=== PATIENT | male | born 1940 | race Caucasian/White ===

== ENCOUNTER → 2019-06-26 15:11 | Outpatient (CLI) | payer MEDICARE, SELFPAY ==
[2016-08-23 08:20] VITALS: BMI 25.1
[2019-06-26 15:20] LABS: Bacteria 0 SEEN /hpf (None Seen); Mucous, Urine 0 SEEN /hpf (<or=2+); Red Blood Cells-Urine 0 SEEN /hpf (0-5); Squamous Epithelial Cells - UA 0 SEEN /hpf (0-5); White Blood Cells 0 SEEN /hpf (0-5)
[2019-06-26 17:30] LABS: Color, Urine Yellow (Yellow); Glucose, Dipstick Normal (Normal); Ketone-Dipstick Negative (Negative); Leukocyte Esterase-Dipstick Negative /ul (Negative); Nitrite-Dipstick Negative (Negative); Occult Blood-Urine Negative /ul (Negative); Protein-Dipstick Negative (Negative); Urine Bilirubin Dipstick Negative (Negative); Urine Clarity Clear (Clear); Urine Urobilinogen Normal (Normal); Urine pH 6.5 (5.0 - 8.0)
[2019-06-26 17:35] LABS: Erythrocyte Sedimentation Rate 8 mm/hr (0-20)
[2019-06-26 17:47] LABS: PSA,Total - Annual Screen 2.71 ng/mL (0.00-4.00)
[2019-06-28 10:35] LABS: ASO Titer 294.7 IU/mL (0.0-200.0)
[2019-06-28 16:07] LABS: Anti-Nuclear Antibody Test Negative (.)
== END ==
PROVIDERS: PCP Internal Medicine; Referring Provider Dermatology Pediatric Dermatology; Visit Provider Dermatology Pediatric Dermatology
DX: L30.9 Dermatitis, unspecified (principal); Z12.5 Encounter for screening for malignant neoplasm of prostate
CPT/HCPCS: 36415; 81001; 84153; 85652; 86038; 86060; G0103

== ENCOUNTER 2019-09-12 11:36 | Emergency (ER) | payer MEDICARE, SELFPAY ==
[2019-09-12 11:37] VITALS: BP 144/90; PULSE 79; RESP 16; TEMP 36.5; O2SAT 96; BMI 24.2
--- NOTE | 2019-09-12 12:00 | ED.DCSUM_ITS ---
History of Present Illness Chief Complaint: Upper Extremity Injury Informant: Patient Onset: Today Mechanism/Context: Blunt Injury Quality of Pain: Dull Current Severity: Mild Maximum Severity: Moderate Worsened by: Injury Relieved by: Nothing Associated Symptoms: - - Large hematoma with skin tear. Negative for: Parasth esias, Weakness, Loss of function, Inability to ambulate, Loss of consciousness, Amnesia Narrative: Patient is an elderly [id number] male who sustained blunt trauma to the radial dorsal proximal portion of his left forearm. He denies pain or loss of use. He denies paresthesia, anesthesia motors. Tetanus is up-to-date. He is on aspirin. He is not on an anticoagulant. He states he was cleaning a stall. Bolted towards him and ran into him breaking the broom he was holding and bumping his left forearm. He denies head trauma. Eyes neck pain. Eyes chest pain. He has no other complaints. Tetanus Immunization: <5 years - Past Medical History (1) Benign prostatic hypertrophy Status: Chronic (2) Hypertension Status: Chronic Past Medical History - Allergies and Home Meds Allergies/Adverse Reactions: Allergies No Known Allergies Allergy (Verified 09/12/19 11:45) Primary Care Physician: Berny Tripathi MD [Primary Care Provider] - Prior records reviewed: Yes Surgical History: herniorrhaphy, - - Surgery for deviated nasal septum. Lives: Spouse/ Significant Other Smoking Status: Never smoker Alcohol: None Drugs: None - Family History Maternal Family History: Reports: No pertinent history Paternal Family History: Reports: No pertinent history Review of Systems General: Denies: Chills, Fever Musculoskeletal: Reports: Swelling. Denies: Myalgias, Arthralgias, Neck pain, Back pain, Extremity Pain Skin: Reports: Wounds. Denies: Rash, Abscess, Abrasions Neurological: Denies: Headache, Weakness, Parasthesia, Numbness, -, - Hematologic: Reports: Easy bruising. Denies: Easy bleeding, Lymphadenopathy Physical Exam Vital Signs/Narrative: Vital Signs Temp Pulse Resp BP Pulse Ox 09/12/19 11:37 97.7 F L 79 16 144/90 H 96 Inital Vital Signs reviewed: Yes General: Well nourished, Well developed Head: Normocephalic, Atraumatic Eyes: Perrl, EOMI Neck: Nontender, Full ROM Cardiovascular: Regular rate, Regular rhythm Respiratory: No distress Extremeties: With large hematoma dorsal radial proximal left forearm. There is a skin tear that is 4 cm x 2.5 cm x 4 cm. The area of injury does not involve the subcutaneous tissue. There is no pain palpation over the medial or lateral epicondyle. Is no pain the patient over the olecranon process. There is no pain the patient over the radial head. Patient is able to extend and flex and rotate i.e. supinate pronate at the elbow with no discomfort or hesitation. Radial pulses palpable. Median, radial and ulnar function intact. Skin: Normal color, Trauma - Deviously described under the extremity portion of the chart Neurological: Alert, Oriented x3, Cranial nerves II-XII grossly intact, Normal Strength, Normal Sensation Psychological: Normal affect - Glascow Coma Scale Eye Opening: Spontaneous Motor: Obeys Commands Verbal: Oriented Coma Scale Total: 15 Diagnostic/Tx/Re-eval - Medical Decision Making Since there is no pain no pain to palpation imaging was not obtained. He was treated for a hematoma with skin tear. He was discharged with appropriate home- going instructions. ED Disposition - Plan for ED Patient: Disposition: Home or Assisted Living Diagnosis: Skin tear of right forearm without complication, Traumatic hematoma of left forearm Instructions: ED AVULSION LACERATION, ED Hematoma Referrals: Berny Tripathi MD [Primary Care Provider] - 3-5 Days Additional Instructions: Dr. Tripathi in 3 to 5 days for skin tear/wound reevaluation.
== END 2019-09-12 12:29 | disposition home or self-care (01) ==
LOC: ED 12:09
PROVIDERS: Emergency Provider Emergency Medicine; PCP Internal Medicine
DX: S50.12XA Contusion of left forearm, initial encounter (principal); S51.811A Laceration without foreign body of right forearm, initial encounter; Y29.XXXA Contact with blunt object, undetermined intent, initial encounter; Y92.9 Unspecified place or not applicable; Y99.9 Unspecified external cause status; N40.0 Benign prostatic hyperplasia without lower urinary tract symptoms; I10 Essential (primary) hypertension; Z79.82 Long term (current) use of aspirin
CPT/HCPCS: 99283

== ENCOUNTER 2020-05-17 22:02 | Emergency (ER) | payer MEDICARE, SELFPAY ==
[2020-05-17 22:03] VITALS: BP 154/88; PULSE 85; RESP 20; TEMP 35.8; O2SAT 97; BMI 24.3
--- NOTE | 2020-05-17 22:07 | ED.RN ---
[facility] CALLED FOR EKG, PULLED OLD EKGS FOR
--- NOTE | 2020-05-17 22:16 | EKG12_ITS ---
Test Reason : PALPITATIONS Blood Pressure : / mmHG Vent. Rate : 084 BPM Atrial Rate : 084 BPM P-R Int : 196 ms QRS Dur : 100 ms QT Int : 354 ms P-R-T Axes : 050 -58 037 degrees QTc Int : 418 ms Normal sinus rhythm Left axis deviation Incomplete right bundle branch block Abnormal ECG Confirmed by ADELE CARVER, BRAYAN ([id number]), editor news RITA ROSALES ([id number]) on 05/19/2020 12:22:42 P M Referred By: PATIENCE Confirmed By:PADMA ANGULO MD
--- NOTE | 2020-05-17 22:20 | ED.VIS.GEN ---
History of Present Illness Chief Complaint: Palpitations Narrative: Patient presenting due to an elevated heart rate. Patient has an underlying history of hypertension, he is on metoprolol no recent changes in his medications or missed doses. Patient states that last night he felt a little bit restless so he took his blood pressure and his heart rate and noted that his heart rate was in the 80s. Tells me that his heart rate usually is in the 60s and this concerned him because his heart rate stayed in the 80s all day. He denies any has any chest pain. Denies any shortness of breath. He denies any palpitations, weight loss, changes in appetite, heat or cold intolerance. Patient does report that he has had similar episodes in the past. He denies any underlying history of arrhythmia. Review of systems otherwise negative. Past Medical History - Allergies and Home Meds Allergies/Adverse Reactions: Allergies No Known Allergies Allergy (Verified 05/17/20 22:09) Primary Care Physician: Berny Tripathi MD [Primary Care Provider] - Prior records reviewed: Yes Past Medical History: - - Hypertension, kidney stones Surgical History: herniorrhaphy, - - Surgery for deviated nasal septum. Smoking Status: Never smoker Alcohol: None Drugs: None - Family History Maternal Family History: Reports: No pertinent history Paternal Family History: Reports: No pertinent history Review of Systems All systems negative except as indicated General: Denies: Chills, Fever, Sweats Eyes: Denies: Visual changes - bilaterally, Diplopia ENT: Denies: Rhinorrhea, Sore throat Cardiovascular: Reports: Heart racing Respiratory: Denies: Dyspnea, Cough, Dyspnea on exertion Gastrointestinal: Denies: Abdominal pain, Nausea, Vomiting, Diarrhea, Melena, Hematochezia Genitourinary: Denies: Dysuria, Hematuria, Frequency Musculoskeletal: Denies: Back pain, Extremity Pain Skin: Denies: Rash, Wounds Neurological: Denies: Headache, Weakness, Numbness Physical Exam Vital Signs/Narrative: Vital Signs Temp Pulse Resp BP Pulse Ox 05/17/20 22:03 96.4 F L 85 20 H 154/88 H 97 Inital Vital Signs reviewed: Yes General: Well nourished, Well developed, No Acute Distress Head: Normocephalic, Atraumatic Eyes: Perrl, EOMI ENT: Moist mucous membranes, No rhinorrhea Neck: Supple, Nontender, - - Thyroid is normal to palpation, nontender Cardiovascular: Regular rate, Regular rhythm, No murmurs Respiratory: No distress, CTA bilaterally, Chest nontender Abdomen: Soft, Nontender, Nondistended, Normal bowel sounds Back: Nontender, Normal Inspection Extremities: Nontender, No edema Skin: Normal color, No rash Neurological: Alert, Oriented x3, Cranial nerves II-XII grossly intact, Normal Strength, Normal Sensation Psychological: Normal affect, Normal Mood Diagnostic/Tx/Re-eval Laboratory Data 05/17/20 05/17/20 22:17 22:17 WBC 6.5 RBC 4.36 L Hgb 14.2 Hct 42.1 MCV 96.6 H MCH 32.6 H MCHC 33.7 RDW Std Deviation 40.5 RDW Coeff of Francis 11.5 L Plt Count 142 L MPV 11.4 Immature Gran % (Auto) 0.200 Neut % (Auto) 72.7 H Lymph % (Auto) 17.4 L [place] % (Auto) 8.6 Eos % (Auto) 0.6 Baso % (Auto) 0.5 Absolute Neuts (auto) 4.7 Absolute Lymphs (auto) 1.13 Nucleated RBC % 0 Sodium 138 Potassium 3.6 Chloride 107 Carbon Dioxide 26.0 Anion Gap 5 BUN 25 H Creatinine 1.29 Estim Creat Clear Calc 49.29 Est GFR (MDRD) Af Amer 69 Est GFR (MDRD) Non-Af 57 L BUN/Creatinine Ratio 19.4 Glucose 145 H Calcium 9.0 Troponin I < 0.015 TSH 2.04 - EKG Initial EKG Interpretation: - Prior: Unchanged - Medical Decision Making Patient presented secondary to concerns for an elevated heart rate. In the emergency department the patient never really had elevated heart rates, no signs of malignant arrhythmia. Laboratory work-up found to be unremarkable, normal electrolytes TSH and troponin. Patient was given reassurance. Patient was discharged with outpatient follow-up with his primary care physician on Tuesday. ED Disposition - Plan for ED Patient: Disposition: Home or Assisted Living Diagnosis: Palpitations Instructions: ED Palpitations Referrals: Berny Tripathi MD [Primary Care Provider] - Keep David appointment
[2020-05-17 22:40] LABS: Absolute Lymphocyte Count 1.13 X10^3/uL (0.83-4.51); Absolute Neutrophil Count 4.7 X10^3/uL (2.0-7.7); Basophil# 0.03 X10^3/uL; Basophil% 0.5 % (0-1); Eosinophil# 0.04 X10^3/uL; Eosinophils% 0.6 % (0-5); Hematocrit 42.1 % (40-54); Hemoglobin 14.2 g/dL (13.0-16.5); Lymphocyte # 1.13 X10^3/ul (4.0); Lymphocyte % 17.4 % (19-41); Mean Corp Hgb Conc 33.7 g/dL (32-36); Mean Corpuscular Hgb 32.6 pg (27.0-32.0); Mean Corpuscular Volume 96.6 fL (80-94); Mean Platelet Vol. 11.4 fl (6.2-12.0); Monocyte# 0.56 X10^3/uL; Monocyte% 8.6 % (0-10); NRBC Flagged by Analyzer 0 % (0-5); Neutrophil # 4.72 X10^3/uL (2.7-7.7); Neutrophil % 72.7 % (47-70); Platelet Count 142 K/mm3 (150-450); RBC Distribution Width CV 11.5 % (11.6-14.6); RBC Distribution Width SD 40.5 fl (35.1-43.9); Red Blood Count 4.36 M/mm3 (4.6-6.2); White Blood Count 6.5 K/mm3 (4.4-11.0)
[2020-05-17 22:55] VITALS: BP 150/93; PULSE 103; RESP 13; O2SAT 97
[2020-05-17 22:59] LABS: Anion Gap 5 (5-15); BUN 25 mg/dL (7-18); BUN/Creat Ratio 19.4 RATIO (10-20); Chloride 107 mmol/L (98-107); Creatinine, Serum 1.29 mg/dL (0.70-1.30); EST Glomerular Filtration Rate 57 mL/min (>60); Est Glom Filt Rate - Afr Amer 69 mL/min (>60); Estimated Creatinine Clearance 49.29 ml/min; Glucose 145 mg/dL (74-106); Potassium 3.6 mmol/L (3.5-5.1); Sodium Level 138 mmol/L (136-145); Thyroid Stim Hormone (TSH) 2.04 uIU/mL (0.358-3.74)
[2020-05-17 23:26] VITALS: BP 142/67; PULSE 75; RESP 14; O2SAT 97
== END 2020-05-17 23:27 | disposition home or self-care (01) ==
PROVIDERS: Emergency Provider Emergency Medicine; PCP Internal Medicine
DX: R00.2 Palpitations (principal); I10 Essential (primary) hypertension; Z87.442 Personal history of urinary calculi
CPT/HCPCS: 80048; 84443; 84484; 85025; 93005; 99285; A4216

== ENCOUNTER → 2020-07-04 08:44 | Outpatient (CLI) | payer MEDICARE, SELFPAY ==
[2020-06-18 11:38] VITALS: BMI 24.0
--- NOTE | 2020-07-04 08:44 | ECHOD_ITS ---
Reason For Study: ARRHYTHMIA Procedure This was a 2D Doppler, Color Flow transthoracic echocardiogram. Exam performed in department. Left Ventricle Normal LV size. Left ventricular systolic function is normal. The estimated ejection fraction is 55 %. Stage 1 diastolic dysfunction. No regional wall motion abnormalities noted. Right Ventricle Normal RV size. Normal systolic function. Atria Normal left atrium. Normal right atrium. Tricuspid Valve Normal tricuspid valve. Mild (1+) tricuspid valve insufficiency. Pulmonary artery systolic pressure is 28 mmHg. Aortic Valve Trisinus/trileaflet aortic valve. Mild focal aortic valve calcification. Peak aortic valve gradient 14 mmHg. Mean aortic valve gradient 8 mmHg. Mild aortic stenosis. Great Vessels Normal aortic root. The pulmonary artery is normal size. Normal inferior vena cava. Pericardium/Pleural No pericardial effusion. MMode/2D Measurements & Calculations LVIDd: 5.3 cm IVSd: 1.1 cm LVOT diam: 2.0 cm LVIDs: 3.9 cm LVPWd: 1.0 cm LVOT area: 3.2 cm2 RVDd: 3.1 cm FS: 25.7 % Ao root diam: 3.0 cm LAV(MOD-bp): 42.6 ml LA A4 area: 14.7 cm2 LAV(MOD-bp) Indexed: 21.1 ml/m2 LAV(MOD-sp2): 42.6 ml LAV(MOD-sp4): 40.2 ml LA dimension(2D): 4.3 cm RA A4 area: 13.8 cm2 Time Measurements MV dec time: 0.28 sec Doppler Measurements & Calculations MV E max saran: 54.2 cm/sec Lat Peak E' Saran: 8.5 cm/sec Med Peak E' Saran: 6.8 cm/sec MV A max saran: 63.5 cm/sec E/E' lat: 6.4 E/E' med: 8.0 MV E/A: 0.85 Ao V2 max: 186.7 cm/sec LV V1 max: 94.5 cm/sec SV(LVOT): 71.7 ml Ao max P.0 mmHg LV V1 max P.6 mmHg Ao V2 mean: 134.0 cm/sec LV V1 mean P.1 mmHg Ao mean P.9 mmHg LV V1 mean: 69.2 cm/sec Ao V2 VTI: 42.3 cm LV V1 VTI: 22.5 cm DEREK(I,D): 1.7 cm2 DEREK(V,D): 1.6 cm2 PA V2 max: 115.4 cm/sec TR max saran: 247.7 cm/sec TR max P.5 mmHg ECHO/Echo Complete Interpretation Summary Normal LV size. Left ventricular systolic function is normal. The estimated ejection fraction is 55 %. Stage 1 diastolic dysfunction. Mean aortic valve gradient 8 mmHg. Mild aortic stenosis. Ordering Physician: Quique Arellano Referring Physician: Berny Tripathi Performed By: Eun Maldonado RDCS, RVT
== END ==
PROVIDERS: PCP Internal Medicine; Referring Provider Internal Medicine Cardiovascular Disease; Visit Provider Internal Medicine Cardiovascular Disease
DX: R00.2 Palpitations (principal)
CPT/HCPCS: 93306

== ENCOUNTER → 2020-07-07 09:01 | Outpatient (CLI) | payer MEDICARE, SELFPAY ==
[2020-06-18 11:38] VITALS: BMI 24.0
== END ==
PROVIDERS: PCP Internal Medicine; Referring Provider Internal Medicine Cardiovascular Disease; Visit Provider Internal Medicine Cardiovascular Disease
DX: R00.2 Palpitations (principal)
CPT/HCPCS: 93225; 93226

== ENCOUNTER → 2020-08-14 12:48 | Outpatient (CLI) | payer MEDICARE, SELFPAY ==
[2020-07-30 08:37] VITALS: BMI 24.8
--- NOTE | 2020-08-14 12:49 | US_ITS ---
STUDY: RENAL ULTRASOUND - COMPLETE REASON FOR EXAM: Male, 80 years old. ACUTE CHRONIC RENAL FAILURE TECHNIQUE: Ultrasound evaluation of the kidneys was performed with real-time and static wakefield-scale imaging. COMPARISON: None. FINDINGS: RIGHT KIDNEY: Normal location of the right kidney, which is normal in size. The right kidney measures 14.4 cm x 4.8 cm x 7.6 cm. There is a normal cortex of the right kidney. The renal cortex measures 1.6 cm. There is an 8.1 cm x 6.9 cm x 6.4 cm renal cyst. There are no right renal calculi. There is no right hydronephrosis. DISTAL RIGHT URETER: There is non-visualization of the distal right ureter. There is no demonstrated right ureterovesical junction calculus. There is no demonstrated right ureteral jet. LEFT KIDNEY: Normal location of the left kidney, which is normal in size. The left kidney measures 10.6 cm x 3.7 cm x 6.3 cm. There is a normal cortex of the left kidney. The renal cortex measures 1.2 cm. 3 left renal cysts are seen. The largest measures 5.1 cm x 5 cm x 4.9 cm. There is a 5 mm x 6 mm x 3 mm nonobstructive left intrarenal calculus. There is no left hydronephrosis. DISTAL LEFT URETER: There is non-visualization of the distal left ureter. There is no demonstrated left ureterovesical junction calculus. There is no demonstrated left ureteral jet. BLADDER: The bladder is not adequately distended for assessment. US/Kidney and Bladder IMPRESSION: Bilateral renal cysts more prominent on the left side. 5 mm x 6 mm x 3 mm nonobstructive calculus in the left kidney. Electronically Signed: Willam Barkley MD at 15:23 EDT , Service support ,
== END ==
PROVIDERS: PCP Internal Medicine; Referring Provider Internal Medicine Nephrology; Visit Provider Internal Medicine Nephrology
DX: N17.9 Acute kidney failure, unspecified (principal)
CPT/HCPCS: 76770

== ENCOUNTER → 2020-10-03 08:27 | Outpatient (CLI) | payer MEDICARE, SELFPAY ==
[2020-07-30 08:37] VITALS: BMI 24.8
[2020-10-03 09:09] LABS: Hematocrit 42.7 % (40-54); Hemoglobin 14.2 g/dL (13.0-16.5); Mean Corp Hgb Conc 33.3 g/dL (32-36); Mean Corpuscular Hgb 32.7 pg (27.0-32.0); Mean Corpuscular Volume 98.4 fL (80-94); Mean Platelet Vol. 11.3 fl (6.2-12.0); Platelet Count 126 K/mm3 (150-450); RBC Distribution Width CV 11.6 % (11.6-14.6); RBC Distribution Width SD 42.2 fl (35.1-43.9); Red Blood Count 4.34 M/mm3 (4.6-6.2); White Blood Count 5.3 K/mm3 (4.4-11.0)
[2020-10-03 09:54] LABS: BUN 23 mg/dL (7-18); BUN/Creat Ratio 21.5 RATIO (10-20); Calcium,Total 8.5 mg/dL (8.5-10.1); Chloride 108 mmol/L (98-107); Creatinine, Serum 1.07 mg/dL (0.70-1.30); EST Glomerular Filtration Rate 70 mL/min (>60); Est Glom Filt Rate - Afr Amer 85 mL/min (>60); Glucose 87 mg/dL (74-106); Phosphorus 1.9 mg/dL (2.5-4.9); Potassium 3.9 mmol/L (3.5-5.1); Sodium Level 141 mmol/L (136-145)
[2020-10-03 09:55] LABS: PTHIN 44.3 pg/mL (18.4-80.1)
== END ==
PROVIDERS: PCP Internal Medicine; Referring Provider Internal Medicine Nephrology; Visit Provider Internal Medicine Nephrology
DX: N17.9 Acute kidney failure, unspecified (principal); N18.31 Chronic kidney disease, stage 3a
CPT/HCPCS: 36415; 80069; 83970; 85027

== ENCOUNTER → 2021-04-02 08:03 | Outpatient (CLI) | payer MEDICARE, SELFPAY ==
[2020-07-30 08:37] VITALS: BMI 24.8
[2021-04-02 09:08] LABS: Albumin, Serum 3.8 g/dL (3.2-5.0); BUN 20 mg/dL (7-18); BUN/Creat Ratio 17.9 RATIO (10-20); Calcium,Total 8.8 mg/dL (8.5-10.1); Chloride 107 mmol/L (98-107); Creatinine, Serum 1.12 mg/dL (0.70-1.30); EST Glomerular Filtration Rate 67 mL/min (>60); Est Glom Filt Rate - Afr Amer 81 mL/min (>60); Glucose 95 mg/dL (74-106); Phosphorus 2.1 mg/dL (2.5-4.9); Potassium 3.8 mmol/L (3.5-5.1); Sodium Level 142 mmol/L (136-145)
== END ==
PROVIDERS: PCP Internal Medicine; Visit Provider Internal Medicine Nephrology
DX: N18.31 Chronic kidney disease, stage 3a (principal)
CPT/HCPCS: 36415; 80069

== ENCOUNTER 2021-08-14 16:11 | Emergency (ER) | payer MEDICARE, SELFPAY ==
[2021-08-14 16:13] VITALS: BP 124/71; PULSE 78; RESP 16; TEMP 36.9; O2SAT 98; BMI 27.7
--- NOTE | 2021-08-14 18:27 | EX.ED.DYSGE1 ---
HPI History of Present Illness Chief Complaint: Confusion Informant: patient and family Narrative Narrative: Patient presents with daughter. She is concerned that he seems to be a little bit confused on times. This is mostly based on taking morning medications. However, she is not sure in what time. He has been confused on his times. I have asked about 4 times and cannot get if this is been going on for days weeks months or years. I do find a note from outpatient visit from the fourth of this month that states he has had periods of confusion back in the winter. She states that this morning he took his morning meds. He takes these about an hour or so before eating. However, he took a metoprolol out of the pill bottle and took them with his morning meds but not with his breakfast meds. When she presented him with his breakfast meds he stated he had already taken the metoprolol and so he put that tablet back into the bottle. He remembered what he took. He just took it at a slightly different time. She states he has had no problems taking his meds in the afternoon or evening. This is only happened a couple times in the morning. He has also had an episode where he woke up quite early at about 1 or 2 in the morning and started his morning routine. Patient has had no fall or injury. He did have a recent UTI and was on Cipro. This stopped yesterday. They were just over at [facility]. A urinalysis was done that was clean. He has not had fevers or chills. 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 This was done at a facility in [facility]. He then had radiation. He has had a couple episodes of immunotherapy. They called his neuro oncology offices today at [facility] who recommended he go to the ER to get a CAT scan prior to his next visit. They are here to get a CAT scan and a CD copy of the images. 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 Nonrheumatic aortic (valve) stenosis Obstructive sleep apnea Sinus tachycardia Home Medications doxazosin 2 mg PO DAILY 10/18/15 [History Last Taken 08/23/16] multivitamin,fr-sler-kkphpmrz 1 tab PO DAILY 04/04/16 [History Last Taken 08/22/16] triamterene-hydrochlorothiazid 1 ea PO DAILY 04/04/16 [History Last Taken 08/23/16] pantoprazole 20 mg PO DAILY 08/23/16 [History Last Taken 08/23/16] amitriptyline 10 mg PO QHS 09/12/19 [History Last Taken Unknown] atorvastatin 10 mg PO QODAY 09/12/19 [History Last Taken Unknown] metoprolol tartrate 25 mg PO BID 05/17/20 [History Last Taken Unknown] Bifidobacterium infantis 4 mg capsule 4 mg PO DAILY 06/13/20 [History Last Taken Unknown] fluticasone propionate 50 mcg/actuation nasal spray,suspension 2 spray INTRANASAL DAILY 06/13/20 [History Last Taken Unknown] xmvbtsm-lxxwgztypmkrd-hekylgyi 250 mg-250 mg-65 mg tablet 1 tab PO ONCE PRN 06/18/20 [History Last Taken Unknown] Allergy/AdvReac Type Severity Reaction Status Date / Time terbinafine [From Lamisil] AdvReac Rash Verified 08/14/21 16:13 Surgical History (Updated 08/14/21 @ 20:[address] Miguel Hammer MD) H/O brain surgery History of nasal septoplasty Social History Smoking Status: Never smoker ROS ROS ED Constitutional Constitutional ED: Denies chills or fever(s) Eyes Eyes: Denies blurry vision ENT ENT ED: Denies rhinorrhea Cardiovascular Cardiovascular: Denies chest pain Respiratory/Chest Respiratory/Chest: Denies cough or dyspnea Gastrointestinal Gastrointestinal: Denies diarrhea or vomiting Genitourinary Genitourinary ED: Reports other Details: Recent UTI. Symptoms resolved, urine reported normal this morning and off of Cipro now. ; Denies dysuria or hematuria Musculoskeletal Musculoskeletal: Denies myalgias Integumentary Denies rash Neurologic Neurologic: Reports other Details: See history of present illness. ; Denies headache(s) Endocrine Endocrinology: Denies polydipsia or polyuria Allergic/Immunologic Allergic/Immunologic ED: Denies urticaria EXAM Physical Exam Const Vital Signs: 08/14/21 16:13 Temperature 98.5 F Temperature Source Temporal Pulse Rate 78 Respiratory Rate 16 Blood Pressure 124/71 H Blood Pressure Mean 88 Pulse Ox 98 Oxygen Delivery Method Room Air Positive well nourished and well developed General Appearance ED: well developed and NAD HEENT Reports moist mucous membranes HEENT Narrative: Well-healed surgical scar right side of scalp. Eyes General Eye ED: Negative for pale conjunctiva or scleral icterus Neck no JVD Chest Wall inspection of chest normal Resp normal respiratory effort and clear to auscultation bilaterally Cardio regular rate GI normal to inspection, nondistended, normoactive bowel sounds and non-tender Palpation: soft Back/Spine no CVA tenderness Extremity Negative for normal to inspection General Extremety ED: Negative for edema or tenderness General Extremity: Negative for edema Neuro oriented x3 Sensorium / Orientation: alert Psych mental status grossly normal Skin no rashes or lesions noted MDM MDM MDM Narrative Medical decision making narrative: Patient's blood work showed minimal anemia at 11 9. Electrolytes liver function test are overall normal. CAT scan does show some hygroma and mild vasogenic edema. However, he did have surgery as well as radiation recently. He does not have any shift. He does not have compression of ventricles. He also has no headaches. He has no vision changes. No gait problems. The daughter now found out from the patient that the reason he took the metoprolol or early is that he had a visiting nurse that was going to come out today that is a once a year visit for his health insurance. She was set to be there early in the morning and this would have disrupted the time he would normally take metoprolol. Therefore he wanted to take it before she got there so his blood pressure would be good and he did not forget to take it. This was a very rational decision that he made this morning. This is not confusion. Patient has an appointment with neurologist and neuro oncologist in 1 week. They would like to go home. They do have copy of images. She evidently has copies of prior imaging at home. I recommend they bring all these to the appointment so they can be compared. Lab Data Attestation: I reviewed the patient's lab results. Labs: Laboratory Results - last 24 hr 08/14/21 08/14/21 18:45 18:45 WBC 4.9 RBC 3.64 L Hgb 11.9 L Hct 37.1 L MCV 101.9 H MCH 32.7 H MCHC 32.1 RDW Std Deviation 54.2 H RDW Coeff of Francis 14.4 Plt Count 164 MPV 11.0 Immature Gran % (Auto) 0.600 Neut % (Auto) 64.4 Lymph % (Auto) 17.2 L [place] % (Auto) 14.2 H Eos % (Auto) 3.0 Baso % (Auto) 0.6 Absolute Neuts (auto) 3.2 Absolute Lymphs (auto) 0.85 Nucleated RBC % 0 Sodium 141 Potassium 4.1 Chloride 109 H Carbon Dioxide 29.0 Anion Gap 3 L BUN 18 Creatinine 0.99 Estim Creat Clear Calc 57.53 Est GFR (MDRD) Af Amer 93 Est GFR (MDRD) Non-Af 77 BUN/Creatinine Ratio 18.2 Glucose 95 Calcium 8.8 Total Bilirubin 0.50 AST 29 ALT 30 Alkaline Phosphatase 99 Total Protein 6.9 Albumin 3.5 Globulin 3.4 Albumin/Globulin Ratio 1.0 Radiography Diagnostic Testing: Clinical Impression(s) from Imaging Studies Brain CT 08/14/21 18:35 IMPRESSION: 1. No acute intracranial hemorrhage. 2. 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 3. Left frontal lobe mass with adjacent vasogenic edema. 4. Mild ventriculomegaly. 5. Recommend comparison to prior imaging studies. Absent comparison examination, recommend additional evaluation with contrast-enhanced MRI. Electronically Signed: Jw Shelby MD ([place]) at 19:01 EDT Reading Location ID and State: [facility] / [place] , Service support , Discharge Plan Triage Chief Complaint: Confusion ED Provider: Miguel Hammer Dx/Rx/DC Orders Clinical Impression: History of recent intracranial surgery Instructions: ED Confusion Prescriptions: No Action fluticasone propionate [Allergy Relief (fluticasone)] 50 mcg/actuation spray,suspension 2 spray INTRANASAL DAILY RF: 0 Align 4 mg capsule 4 mg PO DAILY RF: 0 Excedrin Migraine 250-250-65 mg tablet 1 tab PO ONCE PRNRF: 0 doxazosin 2 MG tablet 2 mg PO DAILY RF: 0 multivitamin,yx-pcdm-kyfyfhxy 1 TABLET tablet 1 tab PO DAILY RF: 0 triamterene-hydrochlorothiazid 1 EACH capsule 1 ea PO DAILY RF: 0 pantoprazole 20 MG tablet 20 mg PO DAILY RF: 0 atorvastatin 10 MG tablet 10 mg PO QODAY RF: 0 amitriptyline 10 MG tablet 10 mg PO QHS RF: 0 metoprolol tartrate 25 MG tablet 25 mg PO BID RF: 0 Primary Care Provider: Berny Tripathi Referrals: Berny Tripathi MD [Primary Care Provider] - As Needed Activity Restrictions/Additional Instructions: Keep your appointments this Tuesday. Disposition Disposition: Home, Self Care
--- NOTE | 2021-08-14 18:35 | CT_ITS ---
STUDY: CT BRAIN WITHOUT CONTRAST REASON FOR EXAM: Male, 81 years old. confusion RADIATION DOSAGE (If Supplied By Facility): CTDIvol = ( 44.99 ) mGy, DLP = ( 863.60 ) mGycm TECHNIQUE: Transaxial CT imaging of the brain was performed without administration of intravenous contrast material. Individualized dose optimization techniques were used for this CT. COMPARISON: No relevant priors. FINDINGS: Normal soft tissue structures. Normal calvarium. There is mild distention of the lateral and third ventricles. Mass of the left frontal lobe measuring 1.5 x 2.0 cm as seen on image 33 of series 2 with vasogenic edema posteriorly. There is also localized low density of the right frontal lobe with overlying craniotomy and linear hyperdensity, likely sequela of previous surgery. Small amount of extra-axial low-density fluid measuring 6 mm in thickness as seen on image 28 of series 2 likely representing a postoperative hygroma. Normal basal ganglia and thalami. Normal brainstem. Normal cerebellum. There is no intracranial hemorrhage. There are no findings of an acute ischemic infarction. Normal visualized paranasal sinuses. CT/Brain/Head without Contrast IMPRESSION: 1. No acute intracranial hemorrhage. 2. 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 3. Left frontal lobe mass with adjacent vasogenic edema. 4. Mild ventriculomegaly. 5. Recommend comparison to prior imaging studies. Absent comparison examination, recommend additional evaluation with contrast-enhanced MRI. Electronically Signed: Jw Shelby MD ([place]) at 19:01 EDT ,
[2021-08-14 18:58] LABS: Absolute Lymphocyte Count 0.85 X10^3/uL (0.83-4.51); Absolute Neutrophil Count 3.2 X10^3/uL (2.0-7.7); Basophil# 0.03 X10^3/uL; Basophil% 0.6 % (0-1); Eosinophil# 0.15 X10^3/uL; Hematocrit 37.1 % (40-54); Hemoglobin 11.9 g/dL (13.0-16.5); Lymphocyte # 0.85 X10^3/ul (0.83-4.51); Lymphocyte % 17.2 % (19-41); Mean Corp Hgb Conc 32.1 g/dL (32-36); Mean Corpuscular Hgb 32.7 pg (27.0-32.0); Mean Corpuscular Volume 101.9 fL (80-94); Monocyte% 14.2 % (0-10); NRBC Flagged by Analyzer 0 % (0-5); Neutrophil # 3.17 X10^3/uL (2.7-7.7); Neutrophil % 64.4 % (47-70); POSITIVE MORPHOLOGY YES; Platelet Count 164 K/mm3 (150-450); RBC Distribution Width CV 14.4 % (11.6-14.6); RBC Distribution Width SD 54.2 fl (35.1-43.9); Red Blood Count 3.64 M/mm3 (4.6-6.2); White Blood Count 4.9 K/mm3 (4.4-11.0)
[2021-08-14 19:03] LABS: Differential Indicated SCAN CRITERIA MET
[2021-08-14 19:16] LABS: AST(SGOT) 29 U/L (15-37); Alanine Aminotransfer ALT/SGPT 30 U/L (16-61); Albumin, Serum 3.5 g/dL (3.2-5.0); Alkaline Phosphatase 99 U/L (45-117); Anion Gap 3 (5-15); BUN 18 mg/dL (7-18); BUN/Creat Ratio 18.2 RATIO (10-20); Calcium,Total 8.8 mg/dL (8.5-10.1); Chloride 109 mmol/L (98-107); Creatinine, Serum 0.99 mg/dL (0.70-1.30); EST Glomerular Filtration Rate 77 mL/min (>60); Est Glom Filt Rate - Afr Amer 93 mL/min (>60); Estimated Creatinine Clearance 57.53 ml/min; Globulin 3.4 g/dL (2.2-4.2); Glucose 95 mg/dL (74-106); Potassium 4.1 mmol/L (3.5-5.1); Protein, Total 6.9 g/dL (6.4-8.2); Sodium Level 141 mmol/L (136-145)
[2021-08-14 20:06] VITALS: BP 157/81; PULSE 76; RESP 18; O2SAT 97
[2021-08-14 20:09] LABS: Atypical Lymphocyte 1+ %; Platelet Estimate ADEQUATE (ADEQ); Red Cell Morphology NORM C+C NORMAL (NORM C&C)
[2021-08-14 20:11] VITALS: RESP 18
== END 2021-08-14 20:11 | disposition home or self-care (01) ==
PROVIDERS: Emergency Provider Emergency Medicine; PCP Internal Medicine; Visit Provider Emergency Medicine
DX: R41.0 Disorientation, unspecified (principal); G93.6 Cerebral edema; N18.30 Chronic kidney disease, stage 3 unspecified; I12.9 Hypertensive chronic kidney disease with stage 1 through stage 4 chronic kidney disease, or unspecified chronic kidney disease; D18.1 Lymphangioma, any site; D64.9 Anemia, unspecified; E78.5 Hyperlipidemia, unspecified; G47.33 Obstructive sleep apnea (adult) (pediatric)
CPT/HCPCS: 70450; 80048; 80053; 85025; 99284

== ENCOUNTER 2021-08-16 20:31 | Emergency (ER) | payer MEDICARE, SELFPAY ==
[2021-08-16 20:31] VITALS: BP 106/86; PULSE 84; RESP 16; TEMP 36.4; O2SAT 97; BMI 27.7
--- NOTE | 2021-08-16 20:54 | CT_ITS ---
INDICATION: Trauma EXAMINATION: CT BRAIN - CT Head or Brain W/O Contrast Injection TECHNIQUE: Multiple axial images were obtained of the head without intravenous contrast. A radiation dose optimization technique was used for this scan. IV Contrast dosage and agent: None. COMPARISON: 08/14/2021 CT head FINDINGS: BRAIN PARENCHYMA: Left frontal lobe cortical hyperdensity with underlying vasogenic edema. This may represent a cortically based mass or possible cortical hemorrhage. No appreciable change compared to recent comparison exam. Right frontal lobe prior craniotomy with underlying thin hygroma and with underlying rim of slightly increased density and surrounding gliosis is unchanged compared to recent comparison exam. No other cortical or white matter abnormality exemplified. Normal midline anatomy. Note of scattered calcifications cavernous carotid arteries. Posterior fossa structures are unremarkable. CSF SPACES: Appropriate for age. No hydrocephalus. Basal cisterns are patent. CALVARIUM, SKULL BASE, PARANASAL SINUSES AND MASTOID AIR CELLS: Opacified right mastoid air cells, unchanged. No evidence of mastoiditis. No discrete lytic or blastic abnormalities. ORBITS: Both globes, extraocular muscles, optic nerves and retrobulbar fat appear unremarkable. ASPECTS Score for Acute Strokes: 10 CT/Brain/Head without Contrast IMPRESSION: No appreciable change compared to prior exam; left frontal lobe area of cortical hyperdensity and/or mass lesion with significant adjacent decreased density of the adjacent white matter suggesting vasogenic edema. No mass effect; this may be a chronic finding. No underlying cortical thinning to suggest scoliosis. Right frontal lobe findings are unchanged and likely chronic with areas of cortical thinning underlying the craniotomy more likely representing gliosis. Fluid right mastoid air cells without confluence to suggest mastoiditis. Electronically Signed: Uziel Santiago DO at 22:42 EDT ,
--- NOTE | 2021-08-16 20:55 | EX.ED.GENINJ ---
HPI History of Present Illness Chief Complaint: Head Injury Narrative Narrative: Patient presents with his because of injury to his head. He had a mechanical fall today. This was approximately 1 hour or less ago. He was pulling weeds and gravel, stood up and step down, and fell backwards, striking his head. He denies any neck pain or loss of consciousness. He sustained a superficial laceration to the right side of his occipital scalp. His tetanus immunization is up-to-date. 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 He did have a melanoma removed from the right side of his brain. She states that they were here recently and had a CT performed, and she is very concerned because he stated to the RN that he had a headache rated 4 out of 10 but denies any paresthesias. She wants to ensure that given his history of recent intracranial surgery with a blow to his head that there is no intracranial bleeding. 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 Nonrheumatic aortic (valve) stenosis Obstructive sleep apnea Sinus tachycardia Home Medications doxazosin 2 mg PO DAILY 10/18/15 [History Last Taken 08/23/16] multivitamin,zl-ulxm-jojvkntc 1 tab PO DAILY 04/04/16 [History Last Taken 08/22/16] triamterene-hydrochlorothiazid 1 ea PO DAILY 04/04/16 [History Last Taken 08/23/16] pantoprazole 20 mg PO DAILY 08/23/16 [History Last Taken 08/23/16] amitriptyline 10 mg PO QHS 09/12/19 [History Last Taken Unknown] atorvastatin 10 mg PO QODAY 09/12/19 [History Last Taken Unknown] metoprolol tartrate 25 mg PO BID 05/17/20 [History Last Taken Unknown] Bifidobacterium infantis 4 mg capsule 4 mg PO DAILY 06/13/20 [History Last Taken Unknown] fluticasone propionate 50 mcg/actuation nasal spray,suspension 2 spray INTRANASAL DAILY 06/13/20 [History Last Taken Unknown] bmzvbqs-yszwpflowgyzs-axntocif 250 mg-250 mg-65 mg tablet 1 tab PO ONCE PRN 06/18/20 [History Last Taken Unknown] Allergy/AdvReac Type Severity Reaction Status Date / Time terbinafine [From Lamisil] AdvReac Rash Verified 08/16/21 20:34 Surgical History H/O brain surgery History of nasal septoplasty Social History Smoking Status: Never smoker ROS ROS ED ROS Narrative Constitutional: No fever, no chills. HEENT: No sore throat. No neck pain. No loss of vision. No rhinorrhea. Cardiovascular: No chest pain. No palpitations. No pedal edema. Respiratory: No cough, no shortness of breath. Abdominal: No abdominal pain. No nausea. No vomiting. Genitourinary: No dysuria. No hematuria. Musculoskeletal: No myalgias. No arthralgias. Neurologic: Mild headache. No dizziness. No lightheadedness. Skin: No rash. No change in color. Psychiatric: No depression. No anxiety. EXAM Physical Exam Narrative Exam Narrative: Afebrile. Vital signs noted. HEENT: Normocephalic. Superficial laceration/abrasion to right occiput, no active bleeding, not gaping. PERRL, EOMI. Neck soft and supple. No point tenderness or step off. Cardiovascular: Regular rate and rhythm. No murmurs, rubs, or gallops appreciated. Respiratory: No tachypnea. Lungs clear to auscultation bilaterally. Gastrointestinal: Abdomen soft, nontender, with normoactive bowel sounds. No rebound or guarding. Neurological: Awake. Alert. Nonfocal, nonlateralizing. Able to raise arms above head without difficulty. Skin: No rash. Normal color. No pallor. Musculoskeletal: No pedal edema. Full range of motion extremities. Const Vital Signs: 08/16/21 20:31 08/16/21 20:39 Temperature 97.6 F L Temperature Source Temporal Pulse Rate 84 Respiratory Rate 16 Respiratory Effort Normal Non-Labored Respiratory Depth Normal Respiratory Pattern Normal Blood Pressure 106/86 H Blood Pressure Mean 92 Pulse Ox 97 Oxygen Delivery Method Room Air Room Air MDM MDM MDM Narrative Medical decision making narrative: Wound will be cleansed. We will obtain a CT of the brain to look for any intracranial hemorrhage. He has no neck pain and has full range of motion without pain. I do not feel CT of the neck is indicated. At this point in time, CT of the brain is pending. Will be signed out to Dr. Hammer, the overnight physician to check and make sure that there is no fracture or active hemorrhage. Final disposition is pending CT read. He is in stable condition. Discharge Plan Triage Chief Complaint: Head Injury ED Provider: Raymundo Ramirez Dx/Rx/DC Orders Clinical Impression: Fall, Superficial laceration of head, Closed head injury Instructions: ED Head Injury (Adult), ED Laceration Small or ... Prescriptions: No Action fluticasone propionate [Allergy Relief (fluticasone)] 50 mcg/actuation spray,suspension 2 spray INTRANASAL DAILY RF: 0 Align 4 mg capsule 4 mg PO DAILY RF: 0 Excedrin Migraine 250-250-65 mg tablet 1 tab PO ONCE PRN (Reason: Headache) RF: 0 doxazosin 2 MG tablet 2 mg PO DAILY RF: 0 multivitamin,in-ttgn-xrlxqagk 1 TABLET tablet 1 tab PO DAILY RF: 0 triamterene-hydrochlorothiazid 1 EACH capsule 1 ea PO DAILY RF: 0 pantoprazole 20 MG tablet 20 mg PO DAILY RF: 0 atorvastatin 10 MG tablet 10 mg PO QODAY RF: 0 amitriptyline 10 MG tablet 10 mg PO QHS RF: 0 metoprolol tartrate 25 MG tablet 25 mg PO BID RF: 0 Primary Care Provider: Berny Tripathi Referrals: Berny Tripathi MD [Primary Care Provider] - 3-5 Days
[2021-08-16 23:15] VITALS: BP 137/63; PULSE 71; RESP 15; O2SAT 98
== END 2021-08-16 23:15 | disposition home or self-care (01) ==
PROVIDERS: Emergency Provider Emergency Medicine; PCP Internal Medicine; Visit Provider Emergency Medicine
DX: S01.91XA Laceration without foreign body of unspecified part of head, initial encounter (principal); N18.30 Chronic kidney disease, stage 3 unspecified; I12.9 Hypertensive chronic kidney disease with stage 1 through stage 4 chronic kidney disease, or unspecified chronic kidney disease; E78.5 Hyperlipidemia, unspecified; W01.10XA Fall on same level from slipping, tripping and stumbling with subsequent striking against unspecified object, initial encounter; Y93.H2 Activity, gardening and landscaping; Y92.096 Garden or yard of other non-institutional residence as the place of occurrence of the external cause; G47.33 Obstructive sleep apnea (adult) (pediatric)
CPT/HCPCS: 70450; 99282

== ENCOUNTER 2021-09-28 12:47 | Emergency (ER) | payer MEDICARE, SELFPAY ==
[2021-09-28 12:48] VITALS: BP 160/86; PULSE 71; RESP 18; TEMP 37.3; O2SAT 96; BMI 28.3
--- NOTE | 2021-09-28 14:12 | CT_ITS ---
STUDY: CT CHEST, ABDOMEN T PELVIS WITH CONTRAST REASON FOR EXAM: Male, 81 years old. History of trauma. The patient fell down 10-12 steps. RADIATION DOSAGE (If Supplied By Facility): CTDIvol = ( 30.32 ) mGy, DLP = ( 2756.30 ) mGycm TECHNIQUE: Transaxial imaging was performed following intravenous administration of IV 100mL [id number]-300. Individualized dose optimization techniques were used for this CT. COMPARISON: No relevant priors. FINDINGS: CHEST Small hypodensities are seen in both lobes of the thyroid gland. The largest on the right side measures 1.2 cm. Calcified granulomas in the right middle lobe. Mild degree of increased markings at the right lung base suggestive of atelectasis and/or scarring. There is no demonstrated pleural abnormality. There are calcifications of the coronary arteries. Normal mediastinum. Calcified right hilar lymph nodes. Normal unenhanced pulmonary arteries. Normal aorta arch and descending thoracic aorta. There are multi-level degenerative changes of the thoracic spine. Loss of height of mid and lower dorsal vertebrae. There is no demonstrated abnormality of the visualized upper abdomen. ABDOMEN Normal liver. There is a solitary gallstone. Normal spleen. Normal pancreas. Normal bilateral adrenal glands. Right renal cysts. The largest cyst measures 6.9 cm x 6.1 cm. Left renal cysts. The largest cyst measures 2.9 cm x 3.6 cm. Gastric distention due to residual food particles. Normal small intestine. There are scattered colonic diverticula consistent with diverticulosis. There is non-visualization of the appendix. There is diffuse atherosclerotic calcification of the abdominal aorta, without a demonstrated aneurysm. Once again, there is narrowing of the distal abdominal aorta. Normal inferior vena cava. Normal retroperitoneum. Normal abdominal wall. There are diffuse degenerative changes of the visualized lumbar spine. PELVIS Distended urinary bladder. Phleboliths are seen within the pelvis. There is no pelvic fluid. There is no pelvic lymphadenopathy or mass lesion. There is diffuse atherosclerotic calcification of the pelvic arteries. Normal abdominal wall. CT/CT Chest, Abd, Pel w/Contrast IMPRESSION: Bilateral renal cysts. Scattered sigmoid diverticula. Calcified abdominal aorta. Solitary gallstone. Gastric distention with residual food particles. Electronically Signed: Willam Barkley MD at 15:09 EDT ,
--- NOTE | 2021-09-28 14:12 | CT_ITS ---
STUDY: CT CERVICAL SPINE WITHOUT CONTRAST REASON FOR EXAM: Male, 81 years old. Trauma RADIATION DOSAGE (If Supplied By Facility): CTDIvol = ( 30.32 ) mGy, DLP = ( 2756.30 ) mGycm TECHNIQUE: High resolution transaxial imaging was performed without contrast material. Sagittal and coronal images were reconstructed. Individualized dose optimization techniques were used for this CT. COMPARISON: None FINDINGS: Normal craniovertebral junction. There are degenerative changes of the anterior atlantoaxial articulation. There are erosions of the tip of the odontoid process. There is straightening of the normal cervical lordosis. Normal vertebral bodies and posterior osseous elements. C2-3: Normal endplates. Normal disc height and morphology. Normal central canal and intervertebral neuroforamina. C3-4: Marked degree of moderate disc space narrowing with spondylosis. Uncovertebral arthrosis. Bilateral neural foraminal stenosis worse on the left side. C4-5: Marked degree of disc space narrowing. Spondylosis. Uncovertebral arthrosis. Moderate degree of bilateral neural foraminal stenosis worse on the right side. C5-6: Marked degree of disc space narrowing. Spondylosis. Disc degeneration. Uncovertebral arthrosis. Bilateral neural foraminal stenosis worse on the left side. C6-7: Marked degree of disc space narrowing. Spondylosis. No significant stenosis is seen. C7-T1: Normal endplates. Normal disc height and morphology. Normal central canal and intervertebral neuroforamina. Atherosclerotic plaque formation of the carotid bifurcations. CT/Spine Cervical without Contras IMPRESSION: Multilevel degenerative changes, as described above. Multilevel bilateral neural foraminal stenosis. Electronically Signed: Willam Barkley MD at 15:02 EDT ,
--- NOTE | 2021-09-28 14:12 | CT_ITS ---
STUDY: CT BRAIN WITHOUT CONTRAST REASON FOR EXAM: Male, 81 years old. Trauma RADIATION DOSAGE (If Supplied By Facility): CTDIvol = ( 30.32 ) mGy, DLP = ( 2756.30 ) mGycm TECHNIQUE: Transaxial CT imaging of the brain was performed without administration of intravenous contrast material. Individualized dose optimization techniques were used for this CT. COMPARISON: Comparison is made with prior examination dated 08/16/2021. FINDINGS: Normal soft tissue structures. The patient is status post right frontal craniotomy. Postoperative changes and encephalomalacia are seen in the right frontal lobe. There is a thickening of the meninges overlying the right frontal lobe. This is unchanged. There is moderate cerebral atrophy with widening of the extra-axial spaces and ventricular dilatation. Persistent focal area of increased density in the anterior aspect of the right frontal lobe with the edema in the underlying white matter of the right frontal lobe although there has been improvement. This may represent persistent hemorrhagic contusion. Normal basal ganglia and thalami. Normal brainstem. Normal cerebellum. There is no intracranial hemorrhage. There are no findings of an acute ischemic infarction. Atherosclerotic calcification of the cavernous portions of the internal carotid arteries bilaterally. Normal visualized paranasal sinuses. CT/Brain/Head without Contrast IMPRESSION: Stable postoperative changes in the right frontal lobe. Persistent focal area of increased density in the anterior left frontal lobe with evidence of the white matter edema in the left frontal lobe although this has improved. This may represent persistent hemorrhagic contusion. Electronically Signed: Willam Barkley MD at 15:00 EDT ,
--- NOTE | 2021-09-28 14:14 | EX.ED.GENINJ ---
HPI History of Present Illness Chief Complaint: Trauma Detail of Chief Complaint: Fall down 10-12 steps Informant: patient and family Onset/Context/Timing Onset: Today Narrative Narrative: Patient presents after falling down 10-12 steps to the basement today. Family at bedside states there was no loss of consciousness. Patient is amnestic to the event. 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 He denies any pain at this time. [facility] Medical History Atherosclerosis of abdominal aorta Benign prostatic hypertrophy Calculus of left kidney CKD (chronic kidney disease) stage 3, GFR 30-59 ml/min (05/17/20) Essential hypertension GERD (gastroesophageal reflux disease) Hyperlipidemia Incomplete right bundle branch block Malignant melanoma of neck Multiple premature ventricular complexes Nonrheumatic aortic (valve) stenosis Obstructive sleep apnea Sinus tachycardia Home Medications doxazosin 2 mg tablet 2 mg PO DAILY 10/18/15 [History Last Taken 08/23/16] pantoprazole 20 mg tablet,delayed release 20 mg PO DAILY 08/23/16 [History Last Taken 08/23/16] amitriptyline 10 mg tablet 10 mg PO QHS 09/12/19 [History Last Taken Unknown] metoprolol tartrate 25 mg tablet 25 mg PO BID 05/17/20 [History Last Taken Unknown] Bifidobacterium infantis 4 mg capsule (Align) 4 mg PO DAILY 06/13/20 [History Last Taken Unknown] acetaminophen 325 mg tablet 650 mg PO ONCE PRN 08/26/21 [History Last Taken Unknown] azelastine 137 mcg (0.1 %) nasal spray aerosol 1 spray intranasal BID 08/26/21 [History Last Taken Unknown] cyanocobalamin (vitamin B-12) 500 mcg tablet,extended release 500 mcg PO DAILY 08/26/21 [History Last Taken Unknown] fluticasone propionate 50 mcg/actuation nasal spray,suspension (Allergy Relief (fluticasone)) 2 spray intranasal DAILY PRN 08/26/21 [History Last Taken Unknown] magnesium oxide 400 mg PO DAILY 08/26/21 [History Last Taken Unknown] methylprednisolone 4 mg tablets in a dose pack (Medrol (Andrew)) See Rx Instructions PO PER PKG DIR 08/26/21 [History Last Taken Unknown] triamcinolone acetonide 0.1 % topical cream 1 applic topical DAILY 08/26/21 [History Last Taken Unknown] voriconazole 200 mg tablet ea PO 08/26/21 [History Last Taken Unknown] Allergy/AdvReac Type Severity Reaction Status Date / Time red dye Allergy Severe rash Verified 09/28/21 12:52 terbinafine [From Lamisil] AdvReac Rash Verified 09/28/21 12:52 Surgical History H/O brain surgery (05/19/21) History of nasal septoplasty Social History Smoking Status: Never smoker alcohol intake: never substance use type: does not use caffeine: No ROS ROS ED Constitutional Constitutional ED: Denies chills or fever(s) Eyes Eyes: Denies change in vision or discharge from eye(s) ENT ENT ED: Denies discharge from eye(s), rhinorrhea or sore throat Cardiovascular Cardiovascular: Denies chest pain or palpitations Respiratory/Chest Respiratory/Chest: Denies cough or dyspnea Gastrointestinal Gastrointestinal: Denies abdominal pain, diarrhea, nausea or vomiting Genitourinary Genitourinary ED: Denies dysuria Musculoskeletal Musculoskeletal: Denies back pain or extremity pain Integumentary Reports Abrasions; Denies rash Neurologic Neurologic: Denies headache(s) or weakness Allergic/Immunologic Allergic/Immunologic ED: Denies lip swelling or urticaria EXAM Physical Exam Const Vital Signs: 09/28/21 12:48 09/28/21 12:53 09/28/21 15:25 Temperature 99.2 F H Temperature Source Oral Pulse Rate 71 72 Respiratory Rate 18 16 Respiratory Effort Normal Respiratory Depth Normal Respiratory Pattern Normal Blood Pressure 160/86 H 168/72 H Blood Pressure Mean 110 104 Pulse Ox 96 98 Oxygen Delivery Method Room Air Room Air Room Air 09/28/21 16:29 09/28/21 17:00 Temperature Temperature Source Pulse Rate 77 77 Respiratory Rate 16 18 Respiratory Effort Respiratory Depth Respiratory Pattern Blood Pressure 155/81 H Blood Pressure Mean 105 Pulse Ox 98 97 Oxygen Delivery Method Room Air Positive well nourished and well developed General Appearance ED: well developed HEENT HEENT Narrative: Multiple areas of his of ecchymosis and hematoma noted over the forehead. Eyes PERRL and EOMs intact bilaterally Neck Neck Narrative: No C-spine tenderness. C-collar remains in place. Chest Wall inspection of chest normal and palpation of chest normal Resp normal respiratory effort and clear to auscultation bilaterally Cardio regular rhythm, S1 normal heart sound and S2 normal heart sound GI GI Narrative: Abdomen is soft and nontender. Pelvis is stable. Extremity Extremity Narrative: Skin tears noted to the right elbow and left extensor surface of the wrist. Full range of motion with no bony tenderness. Good range of motion the lower extremities with no pain. Neuro oriented x3 and moves all extremities Skin Skin Narrative: As noted above. MDM MDM MDM Narrative Medical decision making narrative: Lab work is sent. CT scan of the head, C-spine, chest, abdomen, and pelvis are obtained. Lab Data Attestation: I reviewed the patient's lab results. Labs: Laboratory Results - last 24 hr 09/28/21 09/28/21 09/28/21 14:20 14:20 14:20 WBC 7.6 RBC 4.42 L Hgb 14.2 Hct 43.5 MCV 98.4 H MCH 32.1 H MCHC 32.6 RDW Std Deviation 55.8 H RDW Coeff of Francis 15.4 H Plt Count 68 L MPV 9.9 Immature Gran % (Auto) 4.700 H Neut % (Auto) 84.6 H Lymph % (Auto) 5.5 L Denali % (Auto) 4.9 Eos % (Auto) 0.0 Baso % (Auto) 0.3 Absolute Neuts (auto) 6.4 Absolute Lymphs (auto) 0.42 L Nucleated RBC % 0 Differential Comment COMMENT Platelet Estimate MOD DEC PT 13.7 INR 1.1 APTT 21.2 L Sodium 139 Potassium 4.4 Chloride 104 Carbon Dioxide 30.0 Anion Gap 5 BUN 32 H Creatinine 0.98 Estim Creat Clear Calc 60.01 Est GFR (MDRD) Af Amer 94 Est GFR (MDRD) Non-Af 78 BUN/Creatinine Ratio 32.6 H Glucose 141 H Calcium 8.5 Radiography Diagnostic Testing: Clinical Impression(s) from Imaging Studies Brain CT 09/28/21 14:12 IMPRESSION: Stable postoperative changes in the right frontal lobe. Persistent focal area of increased density in the anterior left frontal lobe with evidence of the white matter edema in the left frontal lobe although this has improved. This may represent persistent hemorrhagic contusion. Electronically Signed: Willam Barkley MD at 15:00 EDT , Cervical Spine CT 09/28/21 14:12 IMPRESSION: Multilevel degenerative changes, as described above. Multilevel bilateral neural foraminal stenosis. Electronically Signed: Willam Barkley MD at 15:02 EDT , Chest/Abdomen/Pelvis CT 09/28/21 14:12 IMPRESSION: Bilateral renal cysts. Scattered sigmoid diverticula. Calcified abdominal aorta. Solitary gallstone. Gastric distention with residual food particles. Electronically Signed: Willam Barkley MD at 15:09 EDT , Treatment and Re-Evaluation Narrative: Lab work is unremarkable. Coags normal. CT scan of the head shows postoperative changes. No acute finding associated with trauma noted. CT of the C-spine shows degenerative changes only. CT scan of the chest/abdomen/pelvis reveals some chronic changes but no evidence of acute injury from his fall. Patient is sitting at bedside on repeat evaluation. He has no significant complaints. Test results are reviewed with patient's at bedside. He has had some confusion recently after his surgery. Further instructions are discussed with her as well as return indications. Patient is discharged home with family. Discharge Plan Triage Chief Complaint: Trauma ED Provider: Karin Hoffman Dx/Rx/DC Orders Clinical Impression: Fall, Contusion of scalp, Avulsion of skin, Closed head injury Instructions: ED Scalp Contusion, ED Head Injury (Adult) Prescriptions: No Action Align 4 mg capsule 4 mg PO DAILY fluticasone propionate [Allergy Relief (fluticasone)] 50 mcg/actuation spray,suspension 2 spray INTRANASAL DAILY PRN Rx Instructions: administer into each nostril triamcinolone acetonide 0.1 % cream 1 applic topical DAILY acetaminophen 325 mg tablet 650 mg PO ONCE PRN azelastine 137 mcg (0.1 %) aerosol,spray 1 spray intranasal BID Rx Instructions: administer into each nostril voriconazole 200 mg tablet PO Label Comments: take 1 tablet by mouth twice a day cyanocobalamin (vitamin B-12) 500 mcg tablet extended release 500 mcg PO DAILY magnesium oxide 400 mg magnesium tablet 400 mg PO DAILY methylprednisolone [Medrol (Andrew)] 4 mg tablets,dose pack See Rx Instructions PO PER PKG DIR Rx Instructions: PO PER PKG DIR doxazosin 2 MG tablet 2 mg PO DAILY pantoprazole 20 MG tablet 20 mg PO DAILY amitriptyline 10 MG tablet 10 mg PO QHS metoprolol tartrate 25 MG tablet 25 mg PO BID Primary Care Provider: Berny Tripathi Referrals: Berny Tripathi MD [Primary Care Provider] - 1 Week Disposition Disposition: Home, Self Care Discharge Date/Time: 09/28/21 17:05
[2021-09-28 14:34] LABS: Absolute Lymphocyte Count 0.42 X10^3/uL (0.83-4.51); Absolute Neutrophil Count 6.4 X10^3/uL (2.0-7.7); Basophil# 0.02 X10^3/uL; Basophil% 0.3 % (0-1); Hematocrit 43.5 % (40-54); Hemoglobin 14.2 g/dL (13.0-16.5); Lymphocyte # 0.42 X10^3/ul (0.83-4.51); Lymphocyte % 5.5 % (19-41); Mean Corp Hgb Conc 32.6 g/dL (32-36); Mean Corpuscular Hgb 32.1 pg (27.0-32.0); Mean Corpuscular Volume 98.4 fL (80-94); Mean Platelet Vol. 9.9 fl (6.2-12.0); Monocyte# 0.37 X10^3/uL; Monocyte% 4.9 % (0-10); NRBC Flagged by Analyzer 0 % (0-5); Neutrophil # 6.42 X10^3/uL (2.7-7.7); Neutrophil % 84.6 % (47-70); POSITIVE COUNT YES; POSITIVE DIFFERENTIAL YES; Platelet Count 68 K/mm3 (150-450); RBC Distribution Width CV 15.4 % (11.6-14.6); RBC Distribution Width SD 55.8 fl (35.1-43.9); Red Blood Count 4.42 M/mm3 (4.6-6.2); White Blood Count 7.6 K/mm3 (4.4-11.0)
[2021-09-28 14:35] LABS: Differential Indicated SCAN CRITERIA MET
[2021-09-28 14:41] LABS: International Normalized Ratio 1.1; Prothrombin Time (Protime)PT. 13.7 SECONDS (11.7-14.9)
[2021-09-28 14:42] LABS: Partial Thromboplast Time 21.2 Seconds (24.1-36.2)
[2021-09-28 14:47] LABS: Anion Gap 5 (5-15); BUN 32 mg/dL (7-18); BUN/Creat Ratio 32.6 RATIO (10-20); Calcium,Total 8.5 mg/dL (8.5-10.1); Chloride 104 mmol/L (98-107); Creatinine, Serum 0.98 mg/dL (0.70-1.30); EST Glomerular Filtration Rate 78 mL/min (>60); Est Glom Filt Rate - Afr Amer 94 mL/min (>60); Estimated Creatinine Clearance 60.01 ml/min; Glucose 141 mg/dL (74-106); Potassium 4.4 mmol/L (3.5-5.1); Sodium Level 139 mmol/L (136-145)
[2021-09-28 15:10] LABS: Platelet Estimate MOD DEC (ADEQ)
[2021-09-28 15:25] VITALS: BP 168/72; PULSE 72; RESP 16; O2SAT 98
[2021-09-28 16:29] VITALS: BP 155/81; PULSE 77; RESP 16; O2SAT 98
[2021-09-28 17:00] VITALS: PULSE 77; RESP 18; O2SAT 97
== END 2021-09-28 17:05 | disposition home or self-care (01) ==
PROVIDERS: Emergency Provider Emergency Medicine; PCP Internal Medicine; Visit Provider Emergency Medicine
DX: S08.0XXA Avulsion of scalp, initial encounter (principal); N18.30 Chronic kidney disease, stage 3 unspecified; I12.9 Hypertensive chronic kidney disease with stage 1 through stage 4 chronic kidney disease, or unspecified chronic kidney disease; W10.9XXA Fall (on) (from) unspecified stairs and steps, initial encounter; E78.5 Hyperlipidemia, unspecified; K21.9 Gastro-esophageal reflux disease without esophagitis; G47.33 Obstructive sleep apnea (adult) (pediatric); N40.0 Benign prostatic hyperplasia without lower urinary tract symptoms; K57.30 Diverticulosis of large intestine without perforation or abscess without bleeding
CPT/HCPCS: 51702; 70450; 71260; 72125; 74177; 80048; 81001; 85025; 85610; 85730; 99285; Q9967; A4216

== ENCOUNTER 2021-09-28 23:49 | Emergency (ER) | payer MEDICARE, SELFPAY ==
[2021-09-28 23:50] VITALS: BP 139/90; PULSE 100; RESP 20; TEMP 36.3; O2SAT 95; BMI 25.6
--- NOTE | 2021-09-29 00:28 | EX.ED.DYSGE1 ---
HPI History of Present Illness Chief Complaint: Alt LOC Detail of Chief Complaint: confused Informant: patient and spouse/S.O. Onset/Context/Timing Onset: Today (worse than in past few weeks) Context: Gradual Onset (worsening since injury earlier today) Timing: Continuous Quality: confused/disoriented Current Severity: Severe Maximum Severity: Severe Worsened by: nothing in particular Relieved by: nothing Associated Symptoms Associated Symptoms: urinary frequency Narrative Narrative: Patient was involved in a fall down some steps today, he was seen here in the ER and had full body scan that was negative for any internal injuries. This includes his head. 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 No recurrent falls since the injury earlier, however became very concerned because he is urinating constantly, after he urinates, a minute later he demands that he goes back to the bathroom, he is using a walker that he is very unsteady with, she feels unsafe with him wandering back and forth to the bathroom, and who knows elsewhere, if she goes to bed and cannot redirect him physically. Patient right now denies any pain, headache, nausea, vision changes. [facility] Medical History Atherosclerosis of abdominal aorta Benign prostatic hypertrophy Calculus of left kidney CKD (chronic kidney disease) stage 3, GFR 30-59 ml/min (05/17/20) Essential hypertension GERD (gastroesophageal reflux disease) Hyperlipidemia Incomplete right bundle branch block Malignant melanoma of neck Multiple premature ventricular complexes Nonrheumatic aortic (valve) stenosis Obstructive sleep apnea Sinus tachycardia Home Medications doxazosin 2 mg tablet 2 mg PO DAILY 10/18/15 [History Last Taken 08/23/16] amitriptyline 10 mg tablet 10 mg PO QHS 09/12/19 [History Last Taken Unknown] metoprolol tartrate 25 mg tablet 25 mg PO BID 05/17/20 [History Last Taken Unknown] Bifidobacterium infantis 4 mg capsule (Align) 4 mg PO DAILY 06/13/20 [History Last Taken Unknown] azelastine 137 mcg (0.1 %) nasal spray aerosol 1 spray intranasal BID 08/26/21 [History Last Taken Unknown] cyanocobalamin (vitamin B-12) 500 mcg tablet,extended release 500 mcg PO DAILY 08/26/21 [History Last Taken Unknown] magnesium oxide 400 mg PO DAILY 08/26/21 [History Last Taken Unknown] triamcinolone acetonide 0.1 % topical cream 1 applic topical DAILY 08/26/21 [History Last Taken Unknown] famotidine 20 mg tablet 20 tab PO DAILY 09/29/21 [History Last Taken Unknown] isavuconazonium sulfate 186 mg capsule (Cresemba) 372 mg PO DAILY 09/29/21 [History Last Taken Unknown] levothyroxine 50 mcg tablet 50 mcg PO DAILY 09/29/21 [History Last Taken Unknown] prednisone 20 mg tablet 20 mg PO BID 09/29/21 [History Last Taken Unknown] Allergy/AdvReac Type Severity Reaction Status Date / Time red dye Allergy Severe rash Verified 09/28/21 23:50 terbinafine [From Lamisil] AdvReac Rash Verified 09/28/21 23:50 Surgical History H/O brain surgery (05/19/21) History of nasal septoplasty Social History Smoking Status: Never smoker alcohol intake: never substance use type: does not use caffeine: No ROS ROS ED Constitutional Constitutional ED: Denies chills or fever(s) Eyes Eyes: Denies change in vision or diplopia ENT ENT ED: Denies rhinorrhea or sore throat Cardiovascular Cardiovascular: Denies chest pain or palpitations Respiratory/Chest Respiratory/Chest: Denies cough or dyspnea Gastrointestinal Gastrointestinal: Denies abdominal pain, diarrhea, nausea or vomiting Genitourinary Genitourinary ED: Reports urinary frequency; Denies dysuria or hematuria Musculoskeletal Musculoskeletal: Denies back pain or neck pain Integumentary Denies abscess or rash Neurologic Neurologic: Reports as per HPI and confusion; Denies headache(s), paresthesias or weakness Psychiatric Psychiatric: Denies anxiety or suicidal thoughts EXAM Physical Exam Const Vital Signs: 09/28/21 23:50 09/29/21 01:49 Temperature 97.4 F L Temperature Source Temporal Pulse Rate 100 Respiratory Rate 20 H 17 Blood Pressure 139/90 H Blood Pressure Mean 106 Pulse Ox 95 Oxygen Delivery Method Room Air Room Air Positive well nourished and well developed General Appearance ED: well developed and NAD HEENT Reports moist mucous membranes HEENT Narrative: Multiple areas of bruising from recent trauma throughout the posterior and anterior scalp worse on the left anteriorly into the forehead and zygomatic arch, all of this is mildly tender, but there is no instability or areas of major tenderness. Some boggy hematoma posteriorly and left temporal/forehead. No crepitance or depression. No active bleeding, some superficial abrasions. Eyes PERRL and EOMs intact bilaterally Neck full ROM and supple Chest Wall inspection of chest normal and palpation of chest normal Resp normal respiratory effort and clear to auscultation bilaterally Cardio regular rate, regular rhythm and no murmurs GI non-tender and non-distended Auscultation: normoactive bowel sounds Palpation: soft Back/Spine no CVA tenderness General Back: other FROM Extremity normal to inspection General Extremety ED: Negative for edema, pulses abnormal or tenderness General Extremity: Negative for edema or pulses abnormal Neuro CN's II-XII intact bilaterally and no sensory deficits noted Neuro Narrative: Oriented to person, place, city, state, year, but not the month or the season. Is redirectable. No dysarthria or aphasia. Is able to identify simple objects in the room. Nav Coma Scale: document GCS findings Spontaneous Obeys Commands Confused 14 Sensorium / Orientation: awake and alert Motor Exam: strength 5/5 throughout Psych mental status grossly normal Skin no rashes or lesions noted and no wounds MDM MDM MDM Narrative Medical decision making narrative: Patient had labs earlier today which I reviewed, in addition to CT scans which I reviewed and showed no acute traumatic abnormality. I do not think those need to be repeated. I did do a urinalysis based on his urinary symptoms, which after discussing with the , preceded his injury this past day. In fact, this is been going on for a couple days, where he has had more nocturia than usual. However now he is confused with urinary frequency. We did a urinalysis here, there is no sign of urinary tract infection, postvoid residual was almost 200 cc of urine, he had less urgency here than he did at home but he has been lying down which is probably why. In further discussion he does have a history of what they think was an enlarged prostate, he needed a catheter for perioperative reasons, but has never seen a urologist, just Dr. Moe with nephrology. I recommend putting a catheter and now patient is amenable to that, wants him admitted because she is concerned about his mental status and safety at home tonight, with or without a catheter. I think that is reasonable if he is that confused and unsafe. Discussed with hospitalist here, given the complexity of his recent medical history and likelihood that his worsening is due to concussion/injury, they prefer he be transferred to a trauma center. states all of his medical care is at [facility]. Discussed with her transfer center, they recommend the closest trauma center which is [facility]. Discussed with her emergency department and accepted there by Dr. Almazan. Lab Data Attestation: I reviewed the patient's lab results. Labs: Laboratory Results - last 24 hr 09/29/21 00:40 Urine Color Yellow Urine Clarity Clear Urine pH 7.0 Ur Specific Secretary 1.010 Urine Protein 15 H Urine Glucose (UA) Normal Urine Ketones Negative Urine Occult Blood Negative Urine Nitrite Negative Urine Bilirubin Negative Urine Urobilinogen Normal Ur Leukocyte Esterase Negative Urine RBC 0 SEEN Urine WBC 0 SEEN Ur Squamous Epith Cells 0 SEEN Amorphous Sediment 2+ Urine Bacteria RARE Urine Mucus 0 SEEN Discharge Plan Triage Chief Complaint: Alt LOC ED Provider: Kaushal Olivares Dx/Rx/DC Orders Clinical Impression: Acute urinary retention, Acute confusion, Concussion Prescriptions: No Action Align 4 mg capsule 4 mg PO DAILY triamcinolone acetonide 0.1 % cream 1 applic topical DAILY azelastine 137 mcg (0.1 %) aerosol,spray 1 spray intranasal BID Rx Instructions: administer into each nostril cyanocobalamin (vitamin B-12) 500 mcg tablet extended release 500 mcg PO DAILY magnesium oxide 400 mg magnesium tablet 400 mg PO DAILY doxazosin 2 MG tablet 2 mg PO DAILY amitriptyline 10 MG tablet 10 mg PO QHS metoprolol tartrate 25 MG tablet 25 mg PO BID prednisone 20 mg Tablet 20 mg PO BID famotidine 20 mg tablet 20 tab PO DAILY Label Comments: take 1 tablet by mouth once daily levothyroxine 50 mcg Tablet 50 mcg PO DAILY Cresemba 186 mg Capsule 372 mg PO DAILY Rx Instructions: start 12-24 hrs after loading dose; swallow whole; do not crush, chew, open, break, dissolve, or cut Primary Care Provider: Berny Tripathi Referrals: Berny Tripathi MD [Primary Care Provider] - Disposition Disposition: Acute Care Hospital Discharge Location: [facility]
[2021-09-29 00:44] LABS: Color, Urine Yellow (Yellow); Glucose, Dipstick Normal (Normal); Ketone-Dipstick Negative (Negative); Leukocyte Esterase-Dipstick Negative /ul (Negative); Mucous, Urine 0 SEEN /hpf (<or=2+); Nitrite-Dipstick Negative (Negative); Occult Blood-Urine Negative /ul (Negative); Protein-Dipstick 15 mg/dl (Negative); Red Blood Cells-Urine 0 SEEN /hpf (0-5); Squamous Epithelial Cells - UA 0 SEEN /hpf (0-5); Urine Bilirubin Dipstick Negative (Negative); Urine Clarity Clear (Clear); Urine Urobilinogen Normal (Normal); White Blood Cells 0 SEEN /hpf (0-5)
[2021-09-29 00:51] LABS: Amorphous Sediment 2+; Bacteria RARE /hpf (None Seen)
--- NOTE | 2021-09-29 01:30 | ED.RN ---
bladder scan 172
[2021-09-29 01:49] VITALS: RESP 17
[2021-09-29] MEDS: Lidocaine Jelly 2% 20 ML Syringe (URO-JET) 1 APPLIC TOPICAL (02:43)
[2021-09-29 03:00] VITALS: PULSE 105; RESP 17; O2SAT 98
[2021-09-29 03:27] VITALS: BP 120/90; PULSE 120; RESP 18; O2SAT 95
--- NOTE | 2021-09-29 03:48 | NURSING ---
PHYSICIANS CALLED AT 0311 ETA 45-60.
[2021-09-29 04:02] VITALS: BP 130/79; PULSE 88; RESP 17; O2SAT 95
== END 2021-09-29 04:27 | disposition short-term general hospital (02) ==
PROVIDERS: Emergency Provider Emergency Medicine; PCP Internal Medicine; Visit Provider Emergency Medicine
DX: S06.0X0A Concussion without loss of consciousness, initial encounter (principal); N18.30 Chronic kidney disease, stage 3 unspecified; E78.5 Hyperlipidemia, unspecified; R33.9 Retention of urine, unspecified; R35.0 Frequency of micturition; I12.9 Hypertensive chronic kidney disease with stage 1 through stage 4 chronic kidney disease, or unspecified chronic kidney disease; R41.0 Disorientation, unspecified; W10.9XXA Fall (on) (from) unspecified stairs and steps, initial encounter; K21.9 Gastro-esophageal reflux disease without esophagitis; G47.33 Obstructive sleep apnea (adult) (pediatric)
CPT/HCPCS: 51702; 81001; A4216

== ENCOUNTER 2021-10-13 18:32 | Inpatient (IN) | payer MEDICARE, SELFPAY ==
[2021-10-13 19:33] VITALS: BP 120/75; PULSE 86; RESP 16; TEMP 36.6; O2SAT 97
[2021-10-13 20:15] VITALS: PULSE 86; RESP 16; O2SAT 97; BMI 24.6
--- NOTE | 2021-10-13 20:30 | PCM.HP.STD ---
[facility] - General General Date of Admission: 10/13/21 Date of Service: 10/14/21 Chief Complaint: Here for rehab. HPI Narrative 09/29/2021 WINSTON WESTFALL, is a 81 Male who presents to [facility] Emergency Department with confusion. Fall today, full body scan negative, recent melanoma removed from skull. Elevated liver enzymes, treated with high dose prednisone. On antifungals for fungal infection. Confused, fell, hit head. Urinalysis negative, Post Void residual 200cc, indwelling dunlap catheter. Transfer to [facility] for trauma. 09/29/2021 Discharged to home, moderate biparietal/scalp swelling hematoma. Neurosurgery recommended no surgical intervention. 10/03/2021 Admit to [facility]. Repeat CT head shows intraparenchymal hemorrhage, no interval changes. PT/OT for acute rehab versus [facility] facility. CT abdomen/pelvis to rule out retro peritoneal hematoma. 10/04/2021 Neurosurgery recommends no surgery for intracranial hemorrhage. 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 PT/OT for placement. Stop Tramadol, Stop Tylenol, lower oxycodone to 2.5mg prn. Medical records, incomplete. 10/13/2021 Admit to TCU with debility, here for rehabilitation, strengthening, prior to discharge home with . [facility] Medical History Atherosclerosis of abdominal aorta Benign prostatic hypertrophy Calculus of left kidney CKD (chronic kidney disease) stage 3, GFR 30-59 ml/min (05/17/20) Essential hypertension GERD (gastroesophageal reflux disease) Hyperlipidemia Incomplete right bundle branch block Malignant melanoma of neck Multiple premature ventricular complexes Nonrheumatic aortic (valve) stenosis Obstructive sleep apnea Sinus tachycardia Home Medications doxazosin 2 mg tablet 2 mg PO DAILY 10/18/15 [History Last Taken 08/23/16] amitriptyline 10 mg tablet 10 mg PO QHS 09/12/19 [History Last Taken Unknown] metoprolol tartrate 25 mg tablet 25 mg PO BID 05/17/20 [History Last Taken Unknown] Bifidobacterium infantis 4 mg capsule (Align) 4 mg PO DAILY 06/13/20 [History Last Taken Unknown] azelastine 137 mcg (0.1 %) nasal spray aerosol 1 spray intranasal BID 08/26/21 [History Last Taken Unknown] cyanocobalamin (vitamin B-12) 500 mcg tablet,extended release 500 mcg PO DAILY 08/26/21 [History Last Taken Unknown] magnesium oxide 400 mg PO DAILY 08/26/21 [History Last Taken Unknown] triamcinolone acetonide 0.1 % topical cream 1 applic topical DAILY 08/26/21 [History Last Taken Unknown] famotidine 20 mg tablet 20 tab PO DAILY 09/29/21 [History Last Taken Unknown] isavuconazonium sulfate 186 mg capsule (Cresemba) 372 mg PO DAILY 09/29/21 [History Last Taken Unknown] levothyroxine 50 mcg tablet 50 mcg PO DAILY 09/29/21 [History Last Taken Unknown] prednisone 20 mg tablet 20 mg PO BID 09/29/21 [History Last Taken Unknown] Allergy/AdvReac Type Severity Reaction Status Date / Time red dye Allergy Severe rash Verified 09/28/21 23:50 terbinafine [From Lamisil] AdvReac Rash Verified 09/28/21 23:50 Surgical History H/O brain surgery (05/19/21) History of nasal septoplasty Social History (Updated 10/13/21 @ 20:[address] Lucio Quiroga MD) household members: spouse Smoking Status: Never smoker alcohol intake: never substance use type: does not use caffeine: No ROS Constitutional Constitutional: Denies chills, fever(s) or weight gain ENT HEENT: Denies headache(s), nasal congestion or nasal discharge Cardiovascular Cardiovascular: Denies chest pain or palpitations Respiratory/Chest Respiratory/Chest: Denies cough, excessive phlegm production or shortness of breath with exertion Gastrointestinal Gastrointestinal: Denies abdominal pain, nausea or vomiting Genitourinary Genitourinary: Denies dysuria Musculoskeletal Musculoskeletal: Denies joint pain or joint swelling Integumentary Integumentary: Denies rash or wounds Neurologic Neurologic: Denies focal weakness, numbness or tingling Psychiatric Psychiatric: Denies anxiety, auditory hallucinations, depression, homicidal ideation or suicidal ideation Vital Signs Vital Signs Vital Signs: 10/13/21 19:33 Temperature 97.8 F Temperature Source Temporal Pulse Rate 86 Respiratory Rate 16 Blood Pressure 120/75 Blood Pressure Mean 90 Blood Pressure Source Monitor Blood Pressure Position Semi-Fowlers Blood Pressure Location Left Arm Pulse Ox 97 Oxygen Delivery Method Room Air Physical Exam Const alert General Appearance: cooperative HEENT normocephalic HEENT Narrative: Bruising of face. Eyes PERRL and EOMs intact bilaterally Neck supple, no JVD and no carotid bruits Resp normal respiratory effort, normal air movement and clear to auscultation bilaterally Cardio regular rate and regular rhythm GI normal to inspection, nondistended, normoactive bowel sounds, non-tender and non-distended Extremity normal capillary refill General Extremity: Negative for edema Skin no rashes or lesions noted General Skin Exam: no breakdown Psych affect normal Appearance: appropriate Results Lab / Micro Data Result Diagrams: 10/14/21 05:18 10/14/21 05:18 Assessment & Plan Assessment/Plan (1) Debility: (2) Fall: (3) Acute encephalopathy: (4) Intracranial hemorrhage: (5) Intraventricular hemorrhage: (6) Benign prostate hyperplasia: (7) Obstructive sleep apnea: (8) Hypertension: (9) Allergic rhinitis: (10) Vitamin B12 deficiency: (11) Hypomagnesemia: (12) Gastroesophageal reflux disease: (13) Hypothyroidism: (14) 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 Debility - PT/OT. Pain - Tylenol 650mg q4h prn pain (1-10). Bowel - Miralax 17gm daily. Adult immunization - Administer pneumonia vaccine, covid19 vaccine, flu vaccine as appropriate. DVT prophylaxis - Hold, recent brain bleed. Neuropathic pain - Elavil 10mg qhs. Allergic rhinitis - Azelastine 1 spray nasal bid. Pulmonary aspergillosis - Cresemba 372mg daily. BPH - Doxazosin 2mg daily. GERD - Famotidine 20mg daily. Hypothyroidism - Levothyroxine 50mcg daily. Insomnia - Melatonin 9mg qhs prn. Hypertension - Metoprolol 25mg bid. Melanoma with brain mets - Prednisone 10mg bidcm. Vitamin D deficiency- D3 125mcg daily. Vitamin B12 deficiency - B12 1000mcg daily. Hypomagnesemia - Magnesium chloride 128mg daily.
[2021-10-13] MEDS: Doxazosin 1 MG Tablet 2 MG PO (22:27)
[2021-10-13 22:28] VITALS: BP 120/75; PULSE 86
[2021-10-13] MEDS: Amitriptyline 10 MG Tablet PO (22:28)
[2021-10-13] MEDS: Metoprolol Tartrate 25 MG Tablet PO (22:28)
[2021-10-13] MEDS: predniSONE 10 MG Tablet PO (22:28)
[2021-10-14 05:30] LABS: Absolute Lymphocyte Count 0.71 X10^3/uL (0.83-4.51); Absolute Neutrophil Count 8.2 X10^3/uL (2.0-7.7); Basophil# 0.04 X10^3/uL; Basophil% 0.4 % (0-1); Hematocrit 36.1 % (40-54); Hemoglobin 12.1 g/dL (13.0-16.5); Lymphocyte # 0.71 X10^3/ul (0.83-4.51); Lymphocyte % 7.1 % (19-41); Mean Corp Hgb Conc 33.5 g/dL (32-36); Mean Corpuscular Hgb 32.7 pg (27.0-32.0); Mean Corpuscular Volume 97.6 fL (80-94); Mean Platelet Vol. 10.4 fl (6.2-12.0); Monocyte# 0.57 X10^3/uL; Monocyte% 5.7 % (0-10); NRBC Flagged by Analyzer 0 % (0-5); Neutrophil % 82.5 % (47-70); Platelet Count 108 K/mm3 (150-450); RBC Distribution Width CV 15.5 % (11.6-14.6); RBC Distribution Width SD 54.7 fl (35.1-43.9)
[2021-10-14 05:35] VITALS: BP 145/67; PULSE 67
[2021-10-14] MEDS: Metoprolol Tartrate 25 MG Tablet PO ×2 (05:35→16:55)
[2021-10-14] MEDS: Polyethylene Glycol 3350 17 GM PACKET PO (05:35)
[2021-10-14] MEDS: Levothyroxine 50 MCG Tablet PO (05:35)
[2021-10-14] MEDS: Famotidine 20 MG Tablet PO (05:35)
[2021-10-14] MEDS: Magnesium Chloride 64 MG Delay Rel.Tablet 128 MG PO (05:35)
[2021-10-14] MEDS: Azelastine HCl NASAL.SRY 1 SPRAY NASAL (05:36)
[2021-10-14] MEDS: Cholecalciferol (Vit D3) 125 MCG CAPSULE (5,000 UNITS) PO (05:36)
[2021-10-14 05:57] LABS: Anion Gap 4 (5-15); BUN 33 mg/dL (7-18); BUN/Creat Ratio 38.1 RATIO (10-20); Calcium,Total 8.4 mg/dL (8.5-10.1); Chloride 109 mmol/L (98-107); Creatinine, Serum 0.87 mg/dL (0.70-1.30); EST Glomerular Filtration Rate 90 mL/min (>60); Est Glom Filt Rate - Afr Amer 109 mL/min (>60); Estimated Creatinine Clearance 67.59 ml/min; Glucose 156 mg/dL (74-106); Potassium 4.3 mmol/L (3.5-5.1); Sodium Level 140 mmol/L (136-145)
--- NOTE | 2021-10-14 06:37 | NURSING ---
Patient in room at beginning of shift with present. Pleasant and cooperative with care. Allowed to answer most of questions. Skin sweep done. Meds taken without difficulty. No c/o pain this shift.
--- NOTE | 2021-10-14 07:11 | PCM.PN.DRR ---
TCU RX Drug Regimen Review Subjective: TCU Admission. 81 YOM presented to ER with confusion. Resident had a fall that day and recently had a melanoma removed from his skull. Taking an antifungal for pulmonary aspergillus. Transferred to [facility], discharged, then readmitted days later for intracranial hemorrhage. Neurosurgery recommended conservative treatment. Admitted to TCU with debility for strengthening and rehabilitation. Objective: Allergies red dye Allergy (Severe, Verified 09/28/21 23:50) rash terbinafine [From Lamisil] Adverse Reaction (Verified 09/28/21 23:50) Rash Current Medications Generic Name Dose Route Start Last Admin Trade Name Freq PRN Reason Stop Dose Admin Acetaminophen 650 mg 10/13/21 20:44 Acetaminophen 325 Mg Tablet PO Q4H PRN PRN Pain 1-10 or Fever Amitriptyline HCl 10 mg 10/13/21 22:00 10/13/21 22:28 Amitriptyline 10 Mg Tablet PO 10 mg QHS BEKAH Administration Azelastine HCl 1 spray 10/14/21 06:00 10/14/21 05:36 Azelastine Hcl Nasal.Sry NASAL 1 spray BID BEKAH Administration Cholecalciferol 125 mcg 10/14/21 06:00 10/14/21 05:36 Cholecalciferol (Vit D3) 125 Mcg Capsule (5,000 Units) PO 125 mcg DAILY BEKAH Administration Cyanocobalamin 1,000 mcg 10/14/21 08:00 Cyanocobalamin 500 Mcg Tablet PO BREAKFAST BEKAH Doxazosin Mesylate 2 mg 10/13/21 22:00 10/13/21 22:27 Doxazosin 1 Mg Tablet PO 2 mg QHS BEKAH Administration Famotidine 20 mg 10/14/21 06:00 10/14/21 05:35 Famotidine 20 Mg Tablet PO 20 mg DAILY BEKAH Administration Lactobacillus Acidophilus 1 tablet 10/14/21 06:00 10/14/21 05:35 Lactobacillus Acidophilus PO 1 tablet DAILY BEKAH Administration Levothyroxine Sodium 50 mcg 10/14/21 06:00 10/14/21 05:35 Levothyroxine 50 Mcg Tablet PO 50 mcg DAILY@0600 BEKAH Administration Magnesium Chloride 128 mg 10/14/21 06:00 10/14/21 05:35 Magnesium Chloride 64 Mg Delay Rel.Tablet PO 128 mg DAILY BEKAH Administration Melatonin 9 mg 10/13/21 20:45 Melatonin 3 Mg Tablet PO QHS PRN INSOMNIA Metoprolol Tartrate 25 mg 10/13/21 21:15 10/14/21 05:35 Metoprolol Tartrate 25 Mg Tablet PO 25 mg BID BEKAH Administration Polyethylene Glycol 17 gm 10/14/21 06:00 10/14/21 05:35 Polyethylene Glycol 3350 17 Gm Packet PO 17 gm DAILY BEKAH Administration Prednisone 10 mg 10/13/21 20:58 10/13/21 22:28 Prednisone 10 Mg Tablet PO 10 mg BIDCM BEKAH Administration Tuberculin PPD 0.1 ml 10/14/21 10:00 Tuberculin,Purif.Prot.Deriv. 50 Tu/Ml Vial ID 10/14/21 10:01 X1 ONE Tuberculin PPD 0.1 ml 10/21/21 10:00 Tuberculin,Purif.Prot.Deriv. 50 Tu/Ml Vial ID 10/21/21 10:01 X1 ONE Problem List (Last Reviewed 10/13/21 @ 20:[address] 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 (Acute) Hypothyroidism (Acute) Gastroesophageal reflux disease (Acute) Hypomagnesemia (Acute) Vitamin B12 deficiency (Acute) Allergic rhinitis (Acute) Hypertension (Chronic) Obstructive sleep apnea (Acute) Benign prostate hyperplasia (Acute) Intraventricular hemorrhage (Acute) Intracranial hemorrhage (Acute) Acute encephalopathy (Acute) Fall (Acute) Debility (Acute) Vital Signs Temp Pulse Resp BP Pulse Ox O2 Del Method 97.8 F 67 16 145/67 H 97 Room Air 10/13/21 19:33 10/14/21 05:35 10/13/21 20:15 10/14/21 05:35 10/13/21 20:15 10/13/21 20:15 Oxygen Delivery Method Room Air Weight: 78.018 kg Body Mass Index (BMI) 24.6 Sodium 140 mmol/L (136-145) 10/14/21 05:18 Potassium 4.3 mmol/L (3.5-5.1) 10/14/21 05:18 Chloride 109 mmol/L (98-107) H 10/14/21 05:18 Carbon Dioxide 27.0 mmol/L (21.0-32.0) 10/14/21 05:18 Anion Gap 4 (5-15) L 10/14/21 05:18 BUN 33 mg/dL (7-18) H 10/14/21 05:18 Creatinine 0.87 mg/dL (0.70-1.30) 10/14/21 05:18 Est GFR (MDRD) Af Amer 109 mL/min (>60) 10/14/21 05:18 Est GFR (MDRD) Non-Af 90 mL/min (>60) 10/14/21 05:18 BUN/Creatinine Ratio 38.1 RATIO (10-20) H 10/14/21 05:18 Glucose 156 mg/dL (74-106) H 10/14/21 05:18 Assessment/Plan: 1. Pain: acetaminophen 650mg PO Q4H PRN pain 1-10 and oxycodone 2.5mg PO Q4H PRN pain 4-10. Resident has not required a dose of acetaminophen or oxycodone. Please continue to monitor for pain and PRN usage. 2. Bowel: Miralax 17gm PO daily. Please continue to monitor for constipation. Resident has not had a documented bowel movement yet. 3. Pulmonary aspergillosis: Cresemba 186mg PO daily. Please continue to monitor for S/S of infection, AST/ALT (last 08/14/21), potassium, magnesium, sodium (last 140mmol/L), GI side effects, edema and chest pain. 4. BPH: doxazosin 2mg PO QHS. Please continue to monitor for S/S of BPH, hypotension and syncope (BEERs criteria medication). 5. GERD: famotidine 20mg PO daily. Please continue to monitor for S/S of GERD and renal function. 6. Hypertension: metoprolol tartrate 25mg PO BID. Please continue to monitor BP (last 145/67) and HR (last 67). 7. Melanoma with brain mets: prednisone 10mg PO BIDCM. Please continue to monitor blood glucose (last 156mg/dL), S/S of infection and swelling. 8. Hypothyroidism: levothyroxine 50mcg PO daily. Please consider ordering a TSH now and then annually as clinically appropriate. Last TSH from 05/17/20. Thanks. Please continue to monitor for S/S of hypo/hyperthyroidism. 9. Allergic rhinitis: azelastine 1 spray nasal BID. Please continue to monitor for S/S of allergic rhinitis. 10. Insomnia: melatonin 9mg PO QHS PRN insomnia. Resident has not required a dose. Please continue to monitor for insomnia and PRN usage. 11. Hypomagnesemia: magnesium chloride 128mg PO daily. Please consider ordering a magnesium level. Resident does not have one in the chart. Thanks. 12. Vitamin B12/D deficiencies/wellness: cyanocobalamin 1000mcg PO breakfast, cholecalciferol 125mcg PO daily and lactobacillus 1T PO daily. Please consider ordering vitamin B12 and D levels now and then annually as clinically appropriate. Resident does not have either level int the chart. Thanks. Assessment/Plan for indications treated with psychotropic medications: 1. Neuropathic pain: amitriptyline 10mg PO QHS. Resident is using for neuropathic pain. GDR not appropriate. Please continue to monitor for anticholinergic side effects (BEERs criteria), delirium (BEERs criteria), falls (resident presented with a fall, BEERs criteria medication) and suicidal ideation (black box warning). Medical chart and medication regimen reviewed. The following medication irregularities or issues were identified: *1. Levothyroxine 50mcg PO daily. Please consider ordering a TSH now and then annually as clinically appropriate. Last TSH from 05/17/20. Thanks. *2. Magnesium chloride 128mg PO daily. Please consider ordering a magnesium level. Resident does not have one in the chart. Thanks. *3. Cyanocobalamin 1000mcg PO breakfast and cholecalciferol 125mcg PO daily. Please consider ordering vitamin B12 and D levels now and then annually as clinically appropriate. Resident does not have either level int the chart. Date of Note:: 10/14/21
[2021-10-14] MEDS: predniSONE 10 MG Tablet PO ×2 (07:34→16:55)
[2021-10-14] MEDS: Cyanocobalamin 500 MCG Tablet 1000 MCG PO (07:34)
--- NOTE | 2021-10-14 10:33 | NURSING ---
R' SPOKE WITH ON PHONE. AWARE NEEDS TO BRING IN CRESEM[facility] MEDICATION AND HOME CPAP.
[2021-10-14] MEDS: Tuberculin,Purif.prot.deriv. 50 TU/ML Vial 0.1 ML ID (11:48)
--- NOTE | 2021-10-14 14:19 | NURSING ---
SPOKE WITH Emmie' IN PERSON. WENT OVER ALL APPOINTMENTS THRU NOVEMBER. SHE WILL TRANSPORT Emmie' TO [facility].
[2021-10-14 15:20] VITALS: BP 127/80; PULSE 80; RESP 20; TEMP 36.6; O2SAT 97
--- NOTE | 2021-10-14 16:44 | CASEMGMT ---
Social Work Met with patient to complete initial assessment. Introduced self and role. Machine Shop Lead Man from pt's muslim, Barron Talley, was visiting pt, but ended the conversation. present as well. Pt granted permission for SW to complete assessment with present. Verified contacts. Explained [employer] insurance with NRD 10/15 and continued stay is not guaranteed. Explained in depth the insurance is looking for significant progress from 'update' to 'update'; this a short term rehab stay; and insurance can still issue DC date if pt has not returned to baseline or is safe to DC home. Offered there are appeal rights when insurance does issue DC date that SW will explain at that time. Explained if pt needs additional care or time to heal, pt can transfer to SNF at an out of pocket cost with part B therapies. repeated the information and expressed understanding. Discussed code status and MOLST form. Pt confirms full code. MOLST communicated to , placed in chart. The goal is for pt to return home with assisting. SW explained pt/ can ask for updates from any staff member at any time; the Dr's hours on the unit; care plan meeting. Provided SW contact information to . expressed appreciation for the lactation coordinator in assisting pt/ with admission to TCU. SW to continue to follow. YASIR Chaparro WIRE BENDER
[2021-10-14 16:55] VITALS: PULSE 80
[2021-10-14 20:25] VITALS: BP 112/67; PULSE 71
[2021-10-14] MEDS: Amitriptyline 10 MG Tablet PO (20:27)
[2021-10-14] MEDS: Doxazosin 1 MG Tablet 2 MG PO (20:27)
[2021-10-15 06:25] VITALS: BP 130/75; PULSE 64
[2021-10-15] MEDS: Polyethylene Glycol 3350 17 GM PACKET PO (06:26)
[2021-10-15] MEDS: Famotidine 20 MG Tablet PO (06:26)
[2021-10-15] MEDS: Levothyroxine 50 MCG Tablet PO (06:26)
[2021-10-15] MEDS: Cholecalciferol (Vit D3) 125 MCG CAPSULE (5,000 UNITS) PO (06:26)
[2021-10-15 06:27] VITALS: PULSE 64
[2021-10-15] MEDS: Azelastine HCl NASAL.SRY 1 SPRAY NASAL (06:27)
[2021-10-15] MEDS: Magnesium Chloride 64 MG Delay Rel.Tablet 128 MG PO (06:27)
[2021-10-15] MEDS: Metoprolol Tartrate 25 MG Tablet PO ×2 (06:27→18:41)
[2021-10-15] MEDS: Cyanocobalamin 500 MCG Tablet 1000 MCG PO (08:40)
[2021-10-15] MEDS: predniSONE 10 MG Tablet PO ×2 (08:40→18:41)
[2021-10-15 18:29] VITALS: BP 124/71; PULSE 110; RESP 16; TEMP 36.8; O2SAT 94
[2021-10-15 18:41] VITALS: PULSE 110
[2021-10-15 19:45] VITALS: PULSE 104; RESP 16; O2SAT 97
[2021-10-15] MEDS: Doxazosin 1 MG Tablet 2 MG PO (20:50)
[2021-10-15] MEDS: Amitriptyline 10 MG Tablet PO (20:50)
[2021-10-15 20:51] VITALS: BP 121/76; PULSE 104
--- NOTE | 2021-10-15 22:07 | NURSING ---
Patient came back from Dr. Borjas's office w/ new written orders. Orders entered, CMP x2 weeks then regular weekly labs to continue. Prednisone changed to 10mg/day.
[2021-10-16 05:30] VITALS: BP 155/83; PULSE 64
[2021-10-16 05:32] VITALS: PULSE 64
[2021-10-16] MEDS: Cholecalciferol (Vit D3) 125 MCG CAPSULE (5,000 UNITS) PO (05:32)
[2021-10-16] MEDS: Levothyroxine 50 MCG Tablet PO (05:32)
[2021-10-16] MEDS: Famotidine 20 MG Tablet PO (05:32)
[2021-10-16] MEDS: Metoprolol Tartrate 25 MG Tablet PO ×2 (05:32→18:05)
[2021-10-16] MEDS: Magnesium Chloride 64 MG Delay Rel.Tablet 128 MG PO (05:32)
[2021-10-16] MEDS: Polyethylene Glycol 3350 17 GM PACKET PO (05:33)
[2021-10-16] MEDS: predniSONE 10 MG Tablet PO (07:56)
[2021-10-16] MEDS: Cyanocobalamin 500 MCG Tablet 1000 MCG PO (07:56)
[2021-10-16] MEDS: oxyCODONE 5 MG Tablet 2.5 MG PO (12:58)
[2021-10-16 16:00] VITALS: BP 114/74; PULSE 83; RESP 18; TEMP 36.5; O2SAT 94
[2021-10-16 18:05] VITALS: PULSE 83
[2021-10-16] MEDS: Doxazosin 1 MG Tablet 2 MG PO (21:05)
[2021-10-16] MEDS: Amitriptyline 10 MG Tablet PO (21:05)
[2021-10-17] MEDS: oxyCODONE 5 MG Tablet 2.5 MG PO (04:01)
[2021-10-17] MEDS: Magnesium Chloride 64 MG Delay Rel.Tablet 128 MG PO (05:18)
[2021-10-17] MEDS: Polyethylene Glycol 3350 17 GM PACKET PO (05:18)
[2021-10-17] MEDS: Famotidine 20 MG Tablet PO (05:19)
[2021-10-17] MEDS: Levothyroxine 50 MCG Tablet PO (05:19)
[2021-10-17] MEDS: Cholecalciferol (Vit D3) 125 MCG CAPSULE (5,000 UNITS) PO (05:19)
[2021-10-17 05:20] VITALS: BP 131/64; PULSE 72
[2021-10-17] MEDS: Azelastine HCl NASAL.SRY 1 SPRAY NASAL (05:20)
[2021-10-17] MEDS: Metoprolol Tartrate 25 MG Tablet PO ×2 (05:20→17:29)
[2021-10-17] MEDS: predniSONE 10 MG Tablet PO (08:16)
[2021-10-17] MEDS: Cyanocobalamin 500 MCG Tablet 1000 MCG PO (08:16)
[2021-10-17 15:42] VITALS: BP 130/76; PULSE 75; RESP 16; TEMP 36.6; O2SAT 96
--- NOTE | 2021-10-17 16:13 | NURSING ---
Notified Dr. Quiroga of pt c/o painful, warm to touch and redness to left elbow. Received order for subcutaneous ultrasound.
[2021-10-17 17:29] VITALS: BP 120/64; PULSE 99
[2021-10-17] MEDS: Doxazosin 1 MG Tablet 2 MG PO (20:45)
[2021-10-17] MEDS: Amitriptyline 10 MG Tablet PO (20:45)
[2021-10-17 21:00] VITALS: PULSE 88; RESP 16; O2SAT 98
--- NOTE | 2021-10-17 21:12 | PCA ---
Patient did not wish to change his clothes before bed and would rather wait until morning to get washed up.
[2021-10-18] MEDS: Polyethylene Glycol 3350 17 GM PACKET PO (05:14)
[2021-10-18 05:15] VITALS: BP 126/65; PULSE 78
[2021-10-18] MEDS: Metoprolol Tartrate 25 MG Tablet PO ×2 (05:15→16:53)
[2021-10-18] MEDS: Levothyroxine 50 MCG Tablet PO (05:15)
[2021-10-18] MEDS: Famotidine 20 MG Tablet PO (05:15)
[2021-10-18] MEDS: Azelastine HCl NASAL.SRY 1 SPRAY NASAL (05:15)
[2021-10-18] MEDS: Cholecalciferol (Vit D3) 125 MCG CAPSULE (5,000 UNITS) PO (05:15)
[2021-10-18] MEDS: Magnesium Chloride 64 MG Delay Rel.Tablet 128 MG PO (05:15)
[2021-10-18] MEDS: Cyanocobalamin 500 MCG Tablet 1000 MCG PO (08:10)
[2021-10-18] MEDS: predniSONE 10 MG Tablet PO (08:10)
[2021-10-18 13:17] VITALS: PULSE 70; RESP 16; O2SAT 94
[2021-10-18 15:21] VITALS: BP 105/64; PULSE 70; RESP 16; TEMP 36.8; O2SAT 94
[2021-10-18 16:53] VITALS: BP 119/78; PULSE 92
[2021-10-18 20:21] VITALS: BP 130/68; PULSE 80
[2021-10-18] MEDS: Doxazosin 1 MG Tablet 2 MG PO (20:22)
[2021-10-18] MEDS: Amitriptyline 10 MG Tablet PO (20:22)
--- NOTE | 2021-10-18 20:35 | NURSING ---
Spouse, Sushma, calls reporting pt got out of bed unassisted sometime between the hours of 2-4:30 pm. Toileted, shaved, and changed clothes by himself, then returned to bed. She is unsure why he did not call for assistance. Questions that he may be nervous about upcoming appointment tomorrow. She questions why he does not have a bed alarm as he did at [facility]. Acknowledges she was informed by other staff that is not current practice on this unit unless circumstances warrant implementing an alarm is approved by the community educator after other measures initially tried and unsuccessful. Informed of hourly rounding per staff and offered to have room camera turned on. She is agreeable to having camera utilized. Has several questions and concerns about upcoming CT scans tomorrow and Tuesday scheduled through [facility]. After further discussion, she plans to contact neurosurgeon's office tomorrow am to speak with a nurse for further direction.
[2021-10-19 04:39] VITALS: BP 136/77; PULSE 76
[2021-10-19] MEDS: Famotidine 20 MG Tablet PO (04:39)
[2021-10-19] MEDS: Metoprolol Tartrate 25 MG Tablet PO ×2 (04:39→17:17)
[2021-10-19] MEDS: Magnesium Chloride 64 MG Delay Rel.Tablet 128 MG PO (04:39)
[2021-10-19] MEDS: Levothyroxine 50 MCG Tablet PO (04:40)
[2021-10-19] MEDS: Polyethylene Glycol 3350 17 GM PACKET PO (04:40)
[2021-10-19] MEDS: Azelastine HCl NASAL.SRY 1 SPRAY NASAL (04:40)
[2021-10-19] MEDS: Cholecalciferol (Vit D3) 125 MCG CAPSULE (5,000 UNITS) PO (04:40)
--- NOTE | 2021-10-19 07:50 | US_ITS ---
STUDY: SUPERFICIAL ULTRASOUND - REDNESS AND WARMTH POSTERIOR LEFT ELBOW. REASON FOR EXAM: Male, 81 years old. Redness and warmth on left elbow TECHNIQUE: A superficial ultrasound was performed with real-time and static faulkner-scale imaging. COMPARISON: None. FINDINGS: Sonographic imaging was obtained. There is evidence of edematous tissue underlying the region of the warmth and erythema. No fluid collection or abscess is seen. US/Ext Non Vasc Limited/Soft Tiss IMPRESSION: Diffuse soft tissue edema without evidence of focal abscess or fluid collection. Electronically Signed: Willam Barkley MD at 9:14 EDT ,
[2021-10-19] MEDS: Cyanocobalamin 500 MCG Tablet 1000 MCG PO (07:55)
[2021-10-19] MEDS: predniSONE 10 MG Tablet PO (07:56)
--- NOTE | 2021-10-19 08:55 | NURSING ---
pt NPO for CT scan of lungs
--- NOTE | 2021-10-19 09:41 | NURSING ---
dr cortez notified of LT elbow report showing soft diffuse tissue swelling, no fluid collection or abscess.
--- NOTE | 2021-10-19 10:42 | NURSING ---
looked at camera and pt not in chair or bed, entered room and pt at sink with walker at side washing hands. arrived, both this nurse and educated pt that he needs to call for assist to prevent injury/safety concerns. pt verbalized understanding but pt continues to not call for assist. will monitor more frequently.
--- NOTE | 2021-10-19 11:15 | NURSING ---
pt took off floor via wc for appt
--- NOTE | 2021-10-19 12:28 | NURSING ---
pt returned from appt via Wc at side
[2021-10-19] MEDS: Psyllium 1 PACKET PO (12:30)
[2021-10-19 14:50] VITALS: BP 110/67; PULSE 107; RESP 16; TEMP 36; O2SAT 97
[2021-10-19 17:17] VITALS: BP 131/85; PULSE 108
--- NOTE | 2021-10-19 19:09 | NURSING ---
requesting alarm at night since pt getting up unassisted. Fatou manager community notified, new order for bed alarm at night only.
[2021-10-19] MEDS: Doxazosin 1 MG Tablet 2 MG PO (20:22)
[2021-10-19] MEDS: Amitriptyline 10 MG Tablet PO (20:23)
[2021-10-19 22:00] VITALS: PULSE 105; RESP 16; O2SAT 95
[2021-10-20] MEDS: Psyllium 1 PACKET PO ×2 (05:56→16:59)
[2021-10-20 05:57] VITALS: BP 107/61; PULSE 85
[2021-10-20] MEDS: Cholecalciferol (Vit D3) 125 MCG CAPSULE (5,000 UNITS) PO (05:57)
[2021-10-20] MEDS: Metoprolol Tartrate 25 MG Tablet PO ×2 (05:57→16:59)
[2021-10-20] MEDS: Magnesium Chloride 64 MG Delay Rel.Tablet 128 MG PO (05:57)
[2021-10-20] MEDS: Famotidine 20 MG Tablet PO (05:57)
[2021-10-20] MEDS: Levothyroxine 50 MCG Tablet PO (05:57)
[2021-10-20] MEDS: Cyanocobalamin 500 MCG Tablet 1000 MCG PO (08:21)
[2021-10-20] MEDS: predniSONE 10 MG Tablet PO (08:21)
--- NOTE | 2021-10-20 15:58 | CASEMGMT ---
Social Work Brief interview for mental status (BIMS) and resident mood assessment (PHQ-9) completed on this day. BIMS score 15. PHQ-9 score . Harriet COOLEY, ROSEANNES
[2021-10-20 16:00] VITALS: BP 123/79; PULSE 138; RESP 16; TEMP 36.2; O2SAT 96
[2021-10-20] MEDS: Azelastine HCl NASAL.SRY 1 SPRAY NASAL (16:56)
[2021-10-20 16:59] VITALS: PULSE 138
[2021-10-20] MEDS: Amitriptyline 10 MG Tablet PO (21:44)
[2021-10-20] MEDS: Doxazosin 1 MG Tablet 2 MG PO (21:44)
[2021-10-20 21:52] VITALS: BP 139/69; PULSE 88; RESP 16
[2021-10-21 05:49] LABS: Absolute Lymphocyte Count 1.04 X10^3/uL (0.83-4.51); Absolute Neutrophil Count 3.9 X10^3/uL (2.0-7.7); Basophil# 0.03 X10^3/uL; Basophil% 0.5 % (0-1); Eosinophil# 0.05 X10^3/uL; Eosinophils% 0.9 % (0-5); Hematocrit 37.4 % (40-54); Hemoglobin 12.4 g/dL (13.0-16.5); Lymphocyte # 1.04 X10^3/ul (0.83-4.51); Lymphocyte % 17.9 % (19-41); Mean Corp Hgb Conc 33.2 g/dL (32-36); Mean Corpuscular Hgb 32.8 pg (27.0-32.0); Mean Corpuscular Volume 98.9 fL (80-94); Mean Platelet Vol. 10.6 fl (6.2-12.0); Monocyte% 8.6 % (0-10); NRBC Flagged by Analyzer 0 % (0-5); Neutrophil # 3.93 X10^3/uL (2.7-7.7); Neutrophil % 67.8 % (47-70); Platelet Count 100 K/mm3 (150-450); RBC Distribution Width CV 16.7 % (11.6-14.6); RBC Distribution Width SD 60.3 fl (35.1-43.9); Red Blood Count 3.78 M/mm3 (4.6-6.2); White Blood Count 5.8 K/mm3 (4.4-11.0)
[2021-10-21 05:53] VITALS: BP 124/75; PULSE 78
[2021-10-21] MEDS: Levothyroxine 50 MCG Tablet PO (05:53)
[2021-10-21] MEDS: Famotidine 20 MG Tablet PO (05:53)
[2021-10-21] MEDS: Metoprolol Tartrate 25 MG Tablet PO ×2 (05:53→17:17)
[2021-10-21] MEDS: Magnesium Chloride 64 MG Delay Rel.Tablet 128 MG PO (05:53)
[2021-10-21] MEDS: Cholecalciferol (Vit D3) 125 MCG CAPSULE (5,000 UNITS) PO (05:53)
[2021-10-21] MEDS: Psyllium 1 PACKET PO ×2 (05:55→17:17)
[2021-10-21 06:20] LABS: ALB/GLOB Ratio 0.9 RATIO (0.9-2.4); AST(SGOT) 23 U/L (15-37); Alanine Aminotransfer ALT/SGPT 75 U/L (16-61); Albumin, Serum 2.6 g/dL (3.2-5.0); Alkaline Phosphatase 86 U/L (45-117); Anion Gap 7 (5-15); BUN 25 mg/dL (7-18); BUN/Creat Ratio 30.2 RATIO (10-20); Calcium,Total 8.3 mg/dL (8.5-10.1); Chloride 108 mmol/L (98-107); Creatinine, Serum 0.83 mg/dL (0.70-1.30); EST Glomerular Filtration Rate 94 mL/min (>60); Est Glom Filt Rate - Afr Amer 114 mL/min (>60); Estimated Creatinine Clearance 70.85 ml/min; Glucose 91 mg/dL (74-106); Potassium 3.9 mmol/L (3.5-5.1); Protein, Total 5.6 g/dL (6.4-8.2); Sodium Level 141 mmol/L (136-145)
[2021-10-21] MEDS: Cyanocobalamin 500 MCG Tablet 1000 MCG PO (08:18)
[2021-10-21] MEDS: predniSONE 10 MG Tablet PO (08:18)
--- NOTE | 2021-10-21 10:55 | CASEMGMT ---
Social Work IDT met with patient and for care plan meeting. Discussed patient's progress in PT/OT/ST/SN. Explained [employer] insurance with NRD 10/23 and continued stay is not guaranteed. Explained if insurance does not approve additional stay, a 3 day notice will be given and there are appeal rights. If pt/ does appeal, the DC plans will still need be in place. Inquired about DC plans. has looked into hiring nonskilled aides at home, Germán REY and has a tour with [facility] on 10/23. Explained pt can remain private pay in TCU for a short period, if needed. still concerned about pt's poor cognition and safety returning home at this time. Provided supportive listening. SW to continue to follow for DC planning. Erin Koenig, REACTOR OPERATOR INSPECTION MACHINE TENDER
[2021-10-21] MEDS: Tuberculin,Purif.prot.deriv. 50 TU/ML Vial 0.1 ML ID (11:48)
[2021-10-21 15:46] VITALS: BP 112/66; PULSE 110; RESP 18; TEMP 36.8; O2SAT 95
--- NOTE | 2021-10-21 16:30 | RAD_ITS ---
EXAM: XR LEFT ELBOW COMPLETE, 3 OR MORE VIEWS CLINICAL INDICATION: Left Elbow Pain TECHNIQUE: Frontal, lateral and oblique views of the left elbow. This report was created using [employer] report generation technology. COMPARISON: None. FINDINGS: BONES/JOINTS: Unremarkable. There is no displacement of the anterior or posterior fat pads. No acute fracture. No subluxation. Normal alignment. Preservation of the joint space. No destructive or sclerotic lesions. SOFT TISSUES: Unremarkable. No soft tissue swelling or gas. No radiopaque foreign body. RAD/Elbow min 3 Views IMPRESSION: Negative left elbow. Electronically Signed: Triston Balderrama MD at 19:15 EDT ,
[2021-10-21 17:17] VITALS: BP 112/66; PULSE 110
[2021-10-21 20:20] VITALS: O2SAT 98
[2021-10-21] MEDS: Amitriptyline 10 MG Tablet PO (20:38)
[2021-10-21] MEDS: Doxazosin 1 MG Tablet 2 MG PO (20:38)
[2021-10-22 06:13] VITALS: BP 117/72; PULSE 80
[2021-10-22] MEDS: Levothyroxine 50 MCG Tablet PO (06:13)
[2021-10-22] MEDS: Metoprolol Tartrate 25 MG Tablet PO ×2 (06:13→16:57)
[2021-10-22] MEDS: Cholecalciferol (Vit D3) 125 MCG CAPSULE (5,000 UNITS) PO (06:13)
[2021-10-22] MEDS: Magnesium Chloride 64 MG Delay Rel.Tablet 128 MG PO (06:13)
[2021-10-22] MEDS: Psyllium 1 PACKET PO ×2 (06:13→16:57)
[2021-10-22] MEDS: Famotidine 20 MG Tablet PO (06:13)
[2021-10-22] MEDS: oxyCODONE 5 MG Tablet 2.5 MG PO (06:35)
[2021-10-22] MEDS: Cyanocobalamin 500 MCG Tablet 1000 MCG PO (08:38)
[2021-10-22] MEDS: predniSONE 10 MG Tablet PO (08:38)
[2021-10-22 16:00] VITALS: BP 90/56; PULSE 76; RESP 14; TEMP 36.8; O2SAT 96
[2021-10-22 16:57] VITALS: BP 113/70; PULSE 94
[2021-10-22] MEDS: Amitriptyline 10 MG Tablet PO (20:22)
[2021-10-22] MEDS: Doxazosin 1 MG Tablet 2 MG PO (20:24)
[2021-10-22 21:00] VITALS: BP 113/60; PULSE 82; RESP 18; O2SAT 93
[2021-10-23 05:18] VITALS: BP 129/78; PULSE 77
[2021-10-23] MEDS: Metoprolol Tartrate 25 MG Tablet PO ×2 (05:18→17:06)
[2021-10-23] MEDS: Cholecalciferol (Vit D3) 125 MCG CAPSULE (5,000 UNITS) PO (05:18)
[2021-10-23] MEDS: Levothyroxine 50 MCG Tablet PO (05:18)
[2021-10-23] MEDS: Famotidine 20 MG Tablet PO (05:18)
[2021-10-23] MEDS: Psyllium 1 PACKET PO ×2 (05:18→17:05)
[2021-10-23] MEDS: Magnesium Chloride 64 MG Delay Rel.Tablet 128 MG PO (05:18)
[2021-10-23] MEDS: oxyCODONE 5 MG Tablet 2.5 MG PO (07:46)
[2021-10-23] MEDS: predniSONE 10 MG Tablet PO (07:46)
[2021-10-23] MEDS: Cyanocobalamin 500 MCG Tablet 1000 MCG PO (07:46)
--- NOTE | 2021-10-23 14:53 | CASEMGMT ---
Addendum entered by Erin Koenig 10/23/21 17:29: Received notification of a NOMNC from insurance at 4:15 pm for LCD 10/25, DC 10/26. Received P2P information and [facility] expedited appeal information. Contacted to notify of LCD. actively walking into unit. presented to SW office. outwardly upset about insurance decision. SW allowed time for to express frustration. Provided active listening and validated feelings. inquired about next steps. SW explained of the two appeal options. declined the P2P options since Dr. Rodriguez is currently covering for Dr. Quiroga and elected the [employer] expedited appeal. also requested to speak with the insurance reviewer to get the reason for determination. SW contacted and spoke with Hawk Abdul RN, CM insurance reviewer. CM was not able to speak with but did provide Drs reason for LCD. SW relayed that information to . contacted [facility] will remaining present in SW office. [facility] provided and confirmed fax number to send medical records request to TCU. Discussed DC plans with . will attempt to tour [facility] over the weekend, but still are unsure of bed availability. concluded that if [facility] SNF can accept, he will DC there, then decide on possible transition to an AL. and pt would like have pt continue outpatient therapy at [facility], but SW unsure if pt can pursue that will in a SNF. SW to inquire to [facility] if that is the place of DC. expressed appreciation for time, assistance and support. Received notification call and fax from [facility] of appeal. Forwarded that information to necessary parties, including [facility] to process request. provided verbal hand-off to ED Kathie ALVAREZ. Updated Breann at [facility] of DC date and 's plan. Breann confirmed the IDT is reviewing pt's information. SW provided ED SW contact information if outcome is given the following day. SW updated IDT. SW to continue to follow. Plan: DC 10/26, pending appeal, to AL or SNF pending acceptance/bed availability Original Note: Social Work presented to SW office to discuss further DC plans. has toured [place] and [facility]. Both ALs do not have rooms available to meet pt's need. [facility] is requesting to review clinicals for SNF stay. agrees to send clinicals. also inquired about [facility] and request to send clinicals. plans to schedule a tour with [facility] as well. SW faxed referral to [facility]. inquired about the outcome of today's insurance review - no outcome determined at this time. SW to continue to follow. Erin Koenig, YASIR PERLAW
[2021-10-23 15:26] VITALS: BP 115/74; PULSE 88; RESP 12; TEMP 36.2; O2SAT 97
[2021-10-23 17:06] VITALS: PULSE 88
[2021-10-23 21:00] VITALS: BP 109/67; PULSE 80; RESP 16
[2021-10-23] MEDS: Doxazosin 1 MG Tablet 2 MG PO (21:30)
[2021-10-23] MEDS: Amitriptyline 10 MG Tablet PO (21:30)
[2021-10-24] MEDS: oxyCODONE 5 MG Tablet 2.5 MG PO (02:50)
[2021-10-24] MEDS: Psyllium 1 PACKET PO ×2 (05:12→16:59)
[2021-10-24 05:13] VITALS: BP 130/67; PULSE 75
[2021-10-24] MEDS: Levothyroxine 50 MCG Tablet PO (05:13)
[2021-10-24] MEDS: Famotidine 20 MG Tablet PO (05:13)
[2021-10-24] MEDS: Cholecalciferol (Vit D3) 125 MCG CAPSULE (5,000 UNITS) PO (05:13)
[2021-10-24] MEDS: Magnesium Chloride 64 MG Delay Rel.Tablet 128 MG PO (05:13)
[2021-10-24] MEDS: Metoprolol Tartrate 25 MG Tablet PO ×2 (05:13→16:57)
[2021-10-24] MEDS: Cyanocobalamin 500 MCG Tablet 1000 MCG PO (07:50)
[2021-10-24] MEDS: predniSONE 10 MG Tablet PO (07:50)
[2021-10-24] MEDS: Menthol/Lanolin/Calamine/Znox 113 GM Tube 1 APPLIC TOPICAL ×2 (12:32→16:56)
--- NOTE | 2021-10-24 15:00 | CASEMGMT ---
Addendum entered by Kathie Chaudhary 10/24/21 18:36: At 6:30pm KIM reviewed [employer] web site. It states that the appeal is under clinical review. KIM called patient's Sushma at [phone]. KIM updated Sushma that the web site [employer] states the case is under clinical review. Sushma voiced optimism that the progress was moving. Sushma inquired if there is a decline of the appeal would there be a 24 hour peer to peer review and if there is Dr. Quiroga is not back till Tuesday so would it be possible to have an extension till Dr. Quiroga comes back. Sushma voiced that the last day of coverage is Tuesday10/25/21. KIM acknowledged that those are good questions but voiced that the best person to ask those questions to is Erin Good and this specification writer asked Sushma to leave a voice mail for Erin to address this and Sushma agreed. KIM gave Sushma Erin's direct phone number. KIM sent email to Erin Good also. Kathie HERNANDEZ Original Note: On 10/23/21 KIM received update from Erin Good regarding patient. Per KIM Khan the has filed an appeal with the insurance company. The is considering [facility] and [facility] for placement. KIM will be available for patient's , Sushma and also check on the update of the appeal on line using [employer]. On this date 10/24/21 KIM received a voice mail message at 10am from Sushma Escobar [phone] inquiring if school social worker had any update regarding the placements or appeal. KIM called Sushma Escobar. Sushma said that she was calling to see if this specification writer had any update inquiring about patient's placement options or appeal. Sushma voiced frustration at the insurance company for cutting patient's stay in TCU. Sushma stated that she is hoping patient can go to [facility] skilled and then look at other levels of care that [facility] offer. Sushma also confirmed she was considering [facility]. Sushma asked if MD Quiroga would be back on Tuesday. KIM explained that this specification writer does not have this information and to inquire with staff. Sushma asked if MD would do peer to peer as I am familiar with that I had to do that in [place]. KIM voiced that it would be a decision that the MD makes regarding a peer to peer. Sushma said that she had checked the [employer] web site a couple of hours earlier and documented that the required documents were received. KIM advised that this is the process and that all the documents were received for review. Sushma voiced that she can not get the documentation as it has to come from the hospital. KIM voiced that the hospital does provide the records for the appeal and the records have been received. KIM will continue to review the [employer] web site to see if there is an status update. If there is any change SW will notify Sushma. Emotional support provided. KIM checked [facility] web site at approximately 12:00pm. No updated information. It stated records received. KIM checked [facility] web site. At 3:00pm the status of the appeal is under clinical review. KIM will continue to monitor Kathie HERNANDEZ
[2021-10-24 15:10] VITALS: BP 134/83; PULSE 105; RESP 14; TEMP 36.6; O2SAT 98
[2021-10-24 16:14] LABS: Bacteria 0 SEEN /hpf (None Seen); Mucous, Urine 0 SEEN /hpf (<or=2+); Red Blood Cells-Urine 0 SEEN /hpf (0-5); Squamous Epithelial Cells - UA 0 SEEN /hpf (0-5); White Blood Cells 0 SEEN /hpf (0-5)
[2021-10-24 16:26] LABS: Color, Urine Yellow (Yellow); Glucose, Dipstick Normal (Normal); Ketone-Dipstick Negative (Negative); Leukocyte Esterase-Dipstick Negative /ul (Negative); Nitrite-Dipstick Negative (Negative); Occult Blood-Urine Negative /ul (Negative); Protein-Dipstick Negative (Negative); Urine Bilirubin Dipstick Negative (Negative); Urine Clarity Clear (Clear); Urine Urobilinogen Normal (Normal); Urine pH 6.5 (5.0 - 8.0)
[2021-10-24 16:57] VITALS: PULSE 103
[2021-10-24 21:40] VITALS: BP 105/69; PULSE 76
[2021-10-24] MEDS: Amitriptyline 10 MG Tablet PO (21:43)
[2021-10-24] MEDS: Doxazosin 1 MG Tablet 2 MG PO (21:43)
[2021-10-25] MEDS: Famotidine 20 MG Tablet PO (06:23)
[2021-10-25] MEDS: Levothyroxine 50 MCG Tablet PO (06:23)
[2021-10-25] MEDS: Cholecalciferol (Vit D3) 125 MCG CAPSULE (5,000 UNITS) PO (06:23)
[2021-10-25] MEDS: Psyllium 1 PACKET PO ×2 (06:23→17:42)
[2021-10-25] MEDS: Magnesium Chloride 64 MG Delay Rel.Tablet 128 MG PO (06:23)
[2021-10-25 06:24] VITALS: BP 138/71; PULSE 83
[2021-10-25] MEDS: Metoprolol Tartrate 25 MG Tablet PO ×2 (06:24→17:42)
[2021-10-25] MEDS: Menthol/Lanolin/Calamine/Znox 113 GM Tube 1 APPLIC TOPICAL ×2 (06:34→17:42)
[2021-10-25] MEDS: Cyanocobalamin 500 MCG Tablet 1000 MCG PO (08:05)
[2021-10-25] MEDS: predniSONE 10 MG Tablet PO (08:05)
--- NOTE | 2021-10-25 12:40 | NURSING ---
pt off unit with for personal TESSIE
[2021-10-25 16:00] VITALS: BP 96/62; PULSE 103; RESP 18; TEMP 36; O2SAT 94
[2021-10-25 17:42] VITALS: PULSE 103
[2021-10-25] MEDS: Senna Tablet 1 TABLET PO (17:42)
[2021-10-25] MEDS: Fluticasone 0.05% 1 SPRAY NASAL.SRY NASAL (20:09)
[2021-10-25 20:16] VITALS: PULSE 85; RESP 16; O2SAT 96
[2021-10-25] MEDS: Doxazosin 1 MG Tablet 2 MG PO (20:23)
[2021-10-25] MEDS: Amitriptyline 10 MG Tablet PO (20:23)
[2021-10-26] MEDS: Menthol/Lanolin/Calamine/Znox 113 GM Tube 1 APPLIC TOPICAL ×2 (05:20→17:39)
[2021-10-26 05:21] VITALS: BP 118/67; PULSE 81
[2021-10-26] MEDS: Metoprolol Tartrate 25 MG Tablet PO ×2 (05:21→17:38)
[2021-10-26] MEDS: Senna Tablet 1 TABLET PO ×2 (05:21→17:38)
[2021-10-26] MEDS: Cholecalciferol (Vit D3) 125 MCG CAPSULE (5,000 UNITS) PO (05:21)
[2021-10-26] MEDS: Magnesium Chloride 64 MG Delay Rel.Tablet 128 MG PO (05:21)
[2021-10-26] MEDS: Psyllium 1 PACKET PO ×2 (05:21→17:38)
[2021-10-26] MEDS: Famotidine 20 MG Tablet PO (05:21)
[2021-10-26] MEDS: Levothyroxine 50 MCG Tablet PO (05:21)
--- NOTE | 2021-10-26 06:40 | NURSING ---
Written communication left for Dr. Rodriguez regarding PVR results x2
[2021-10-26] MEDS: predniSONE 10 MG Tablet PO (07:24)
--- NOTE | 2021-10-26 08:58 | CASEMGMT ---
Addendum entered by Erin Koenig 10/26/21 15:24: Dr. Rodriguez attempted to complete P2P, however, that option is no longer available. The would need to complete a reconsideration appeal through [facility]. [facility] has two larger AL apts available tomorrow for admit or can accept pt in the SNF. [facility] has not provided an availability update at this time. Spoke with to update. does not want to complete reconsideration. is continuing to decide [facility] and [facility]. After much consideration and ongoing conversations between this worker and , would like to transition pt to [facility] SNF, then [facility] AL. does not want to pay privately at [facility] to stay for the night, thus she would like to either transfer pt today or DC pt home then to [facility] tomorrow. SW updated [facility] and the admit process from the community is not a quick timeframe. [facility] can accept pt in SNF today this evening. SW updated - she is agreeable. SW updated [facility] and IDT. Notified [facility] that pt will not be admitting. had spoken to [facility] to coordinate future transfer. expressed great appreciation for assistance. Plan: DC to [facility], nonskilled, private pay, part B therapies 10/26. to transport. PASRR completed. Original Note: Social Work Received outcome from appeal, pt was denied. Per voicemail from received by this worker, spoke with Dr. Rodriguez and . agreed to complete P2P. SW confirmed with Dr. Rodriguez and provided P2P information to complete this date. Received return call from Amanda at [facility]. There are several room changes happening and there is an anticipation of rooms becoming available to potentially accommodate pt. However, unsure of timeframe. Amanda stated she did speak with the over the weekend, so the is aware. Amanda to keep KIM updated. Spoke with to discuss plans moving forward. Explained Dr. Rodriguez will complete P2P. [facility] and [facility] are reviewing pt's clinicals and bed availability for acceptance/denial. If pt loses P2P and chooses not to DC today, private pay will begin today and day of discharge is not a charged day. expressed understanding and will wait to hear outcomes from all options before making final decision. IDT updated. SW to continue to follow. Erin Koenig, EMERGENCY MANAGEMENT SYSTEM DIRECTOR C D STILL OPERATOR
[2021-10-26] MEDS: Cyanocobalamin 500 MCG Tablet 1000 MCG PO (09:11)
[2021-10-26 09:24] VITALS: PULSE 84; RESP 14; O2SAT 97
[2021-10-26 11:08] VITALS: BP 117/60; BP 125/69; BP 97/61; PULSE 74; PULSE 88; PULSE 94
[2021-10-26 13:04] VITALS: BP 125/69; PULSE 84; RESP 16; TEMP 36.7; O2SAT 98
--- NOTE | 2021-10-26 13:15 | NURSING ---
Orthostatic vital signs and PVR obtained. Pt anxious about patient being d/c home. Reassurance offered. Encouraged patient to intake oral fluids due to minimal urine output with no retention.
--- NOTE | 2021-10-26 13:23 | MDS.RN ---
Information for the mds was obtained from review of the clinical record, interview of resident, staff, and direct observation of resident's care.
--- NOTE | 2021-10-26 15:36 | PCM.TXEXTCAR ---
Diet Diet Order/Speech Therapy: 10/14/21 01:44 Diet: Regular - General Food consistency:: Regular Liquid Consistency:: Regular/Thin Is pt able to select menu?: Yes Routine Orders/Code Status Enema Type: Fleetz Enema Frequency: Daily PRN Suppository Type: Dulcolax 10mg Suppository Frequency: Daily PRN O2 Frequency: PRN Keep PO Greater than or Equal to (%): 90 Wound(s) left side of head: Wound Type: Surgical Incision RT SIDE OF HEAD: Wound Type: Surgical Incision left elbow/arm: Wound Type: Red, swollen area Dressing Change: GANG [employer] Therapies Weight Bearing: Full weight bearing Problem/Diagnosis (1) Debility: Status: Acute Code(s): R53.81 - Other malaise (2) Fall: Status: Acute Code(s): W19.XXXA - Unspecified fall, initial encounter (3) Acute encephalopathy: Status: Acute Code(s): G93.40 - Encephalopathy, unspecified (4) Intracranial hemorrhage: Status: Acute Code(s): I62.9 - Nontraumatic intracranial hemorrhage, unspecified (5) Intraventricular hemorrhage: Status: Acute Code(s): I61.5 - Nontraumatic intracerebral hemorrhage, intraventricular (6) Benign prostate hyperplasia: Status: Acute Code(s): N40.0 - Benign prostatic hyperplasia without lower urinary tract symptoms Plan: with urine retention (7) Obstructive sleep apnea: Status: Acute Code(s): G47.33 - Obstructive sleep apnea (adult) (pediatric) (8) Hypertension: Status: Chronic Code(s): I10 - Essential (primary) hypertension (9) Allergic rhinitis: Status: Acute Code(s): J30.9 - Allergic rhinitis, unspecified (10) Vitamin B12 deficiency: Status: Acute Code(s): E53.8 - Deficiency of other specified B group vitamins (11) Hypomagnesemia: Status: Acute Code(s): E83.42 - Hypomagnesemia (12) Gastroesophageal reflux disease: Status: Acute Code(s): K21.9 - Gastro-esophageal reflux disease without esophagitis (13) Hypothyroidism: Status: Acute Code(s): E03.9 - Hypothyroidism, unspecified (14) 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 He is orthostatic and may not tolerate FLomax. Putting in an order for post void residuals and PRN intermittent catheterization. (18) Orthostatic hypotension: Status: Acute Code(s): I95.1 - Orthostatic hypotension Comment: On Cardura and Metoprolol. He is a little dry and hydrating may help some. Doubt he would tolerate Cardura and Flomax and he already has falls so may need to see urology. Plan 1. DC to [place] non-skilled today. Part B therapies. Allergies/Procedures Done in Hospital Allergies red dye Allergy (Severe, Verified 09/28/21 23:50) rash terbinafine [From Lamisil] Adverse Reaction (Verified 09/28/21 23:50) Rash Procedures: None Type of Care/Length of Stay Estimated LOS: Convalescent Care Less Than 30 days Type of Care Needed: Long-Term/Assisted Living Rehab Potential: Fair Prognosis: Fair Additional Orders/Day of Discharge H&P will serve as current which was dated: 10/13/21 Day of Discharge: 10/26/21 Dietary and Speech Recommendations Dietitian Recommendations/Changes: Will continue liberal Regular diet as ordered Will monitor need for ONS pending continued po intake and wt trends. Speech Linguistic Eval Summary: Administered the Brief Cognitive Assessment Tool (BCAT) to formally assess cognition w/ the score and impression below re: The BCAT? Test System is comprised of six unique assessment instruments. The primary and foundational test is the Brief Cognitive Assessment Tool (BCAT?), which is multifactorial. It can be administered in 10-15 minutes by professionals and techs, is sensitive to the full spectrum of cognitive functioning (normal, MCI, dementia), produces separate Memory Factor and Executive Functions Factor scores, and can predict basic and instrumental activities of daily living (ADL, IADL). The BCAT? has also been shown to help predict discharge dispositions, identify those most likely to be readmitted to hospitals shortly after discharge, facilitate level of care determinations, aid in fall prevention programs, and help with non-pharmacological behavior management. Total BCAT? Score: 29 Impression: This BCAT? score indicates significant cognitive impairment or dementia (mild level). This BCAT? total score is suggestive of significant cognitive impairment. Persons with his score usually have difficulties in making new memories, as well as problems in other cognitive areas, especially with executive functions. As for impairment in memory, this should not be confused with the ability to recall events, places, and people from the distant past. When healthcare professionals think about memory capability, they are referring to the prospective ability to make a new memory. Many people with mild or moderate dementia are able to recall facts from the remote past, but have problems remembering recent events and learning new material. Individuals with this BCAT? score may also have problems with executive control functions (ECFs). ECFs can be thought of as our cognitive slurry control tender center. Executive abilities include complex cognitive skills such as judgment, planning, organization, and problem-solving. ECFs have a direct impact on the self-management of instrumental activities of daily living (IADL), such as shopping, laundry, transportation, medication, telephone, housekeeping, and finances. Persons with this BCAT? score often have problems in these areas, which could place them at safety risk if they are living in a situation without some level of direct support. Dementia is a syndrome, not a specific diagnosis. Dementia is caused by a specific disease or diseases. The most common cause of dementia is Alzheimer's disease. However, further evaluation should be done before determining a specific cause. The BCAT? test produces a score that can help stage dementia or significant cognitive dysfunction. It can also help identify individuals with mild versus moderate - severe dementia. BCAT? score of 25 to 33 are suggestive of mild dementia, and scores of 24 and below indicate moderate - severe dementia. You might consider administering the Brief Cognitive Impairment Scale (BCIS?) for scores in the moderate - severe range to get even more information about cognitive and behavioral functioning. The BCIS? is designed for patients with severe cognitive impairment and can be completed interactively on the BCAT? website (www.the[employer]at.com). Total Contextual Memory Factor (CMF) Score: 10 The Contextual Memory Factor (CMF) indicates current verbal memory skills. It is highly predictive of cognitive diagnosis (MCI versus dementia) and instrumental activities of daily living (IADL). It is also sensitive to those who have amnestic MCI (and who do not have dementia). The score range is 0-15. Scores below 12 typically indicate significant memory concerns that can impact everyday living. A score of 14, combined with a total BCAT? score in the MCI range, is often associated with [id number]. When this occurs, a review of executive functions and other cognitive domains may be helpful. Total Executive Control Functions Factor (ECFF) Score: 3 The Executive Control Functions Factor (ECFF) indicates current executive control functions abilities. There is a strong correlation between ECFF and predicting everyday activities of daily living, especially the higher order skills involving judgment, problem-solving, and reasoning. The score range is 0-7. Scores below 5 generally indicate problems in executive control that could interfere with successful independent living. Some people have problems with executive functions but have relatively intact memory skills. When this occurs, the subtype of executive MCI may be indicated. Total Complex Attention Factor (CAF) Score: 8 Complex attention is an essential cognitive domain. It includes immediate, selective, and divided attention skills. It is highly associated with the ability to perform basic and complex activities of daily living. The Complex Attention Factor score (CAF) predicts ADL and IADL abilities and empirically measures the attentional skills necessary for independent functioning. Lower scores are associated with weaker performance, whereas higher scores suggest stronger abilities. Scores of 7-8 are within the normal/adequate range, and persons with these results may demonstrate higher levels of independence. Scores below 7 indicate likely attentional deficits, the need for more supervision or assistance, and higher risk for safety concerns and errors when completing basic or complex functional tasks. Please note that the CAF has a low performance threshold so most people should score in the adequate range. Total Cognitive Task Residential Support Specialist (CTM) Score: 21 The Cognitive Task Residential Support Specialist (CTM) integrates an individual?s performance in three primary cognitive domains: contextual memory, executive control functions, and complex attention. Together, these skills are among the most powerful predictors of shaffer outcomes, including performance of basic and complex activities of daily living. The CTM score informs clinicians and families about impairments that can impact functional performance and highlight each individual?s risk for falls and adverse events at home, rehospitalizations and the need for residential support. The CTM score should be considered as part of a comprehensive assessment and be used to guide treatment interventions that address these underlying skill areas and promote a safe and sustainable transition to the next level of care. The CTM is an important clinical tool that informs the plan of care and should be used to identify persons at higher risk for cognitively related functional deficits. When interpreting the CTM score, it is helpful to recognize what scores indicate normal functioning and what scores indicate higher risk. CTM scores in the 26-30 range are within normal limits. These patients have relatively low risk. CTM scores in the 20-25 range indicate moderate risk. CTM scores below 20 indicate relatively high risk. Follow Up Care Please follow up with your Primary Care Physician in: DR JENSEN AFTER DISCHARGE Please Follow Up With: Geovanny Torres MD Please Follow Up With: Lucien Ruano Please Follow Up With: DR. LONGORIA When: after d/c from TCU Please Follow Up With: Ethel Bob MD Please Follow Up With: Dentist,Rodo When: lab Please Follow Up With: DR. DILEEP [place] Discharge Plan Admission Admit Date/Time: 10/13/21 18:32 Primary Reason for Your Visit: Debility due to fall with intraparenchymal hemorrhage. Attending Provider: Lucio Quiroga Chi Primary Care Provider: Berny Jensen Discharge Orders/Prescriptions Prescriptions: New melatonin 3 mg Tablet 3 mg PO QHS PRN (Reason: Insomnia) Qty: 1 0RF cyanocobalamin (vitamin B-12) 500 mcg Tablet 1,000 mcg PO BREAKFAST Qty: 1 0RF amitriptyline 10 mg Tablet 10 mg PO QHS Qty: 0 0RF oxycodone 5 mg Tablet 2.5 mg PO Q4H PRN PRN (Reason: Pain Score 4-10) 7 Days Qty: 14 0RF Mag 64 64 mg Tablet,Delayed Release (Dr/Ec) 128 mg PO DAILY Qty: 0 0RF menthol-zinc oxide [Calmoseptine] 0.44-20.6 % Ointment 1 applic topical BID Qty: 113 0RF Protocol: *Topical Application Instructions APPLICATION INSTRUCTIONS: To coccyx/buttocks sennosides [Valerie-jama] 8.6 mg Tablet 8.6 mg PO BID Qty: 1 0RF prednisone 10 mg Tablet 10 mg PO DAILYCM Qty: 1 0RF cholecalciferol (vitamin D3) 125 mcg (5,000 unit) Capsule 125 mcg PO DAILY Qty: 1 0RF Daily Fiber (psyllium-aspart) 3 gram Powder In Packet 1 packet PO BID Qty: 54 0RF Continued Align 4 mg capsule 4 mg PO DAILY azelastine 137 mcg (0.1 %) aerosol,spray 1 spray intranasal BID Rx Instructions: administer into each nostril cyanocobalamin (vitamin B-12) 500 mcg tablet extended release 500 mcg PO DAILY magnesium oxide 400 mg magnesium tablet 400 mg PO DAILY doxazosin 2 MG tablet 2 mg PO DAILY metoprolol tartrate 25 MG tablet 25 mg PO BID famotidine 20 mg tablet 20 tab PO DAILY Label Comments: take 1 tablet by mouth once daily levothyroxine 50 mcg Tablet 50 mcg PO DAILY Cresemba 186 mg Capsule 372 mg PO DAILY Rx Instructions: start 12-24 hrs after loading dose; swallow whole; do not crush, chew, open, break, dissolve, or cut Discontinued triamcinolone acetonide 0.1 % cream 1 applic topical DAILY amitriptyline 10 MG tablet 10 mg PO QHS prednisone 20 mg Tablet 20 mg PO BID Referrals / Follow Up: Berny Jensen MD [Primary Care Provider] - Disposition Disposition (needs filled in before D/C Order can be placed): NonSkilled NH/Intermed Care
[2021-10-26 16:04] VITALS: BP 125/69; PULSE 85; RESP 16; TEMP 36.7; O2SAT 98
--- NOTE | 2021-10-26 16:06 | PCM.DC.SUM ---
Providers Date of Admission: 10/13/21 Primary Care Physician: Dr. Berny Tripathi MD Reason For Visit: FALL/BRAIN BLEED Diagnosis Discharge Diagnosis (1) Debility: Status: Acute Code(s): R53.81 - Other malaise (2) Fall: Status: Acute Code(s): W19.XXXA - Unspecified fall, initial encounter (3) Acute encephalopathy: Status: Acute Code(s): G93.40 - Encephalopathy, unspecified (4) Intracranial hemorrhage: Status: Acute Code(s): I62.9 - Nontraumatic intracranial hemorrhage, unspecified (5) Intraventricular hemorrhage: Status: Acute Code(s): I61.5 - Nontraumatic intracerebral hemorrhage, intraventricular (6) Benign prostate hyperplasia: Status: Acute Code(s): N40.0 - Benign prostatic hyperplasia without lower urinary tract symptoms Plan: with urine retention (7) Obstructive sleep apnea: Status: Acute Code(s): G47.33 - Obstructive sleep apnea (adult) (pediatric) (8) Hypertension: Status: Chronic Code(s): I10 - Essential (primary) hypertension (9) Allergic rhinitis: Status: Acute Code(s): J30.9 - Allergic rhinitis, unspecified (10) Vitamin B12 deficiency: Status: Acute Code(s): E53.8 - Deficiency of other specified B group vitamins (11) Hypomagnesemia: Status: Acute Code(s): E83.42 - Hypomagnesemia (12) Gastroesophageal reflux disease: Status: Acute Code(s): K21.9 - Gastro-esophageal reflux disease without esophagitis (13) Hypothyroidism: Status: Acute Code(s): E03.9 - Hypothyroidism, unspecified (14) 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 DC to [place] non-skilled today. Part B therapies. Medications at Discharge Home Medications doxazosin 2 mg tablet 2 mg PO DAILY prostate 10/18/15 metoprolol tartrate 25 mg tablet 25 mg PO BID BP 05/17/20 Bifidobacterium infantis 4 mg capsule (Align) 4 mg PO DAILY probiotic 06/13/20 azelastine 137 mcg (0.1 %) nasal spray aerosol 1 spray intranasal BID nasal spray 08/26/21 cyanocobalamin (vitamin B-12) 500 mcg tablet,extended release 500 mcg PO DAILY vit B12 08/26/21 magnesium oxide 400 mg PO DAILY supplement 08/26/21 famotidine 20 mg tablet 20 tab PO DAILY reflux 09/29/21 isavuconazonium sulfate 186 mg capsule (Cresemba) 372 mg PO DAILY Check with primary doctor 09/29/21 levothyroxine 50 mcg tablet 50 mcg PO DAILY thyroid 09/29/21 amitriptyline 10 mg tablet 10 mg PO QHS #0 tabs 10/26/21 cholecalciferol (vitamin D3) 125 mcg (5,000 unit) capsule 125 mcg PO DAILY #1 cap 10/26/21 cyanocobalamin (vitamin B-12) 500 mcg tablet 1,000 mcg PO BREAKFAST #1 TAB 10/26/21 magnesium chloride 64 mg (magnesium chloride) tablet,delayed release (Mag 64) 128 mg PO DAILY #0 tabs 10/26/21 melatonin 3 mg tablet 3 mg PO QHS PRN Insomnia #1 TAB 10/26/21 menthol 0.44 %-zinc oxide 20.6 % topical ointment (Calmoseptine) 1 applic topical BID #113 grams 10/26/21 oxycodone 5 mg tablet 2.5 mg PO Q4H PRN PRN Pain Score 4-10 7 days #14 tabs 10/26/21 prednisone 10 mg tablet 10 mg PO DAILYCM #1 TAB 10/26/21 psyllium husk (aspartame) 3 gram oral powder packet (Daily Fiber (psyllium-aspartame)) 1 packet PO BID #54 ea 10/26/21 sennosides 8.6 mg tablet (Valerie-jama) 8.6 mg PO BID #1 TAB 10/26/21 Hospital Course Summary of Care Provided Hospital Course: 09/29/2021 PETER WESTFALL, is a 81 Male who presents to [facility] Emergency Department with confusion. Fall today, full body scan negative, recent melanoma removed from skull. Elevated liver enzymes, treated with high dose prednisone. On antifungals for fungal infection. Confused, fell, hit head. Urinalysis negative, Post Void residual 200cc, indwelling dulnap catheter. Transfer to [facility] for trauma. 09/29/2021 Discharged to home, moderate biparietal/scalp swelling hematoma. Neurosurgery recommended no surgical intervention. 10/03/2021 Admit to [facility]. Repeat CT head shows intraparenchymal hemorrhage, no interval changes. PT/OT for acute rehab versus assisted facility. CT abdomen/pelvis to rule out retro peritoneal hematoma. 10/04/2021 Neurosurgery recommends no surgery for intracranial hemorrhage. 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 PT/OT for placement. Stop Tramadol, Stop Tylenol, lower oxycodone to 2.5mg prn. Medical records, incomplete. 10/13/2021 Admit to TCU with debility, here for rehabilitation, strengthening, prior to discharge home with . While on rehab Peter had post void residuals and he is retaining urine at times. He is on Cardura 2 mg at bedtime but, he is still retaining. Orthostatic vital signs were checked on the day of discharge. He is orthostatic. Blood pressure lying down is 125/69 with a heart rate of 74. Sitting the blood pressure is 117/68 with a heart rate of 88 and standing the blood pressure was 97/61 with a heart rate of 94. He does not complain of lightheadedness and he is increasing his water intake since he was told ablout the change in the BP when standing. At this time can not add Flomax or Proscar due to the orthostasis and this may have been the etiology of the fall at admission. We have been intermittently catheterizing for post void residual > 250. He had a UA on 10/24/21 which was negative for UTI. Physically he has improved with therapy. He is moderately independent in his room with the Rollator and he is able to do the TUG in 16.57 seconds. He can ascend/descend 10 steps with 2 handrails at standby assist/supervision. He is independent with eating and supervision/set up for grooming. He is also supervision/set up for bathing and upper body dressing. He requires minimal assistance for lower body dressing and toileting. He is supervision/set up for toilet transfer and standby assist for tub/shower transfer. He has significant cognitive dysfunction and his does not feel comfortable taking him home. He is being discharged to [facility] for part B therapies on 10/26/21. His cognition may continue to improve as we get further away from the fall and the intracerebral bleed but, on the day of DC he was able to follow commands and he has been independent in his room with no falls. He is appropriate and calm. His hemoglobin is low but stable at 12.4. He has been afebrile. Platelets are low but are currently stable at approximately 100. Fluid intake is not the greatest and his BUN is elevated between 25 and 33 but the creatinine prior to discharge is 0.83 and stable. It is actually improving. Prior to leaving he had an irregular heart rhythm and an EKG was obtained. The EKG shows NSR with no ectopy. He may be having intermittent AF and I would recommend a holtor monitor as an OP be obtained. Physical Exam Const alert Constitutional Narrative: He was sitting on the side of the bed in his room and able to maintain balance. He is dressed and knows that he is going to be discharged today. He was appropriate. General Appearance: cooperative HEENT normocephalic HEENT Narrative: Denies cephalgia. Resp normal respiratory effort, normal air movement and clear to auscultation bilaterally Cardio Cardio Narrative: Irreg Irregular rhythm - rate controlled. + sys MM at the apex. no gallop and no rub. EKG about 30-45 minutes later showed NSR at 91. GI normal to inspection, nondistended, normoactive bowel sounds, soft to palpation and non-tender GI Narrative: TElls me that his BM's have been regular. Extremity no calf tenderness General Extremity: Negative for edema Skin Skin Narrative: Bruises are resolving and he has no rashes and no breakdown. Neuro CN's II-XII intact bilaterally and no focal motor deficits Weight / BMI Weight Weight: 173 lb 4.8 oz Body Mass Index (BMI) 24.6 ABG / Lab / Microbiology Data Result Diagrams: 10/21/21 05:21 10/21/21 05:21 Microbiology: Microbiology 10/22/21 10:06 Nasal Secretion SARS-CoV-2 Antigen (Rapid) - Final 10/21/21 09:25 Nasal Secretion SARS-CoV-2 Antigen (Rapid) - Final 10/13/21 22:30 Nasal Secretion SARS-CoV-2 Antigen (Rapid) - Final D/C Instructions Please Follow Up With: Geovanny Torres MD Meaningful Use Info Meaningful Use Diagnoses (Choose all that apply): None applicable Discharge Plan Admission Admit Date/Time: 10/13/21 18:32 Primary Reason for Your Visit: Debility due to fall with intraparenchymal hemorrhage. Attending Provider: Lucio Quiroga Chi Primary Care Provider: Berny Tripathi Discharge Orders/Prescriptions Prescriptions: New melatonin 3 mg Tablet 3 mg PO QHS PRN (Reason: Insomnia) Qty: 1 0RF cyanocobalamin (vitamin B-12) 500 mcg Tablet 1,000 mcg PO BREAKFAST Qty: 1 0RF amitriptyline 10 mg Tablet 10 mg PO QHS Qty: 0 0RF oxycodone 5 mg Tablet 2.5 mg PO Q4H PRN PRN (Reason: Pain Score 4-10) 7 Days Qty: 14 0RF Mag 64 64 mg Tablet,Delayed Release (Dr/Ec) 128 mg PO DAILY Qty: 0 0RF menthol-zinc oxide [Calmoseptine] 0.44-20.6 % Ointment 1 applic topical BID Qty: 113 0RF Protocol: *Topical Application Instructions APPLICATION INSTRUCTIONS: To coccyx/buttocks sennosides [Valerie-jama] 8.6 mg Tablet 8.6 mg PO BID Qty: 1 0RF prednisone 10 mg Tablet 10 mg PO DAILYCM Qty: 1 0RF cholecalciferol (vitamin D3) 125 mcg (5,000 unit) Capsule 125 mcg PO DAILY Qty: 1 0RF Daily Fiber (psyllium-aspart) 3 gram Powder In Packet 1 packet PO BID Qty: 54 0RF Continued Align 4 mg capsule 4 mg PO DAILY azelastine 137 mcg (0.1 %) aerosol,spray 1 spray intranasal BID Rx Instructions: administer into each nostril cyanocobalamin (vitamin B-12) 500 mcg tablet extended release 500 mcg PO DAILY magnesium oxide 400 mg magnesium tablet 400 mg PO DAILY doxazosin 2 MG tablet 2 mg PO DAILY metoprolol tartrate 25 MG tablet 25 mg PO BID famotidine 20 mg tablet 20 tab PO DAILY Label Comments: take 1 tablet by mouth once daily levothyroxine 50 mcg Tablet 50 mcg PO DAILY Cresemba 186 mg Capsule 372 mg PO DAILY Rx Instructions: start 12-24 hrs after loading dose; swallow whole; do not crush, chew, open, break, dissolve, or cut Discontinued triamcinolone acetonide 0.1 % cream 1 applic topical DAILY amitriptyline 10 MG tablet 10 mg PO QHS prednisone 20 mg Tablet 20 mg PO BID Referrals / Follow Up: Berny Tripathi MD [Primary Care Provider] - Disposition Disposition (needs filled in before D/C Order can be placed): NonSkilled NH/Intermed Care Charges/Coding Visit Charges Inpatient E&M: 50589 SNF Disch
--- NOTE | 2021-10-26 16:32 | EKG12_ITS ---
Test Reason : AFIB Blood Pressure : / mmHG Vent. Rate : 091 BPM Atrial Rate : 091 BPM P-R Int : 206 ms QRS Dur : 086 ms QT Int : 340 ms P-R-T Axes : 074 -39 026 degrees QTc Int : 418 ms Sinus rhythm with marked sinus arrhythmia Left axis deviation Abnormal ECG When compared with ECG of 17-MAY-2020 22:12, Incomplete right bundle branch block is no longer Present Confirmed by JAKE CARVER, TATIANA ([id number]), video editor RITA ROSALES ([id number]) on 10/28/2021 12:48:01 PM Referred By: Berny Tripathi Confirmed By:TATIANA JOSEPH MD
[2021-10-26 17:38] VITALS: PULSE 91
--- NOTE | 2021-10-26 18:32 | NURSING ---
Called and gave report to [facility]. Given ok to d/c patient to said facility
--- NOTE | 2021-10-27 10:42 | CASEMGMT ---
Social Work BIMS and PHQ-9 completed for MDS assessment. Erin Koenig, BOILERMAKER'S ASSISTANT PIGGYBACK CLERK
== END 2021-10-26 18:35 | disposition intermediate care facility (04) | DRG 55 ==
PROVIDERS: Internal Medicine; Internal Medicine Hematology & Oncology; Admitting Provider Family Medicine Geriatric Medicine; PCP Internal Medicine; Visit Provider Family Medicine Geriatric Medicine
DX: C79.31 Secondary malignant neoplasm of brain (principal); B44.1 Other pulmonary aspergillosis; C43.4 Malignant melanoma of scalp and neck; N18.30 Chronic kidney disease, stage 3 unspecified; E78.5 Hyperlipidemia, unspecified; K21.9 Gastro-esophageal reflux disease without esophagitis; E53.8 Deficiency of other specified B group vitamins; J30.9 Allergic rhinitis, unspecified; G62.9 Polyneuropathy, unspecified; E03.9 Hypothyroidism, unspecified; I12.9 Hypertensive chronic kidney disease with stage 1 through stage 4 chronic kidney disease, or unspecified chronic kidney disease; G47.33 Obstructive sleep apnea (adult) (pediatric); E55.9 Vitamin D deficiency, unspecified; W19.XXXD Unspecified fall, subsequent encounter; N40.0 Benign prostatic hyperplasia without lower urinary tract symptoms; Z79.899 Other long term (current) drug therapy; Z79.890 Hormone replacement therapy; Z79.52 Long term (current) use of systemic steroids; S00.03XD Contusion of scalp, subsequent encounter
CPT/HCPCS: 36415; 73080; 76882; 80048; 80053; 81001; 85025; 87426; 87811; 92507; 92523; 93005; 97110; 97116; 97162; 97166; 97530; 97535; 97802

== ENCOUNTER → 2021-11-02 | Outpatient (REF) | payer MEDICARE, SELFPAY ==
[2021-11-02 08:54] LABS: Absolute Lymphocyte Count 0.74 X10^3/uL (0.83-4.51); Absolute Neutrophil Count 4.3 X10^3/uL (2.0-7.7); Basophil# 0.03 X10^3/uL; Basophil% 0.5 % (0-1); Eosinophil# 0.06 X10^3/uL; Hematocrit 37.7 % (40-54); Hemoglobin 12.2 g/dL (13.0-16.5); Lymphocyte # 0.74 X10^3/ul (0.83-4.51); Lymphocyte % 12.8 % (19-41); Mean Corp Hgb Conc 32.4 g/dL (32-36); Mean Corpuscular Volume 101.9 fL (80-94); Monocyte# 0.56 X10^3/uL; Monocyte% 9.7 % (0-10); NRBC Flagged by Analyzer 0 % (0-5); Neutrophil # 4.27 X10^3/uL (2.7-7.7); Neutrophil % 73.9 % (47-70); POSITIVE COUNT YES; POSITIVE MORPHOLOGY YES; Platelet Count 92 K/mm3 (150-450); RBC Distribution Width CV 17.5 % (11.6-14.6); RBC Distribution Width SD 65.7 fl (35.1-43.9); White Blood Count 5.8 K/mm3 (4.4-11.0)
[2021-11-02 09:01] LABS: Differential Indicated SCAN CRITERIA MET
[2021-11-02 09:16] LABS: AST(SGOT) 127 U/L (15-37); Alanine Aminotransfer ALT/SGPT 252 U/L (16-61); Albumin, Serum 2.9 g/dL (3.2-5.0); Alkaline Phosphatase 78 U/L (45-117); Anion Gap 6 (5-15); BUN 22 mg/dL (7-18); BUN/Creat Ratio 22.8 RATIO (10-20); Calcium,Total 8.7 mg/dL (8.5-10.1); Chloride 106 mmol/L (98-107); Creatinine, Serum 0.96 mg/dL (0.70-1.30); EST Glomerular Filtration Rate 79 mL/min (>60); Est Glom Filt Rate - Afr Amer 96 mL/min (>60); Globulin 2.8 g/dL (2.2-4.2); Glucose 99 mg/dL (74-106); Potassium 3.8 mmol/L (3.5-5.1); Protein, Total 5.7 g/dL (6.4-8.2); Sodium Level 141 mmol/L (136-145)
== END ==
LOC: OLS.WHLTCC 05:00
PROVIDERS: PCP Internal Medicine; Visit Provider Family Medicine
DX: F09 Unspecified mental disorder due to known physiological condition (principal); B44.1 Other pulmonary aspergillosis; E03.9 Hypothyroidism, unspecified; E53.8 Deficiency of other specified B group vitamins; E55.9 Vitamin D deficiency, unspecified; E83.42 Hypomagnesemia
CPT/HCPCS: 36415; 80053; 85025

== ENCOUNTER → 2021-11-09 | Outpatient (REF) | payer MEDICARE, SELFPAY ==
[2021-11-09 07:25] LABS: Absolute Lymphocyte Count 0.93 X10^3/uL (0.83-4.51); Absolute Neutrophil Count 4.4 X10^3/uL (2.0-7.7); Basophil# 0.02 X10^3/uL; Basophil% 0.3 % (0-1); Eosinophil# 0.07 X10^3/uL; Eosinophils% 1.1 % (0-5); Hematocrit 36.8 % (40-54); Hemoglobin 12.4 g/dL (13.0-16.5); Lymphocyte # 0.93 X10^3/ul (0.83-4.51); Lymphocyte % 15.1 % (19-41); Mean Corp Hgb Conc 33.7 g/dL (32-36); Mean Corpuscular Hgb 34.3 pg (27.0-32.0); Mean Corpuscular Volume 101.7 fL (80-94); Monocyte# 0.63 X10^3/uL; Monocyte% 10.2 % (0-10); NRBC Flagged by Analyzer 0 % (0-5); Neutrophil # 4.39 X10^3/uL (2.7-7.7); Neutrophil % 71.4 % (47-70); POSITIVE MORPHOLOGY YES; Platelet Count 106 K/mm3 (150-450); RBC Distribution Width CV 17.7 % (11.6-14.6); RBC Distribution Width SD 66.2 fl (35.1-43.9); Red Blood Count 3.62 M/mm3 (4.6-6.2); White Blood Count 6.2 K/mm3 (4.4-11.0)
[2021-11-09 07:31] LABS: Differential Indicated SCAN CRITERIA MET
[2021-11-09 07:51] LABS: ALB/GLOB Ratio 1.2 RATIO (0.9-2.4); AST(SGOT) 96 U/L (15-37); Alanine Aminotransfer ALT/SGPT 286 U/L (16-61); Albumin, Serum 3.1 g/dL (3.2-5.0); Alkaline Phosphatase 102 U/L (45-117); Anion Gap 5 (5-15); BUN 19 mg/dL (7-18); BUN/Creat Ratio 20.6 RATIO (10-20); Calcium,Total 8.4 mg/dL (8.5-10.1); Chloride 107 mmol/L (98-107); Creatinine, Serum 0.92 mg/dL (0.70-1.30); EST Glomerular Filtration Rate 84 mL/min (>60); Est Glom Filt Rate - Afr Amer 101 mL/min (>60); Globulin 2.6 g/dL (2.2-4.2); Glucose 90 mg/dL (74-106); Potassium 3.7 mmol/L (3.5-5.1); Protein, Total 5.7 g/dL (6.4-8.2); Sodium Level 141 mmol/L (136-145)
[2021-11-09 07:56] LABS: Anisocytosis 1+; Macrocytosis 1+; Platelet Estimate ADEQUATE (ADEQ)
== END ==
LOC: OLS.WHLTCC 05:00
PROVIDERS: PCP Internal Medicine; Visit Provider Family Medicine
DX: I10 Essential (primary) hypertension (principal); C79.31 Secondary malignant neoplasm of brain; G93.49 Other encephalopathy; F09 Unspecified mental disorder due to known physiological condition; S06.360D Traumatic hemorrhage of cerebrum, unspecified, without loss of consciousness, subsequent encounter
CPT/HCPCS: 36415; 80053; 85025

== ENCOUNTER 2022-01-14 15:00 | Outpatient (RCR) | payer MEDICARE, SELFPAY ==
--- NOTE | 2021-08-05 10:53 | HP.PTEVAL_ITS ---
Patient's Visit Information WINSTON WESTFALL is a 81 year old M referred to Physical Therapy by Dr. Berny Tripathi MD with a diagnosis of Debility. Date of Evaluation: 07/30/21 Physical Therapist: Juancho Larry DPT - Visit Plan Frequency: 2-3x /Week Duration: 4-6 Weeks Plan: Start with glute/quad strengthening. Progress dynamic balance. Add in gym and home exercises to create strengthening programs in both areas for increased carry over. - Subjective Pt. is here today for his initial evaluation with diagnosis of debility. He was down in [place] for the winter and started to experience symptoms of confusion, weakness, tremoring, and weakness. 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 He had surgery to remove and has been progressing since. He was previously using FWW after surgery, but is now using cane for most of his mobility. He denies pain, no double vision, no blurred vision. Pt. arrives with spouse. 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 No falls since surgery. He has not done his exercises at home yet, as they just got back last night from [place]. Pt. is hopeful to improve balance and get back to all recreational activities without limitations. - Objective POSTURE: pt. has slight flexed posture in stance. Pt. has wide GIBSON, but is not using Ad for stability. PALPAITION: No pain with palpation of BLEs. NEURO: Normal sensation in BLEs. Pt. has normal DTR of B patellar and Achilles tendons. Pt. is able to rise on heels and toes without issues. ROM: Pt. has good ROM of lumbar spine and B hips. He does have tight calves and HS, but normal joint ROM. MMT: RLE: ankle 4+/5 throughout; knee: ext 4+/5, flexion 4/5; hip: flexion 4/5, abd 4/5, ext 4/5. LLE: ankle 4+/5 throughout; knee: ext 4+/5, flexion 4/5; hip: flexion 4/5, abd 4/5, ext 4/5. Core strength: poor+. GAIT: Pt. ambulated withou t AD. He did have reduced tempo and step length bilaterally. No lateral sway noted. No Trendelenburg noted. No pain noted. STAIRS: Pt. is able to complete with 1 HR with reciprocal pattern, but slowed tempo, and heavy use of railings. - Balance/Special Test Scores Functional Gait Assessment Score: 22 % Disability: 26.6700 CATSIB Score (Max score 120 seconds): 90 Lower Extremity Functional Score: 40 TUG Test Time Seconds: 15.5 30 Second Chair Rise Test Seconds: 2 6 Minute Walk Test: 675feet with out AD. Patient did well with longer walking. - Goals Goal 1:: LTG: Pt. to be I with balance and LE strengthening for both home and gym exercises. Goal Time Frame: 4-6 Weeks Goal 2:: LTG: Pt. to completed 8 reps with 30sec sit to stand rep test indicating increased BLE functional strength. Goal Time Frame: 4-6 Weeks Goal 3:: LTG: Pt. to complete TUG with time less than 10sec without AD indicating increased functional stability. Goal Time Frame: 4-6 Weeks Goal 4:: LTG: Pt. to complete FGA with score of better than 24/30 indicating increased dynamic balance. Goal Time Frame: 4-6 Weeks Goal 5:: LTG: Pt. to complete 6 MWT with distance of greater than 1000feet indic ating over improved endurance. Goal Time Frame: 4-6 Weeks - Rehabilitation Potential Physical Therapy Diagnosis: Pt. has signs and symptoms consistent with debility and instability with gait. He is recovering from a brain mass surgery, but is doing very well. He is left with some increased weakness, decreased endurance and some light balance issues. Pt. would benefit from PT to address the above limitations progressing back to all functional mobility and recreational activities as previously completed. Rehabilitation Potential: Excellent - Anticipated Interventions Patient/Client Instruction: Educate patient on: Condition, Plan of Care, Risk Factors, Benefits of Fitness Program For the Purpose of:: To facilitate caregiver knowledge, To improve self management, To prevent re-injury, To improve ability to perform tasks related to life management, To improve tolerance to ADL's Therapeutic Exercise to Include: Strength training, Power training, Endurance training, Balance training, Postural training, Flexibilty training, Gait and locomotor training, Dynamic Lumbar Stabilization For the Purpose of:: To decrease pain, To increase ROM, To improve nutrient delivery to tissue, To increase oxygenation perfusion, To improve muscle performance and motor function, To improve performance and independence with ADL's, To decrease level of supervision to perform tasks, To improve ability of physical actions for home/community/work/leisure, To improve gait and locomotor functions, To improve health of tissue, To improve endurance Thank you for the opportunity to evaluate your patient. For Medicare and Medicare HMO plans, please review the plan of care and approve it. It will need to be FAXED BACK to us at [phone] for Medicare purposes. For Medicare only, by signing this I certify the plan of care. Please let me know if there are questions or concerns regarding this plan of care. Physician Signature: Date:
--- NOTE | 2021-09-21 11:10 | HP.PTREVAL_ITS ---
Dr. Berny Tripathi MD, It has been my pleasure to treat [place] over the last 10 visits for Debility. Please see the progress note below for an update on the physical therapy plan of care! Subjective: Pt. reports overall doing better. He reports no pain. No RASMUSSEN. Pt. reports no recent falls. I still feel weaker than I should. Objective/Function: TU.4sec. FGA: . GAIT: Pt. ambulates without AD with good stability. He does occasional deviate from path. Pt. did okay today. He maintain balance throughout. 6 MWT: 991 feet, fatigue noted as limiting factor. STAIRS: Pt completed with reciprocal pattern with 2 HR, but appears to have some functional weakness with pushing up, especially with his L leg. 30 s et to stand rep test: 2 reps without use of UEs, this appears to be harder than it was for him previously. Plan Plan: I am going to recert him for another 2 days per week for 4 weeks. Focus on BLE strengthening, balance training, getting out of chair better with decreased UE use. Balance/Gait/Functional tests - Balance/Special Test Scores Functional Gait Assessment Score: 24 % Disability: 20.0000 CATSIB Score (Max score 120 seconds): 90 Lower Extremity Functional Score: 40 TUG Test Time Seconds: 9.4 Tug Test: <10 sec.=free mobile 30 Second Chair Rise Test Seconds: 2 6 Minute Walk Test: 991 without AD Goals Goal 1:: LTG: Pt. to be I with balance and LE strengthening for both home and gym exercises. Goal Time Frame: 4-6 Weeks Goal Progress: Progressing Goal 2:: LTG: Pt. to completed 8 reps with 30sec sit to stand rep test indicating increased BLE functional strength. Goal Time Frame: 4-6 Weeks Goal Progress: Progressing Goal 3:: LTG: Pt. to complete TUG with time less than 10sec without AD indicating increased functional stability. Goal Time Frame: 4-6 Weeks Goal Progress: Progressing Goal 4:: LTG: Pt. to complete FGA with score of better than 24/30 indicating increased dynamic balance. Goal Time Frame: 4-6 Weeks Goal Progress: Progressing Goal 5:: LTG: Pt. to complete 6 MWT with distance of greater than 1000feet indicating over improved endurance. Goal Time Frame: 4-6 Weeks Goal Progress: Progressing Anticipated Interventions Patient/Client Instruction: Educate patient on: Condition, Plan of Care, Risk Factors, Benefits of Fitness Program For the Purpose of:: To facilitate caregiver knowledge, To improve self management, To prevent re-injury, To improve ability to perform tasks related to life management, To improve tolerance to ADL's Therapeutic Exercise to Include: Strength training, Power training, Endurance training, Balance training, Postural training, Flexibilty training, Gait and locomotor training, Dynamic Lumbar Stabilization For the Purpose of:: To decrease pain, To increase ROM, To improve nutrient delivery to tissue, To increase oxygenation perfusion, To improve muscle performance and motor function, To improve performance and independence with ADL's, To decrease level of supervision to perform tasks, To improve ability of physical actions for home/community/work/leisure, To improve gait and locomotor functions, To improve health of tissue, To improve endurance Please do not hesitate to contact me at [phone] by phone or if you have questions or concerns regarding this new plan of care! Sincerely, Juancho Larry DPT
--- NOTE | 2021-11-16 08:49 | HP.SP.EV_ITS ---
History - History Date of Eval: 11/13/21 Medical Diagnosis (from RX): Other encephalopathy; traumatic hemorrhage; other symbolic dysfunctions Date of Onset of Diagnosis: May 2021 Previous speech therapy: Yes Results: TCU for 2 weeks and 2 weeks at [facility] Other Relevant Medical History/Diagnoses/Surgery: PETER WESTFALL is an 81 year old male who presents to [facility] for a cognitive and voice evaluation. 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 A smaller mass on the left frontal lobe was removed via radiation. Pt accompanied by his , Sushma. 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 Pt seeking outpatient therapy to continue targeting cognitive and voice deficits. Smoking Status: Never smoker Hx Smoking: No Hx Tobacco Use: No Hx Smoking Exposure: No - Pain Is pain an issue with your current prescribed condition?: No Patient Allergies - Allergies Allergies red dye Allergy (Severe, Verified 09/28/21 23:50) rash terbinafine [From Lamisil] Adverse Reaction (Verified 09/28/21 23:50) Rash CLQT - CLQT CLQT Administered: Yes CLQT: Cognitive Linguistic Quick Test (CLQT) is a criterion - referenced as sessment designed for adults between the ages of 18 and 89 with known or suspected neurological dysfuntions. The CLQT is to assess strength and weaknesses in five cognitive domains. Severity ratings are within normal limits, mild, moderate, severe deficits. The subtests are as follows: Date: 11/13/21 - Attention Attention: Mild - Memory Memory: Mild - Executive Functions Executive Functions: WNL - Language Language: Mild - Visuospatial Skills Visuospatial Skills: Mild - Composite Severity Rating Composite Severity Rating: Mild - Clock Drawing Severity Rating Clock Drawing Severity Rating: WNL - CLQT Comments Qualitative Data Pt demonstrating problem solving difficulties when completing the second maze task. Pt also demonstrating difficulty following simple to mod complex directions on the first attempt and often benefited from 2-3 repetitions with models to improve performance. Objective Voice - Date of Diagnosis Date of diagnosis: 05/19/21 Previous Speech Therapy (If yes, describe): Yes Details of therapy: Pt has participated in previous speech therapy to target increase vocal intensity and diaphragmatic breathing to improve the left vocal fold closure d/t subsequent bowing suspected from extubation back in May. reporting Pt's voice is sounding better however not back to normal. Plan - Plan Plan: Will recommend Pt for weekly outpatient speech therapy to address mild cognitive impairment characterized by deficits in short-term memory, word retrieval, attention, problem solving/reasoning, and safety awareness; Pt also demonstrating mild voice impairment. Pt would benefit from training in compensatory strategies for recall and word retrieval, cognitive training to improve cognitive functioning, diaphragmatic breathing, and vocal intensity. Without skilled ST services, the Pt is at risk for decreased independence completing daily living tasks. - Recommendations Treatment Warranted: Yes Treatment Warranted: Cognition, Voice - Progress Prognosis: Good - Frequency Frequency: 2x /Week Additional (Frequency): 60 min sessions Duration: 2 Months - Goal #1-5 Goal #1: Pt will establish volitional control of respiration evidenced by utilization of diaphragmatic breathing to initiate approximation of vocal folds and increased vocal intensity during structured tasks 80% of the time given min verbal cues. Goal #2: Pt will complete basic to mod complex convergent and divergent naming tasks with 85% acc independently across 3 measured opportunities to improve word retrieval. Goal #3: Pt will complete basic to mod complex short-term and working memory tasks (including following directions) with 85% acc independently across 3 measured opportunities. Goal #4: Pt will complete basic to mod complex problem solving/reasoning and safety awareness tasks with 85% acc independently across 3 measured opportunities Goal #5: Pt will complete basic to mod complex sustained, alternating, divided attention tasks with 85% acc independently across 3 measured opportunities. Education - Patient has Indicated that the Following Identified Educational Needs: None The Patient has indicated that they have no educational or learning abilities that may effect their care.: Yes - Patient Instruction Patient Education: Diagnosis, Treatment Plan Person Taught: Patient, Significant Other Teaching Method: Discussion, Demonstration Response to teaching: Return demonstration, Verbalize understanding
--- NOTE | 2021-11-16 08:57 | HP.PTREVAL_ITS ---
Dr. Berny Tripathi MD, It has been my pleasure to treat PETER WESTFALL over the last 14 visits for Debility. Please see the progress note below for an update on the physical therapy plan of care! Subjective: Pt. arrives today for a re check. He had fallen at home and has a slow bleed. He was at the hospital for ~7 days, then [facility] TCU then SNF. He is now living at an [facility]. He is now walking with a rollator. He reports having increased fatigue and increased general weakness, RLE worse than L. He reports having foot drop now. He is having more trouble with walking and just general mobility. No pain noted. Objective/Function: ROM: normal BLEs, tightness in B HS, but not too bad. MMT: LLE: ankle: DF 5/5, PF 5/5, INV 5/5, EVR 5/5; knee: ext 5-/5, flexion 5-/5; hip: flexion 4+/5, abd 4/5, ext 4/5. RLE: ankle: DF 3/5, PF 4+/5, INV 4+/5, EVR 4+/5; knee: ext 4/5, flexion 4/5; hip: flexion 4/5, adb 4-/5, ext 4/5. Core strength- poor. GAIT: Pt. ambulates with rollator with good use, good step length bilaterally. He does have increased flexed posture, able to correct with VC/TCing. GAIT without AD: patient has increased lateral deviation from path, increased flexed posture, decreased arm swing. He does have decreased R ankle Df during swing, but was able to clear his foot throughout gait. STAIRS: Pt. completed with reciprocal pattern with use of 2 HR, marked functional weakness with controlled eccentric lowering. TU.1sec without AD, 21.3sec with rollator. 30 sec sit to stand rep test: 8 with use of UEs, patient unable to complete without use of UEs. FGA: 04/02. Overall Peter has shown a decline in his strength and functional mobility since the last time I saw him. Due to this I think PT is a necessity. I did recommend that he follow up with his GP, he is to next week, for follow up as well. I will send this to his GP as well to keep everything up to date. Plan Plan: Due to his recent fall and subsequent general decline in strength and functional mobility. I would like to see him 2-3 times per week for 6 weeks to work on BLE strengthening, especially his R ankle DF, stability with gait, dynamic balance and endurance to allow for increased safety with all functional mobility. Balance/Gait/Functional tests - Balance/Special Test Scores Functional Gait Assessment Score: 12 % Disability: 60.0000 CATSIB Score (Max score 120 seconds): 90 Lower Extremity Functional Score: 40 TUG Test Time Seconds: 18.1 Tug Test: <20 sec.=mostly independent 30 Second Chair Rise Test Seconds: 8 6 Minute Walk Test: 431feet with use of rollator. He reports increased R ankle soreness, and fatigue as limiting factor with gait. Goals Goal 1:: LTG: Pt. to be I with balance and LE strengthening for both home and gym exercises. Goal Time Frame: 4-6 Weeks Goal Progress: Progressing Goal 2:: LTG: Pt. to completed 8 reps with 30sec sit to stand rep test indicating increased BLE functional strength. Goal Time Frame: 4-6 Weeks Goal Progress: Progressing Goal 3:: LTG: Pt. to complete TUG with time less than 10sec without AD indicating increased functional stability. Goal Time Frame: 4-6 Weeks Goal Progress: Progressing Goal 4:: LTG: Pt. to complete FGA with score of better than 20/30 indicating increased dynamic balance. Goal Time Frame: 4-6 Weeks Goal Progress: Progressing Goal 5:: LTG: Pt. to complete 6 MWT with distance of greater than 750feet indicating over improved endurance. Goal Time Frame: 4-6 Weeks Goal Progress: Progressing Goal 6:: LTG: Pt. to have full R ankle DF strength allowing for reduced risk of tripping Goal Time Frame: 4-6 Weeks Goal Progress: Progressing Anticipated Interventions Patient/Client Instruction: Educate patient on: Condition, Plan of Care, Risk Factors, Benefits of Fitness Program For the Purpose of:: To facilitate caregiver knowledge, To improve self management, To prevent re-injury, To improve ability to perform tasks related to life management, To improve tolerance to ADL's Therapeutic Exercise to Include: Strength training, Power training, Endurance training, Balance training, Postural training, Flexibilty training, Gait and locomotor training, Dynamic Lumbar Stabilization For the Purpose of:: To decrease pain, To increase ROM, To improve nutrient delivery to tissue, To increase oxygenation perfusion, To improve muscle performance and motor function, To improve performance and independence with ADL's, To decrease level of supervision to perform tasks, To improve ability of physical actions for home/community/work/leisure, To improve gait and locomotor functions, To improve health of tissue, To improve endurance Please do not hesitate to contact me at [phone] by phone or Fax: if you have questions or concerns regarding this new plan of care! Sincerely, TOMMY SteinerT
--- NOTE | 2021-12-17 08:58 | HP.SP.REEV ---
History - History Date of Eval: 11/13/21 Medical Diagnosis (from RX): Other encephalopathy; traumatic hemorrhage; other symbolic dysfunctions Date of Onset of Diagnosis: May 2021 Previous speech therapy: Yes Results: TCU for 2 weeks and 2 weeks at [facility] Other Relevant Medical History/Diagnoses/Surgery: PETER WESTFALL is an 81 year old male who presents to [facility] Outpatient Speech Therapy for a cognitive and voice evaluation. 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 A smaller mass on the left frontal lobe was removed via radiation. Pt accompanied by his , Sushma. 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 Pt seeking outpatient therapy to continue targeting cognitive and voice deficits. Smoking Status: Never smoker Hx Smoking: No Hx Tobacco Use: No Hx Smoking Exposure: No - Pain Is pain an issue with your current prescribed condition?: No Patient Allergies - Allergies Allergies red dye Allergy (Severe, Verified 09/28/21 23:50) rash terbinafine [From Lamisil] Adverse Reaction (Verified 09/28/21 23:50) Rash Previous/Current Goals - Goals 1-5 Previous Goal #1: Pt will establish volitional control of respiration evidenced by utilization of diaphragmatic breathing to initiate approximation of vocal folds and increased vocal intensity during structured tasks 80% of the time given min verbal cues. Goal 1 Status: PROGRESSING: Pt's receptive language skills with following directions appears to be impacting his ability to follow directions associated with voice exercise intervention. Pt maintaining one loudness throughout entirety of [id number] crescendo exercise. Pt completed pitch glides in 3/7 opportunities where he benefited from visual of a de paz curve where he was suppose to have low/high pitch. Pt reporting that he visited the ENT in [place] which revealed confirmation re: vocal cord bowing however he reportedly is needing to wait 2-3 months prior to getting checked again - no intervention at this time per Pt. Previous Goal #2: Pt will complete basic to mod complex convergent and divergent naming tasks with 85% acc independently across 3 measured opportunities to improve word retrieval. Goal 2 Status: PROGRESSING: Peter participated in modified semantic feature analysis via describing pictures to therapist to guess with 70% acc independently and benefited from mod verbal questions to probe further detail. Pt completed basic word finding task via identifying synonyms of target clues with 80% acc independently and benefited from MAX cues to improve acc to 100%. Pt demonstrating difficulty determining the common factor between all 10 words (baseball themed) via performing with 0% acc independently and benefited from mod category clues to improve acc to 100%. Previous Goal #3: Pt will complete basic to mod complex short-term and working memory tasks (including following directions) with 85% acc independently across 3 measured opportunities. Goal 3 Status: PROGRESSING: Pt completed immediate memory task via recall of 5 faces of men given min verbal cues to use association strategy to initiate recall with 80% acc independently and did not benefit from recall of the associations he created himself at the beginning. Pt completed short-term recall of the same 5 faces with 20% acc given a 15 min delay - Pt benefiting from reviewing names on original sheet along with name tags to reduce cognitive load of coming up with names to improve acc to 40%. Previous Goal #4: Pt will complete basic to mod complex problem solving/reasoning and safety awareness tasks with 85% acc independently across 3 measured opportunities Goal 4 Status: PROGRESSING: Pt completed basic problem solving/reasoning and safety awareness task via identifying the problem in picture scenes with 66% acc and a solution with 68% acc and benefited from mod-max verbal cues and logical cues to improve acc to 80-90%. Pt completed problem solving/reasoning and sequencing task of ordering 6 step picture cards of daily living tasks with 50% acc independently and benefited from mod logical cues to improve acc to 83%. Pt completed basic problem solving/reasoning and sequencing task via placing 3 words presented in written form in sequential order with 38% acc independently. Task progressing in difficulty to 4 words with Pt completing with 40% acc. Pt benefited from mod-max verbal and logical cues to improve overall acc to 60%. Completed basic deductive reasoning puzzle together with Pt given supervision and min verbal cues throughout with Pt completing with logical reason for choices with 68% of the targets. Previous Goal #5: Pt will complete basic to mod complex sustained, alternating, divided attention tasks with 85% acc independently across 3 measured opportunities. Goal 5 Status: PROGRESSING: Pt completes sustained attention tasks with 70% acc and benefited from min verbal cues to redirect to target task. Pt completes alternating attention tasks with 60 to 88% acc and benefits from min to max visual and logical cues of covering up completed items in order to focus on current item. Plan - Plan Plan: Will recommend Pt to continue weekly outpatient speech therapy to address mild voice impairment and mild cognitive impairment characterized by deficits in poor breath support, bowing vocal cords, short-term memory, word retrieval, attention, problem solving/reasoning, and safety awareness. Pt would benefit from training in compensatory strategies for recall and word retrieval, cognitive training to improve cognitive functioning, diaphragmatic breathing, and vocal intensity. Without skilled ST services, the Pt is at risk for decreased independence completing daily living tasks. - Recommendations Treatment Warranted: Yes Treatment Warranted: Cognition, Voice - Progress Prognosis: Good - Frequency Frequency: 2x /Week Additional (Frequency): 60 min sessions Duration: 2 Months - Goals that are Established Determination:: Goals will be added/modified as deemed necessary and appropriate. Therapy will be discontinued when results of re-evaluation indicate therapy is no longer needed or lack of progress has been documented. - Goal #1-5 Goal #1: Pt will establish volitional control of respiration evidenced by utilization of diaphragmatic breathing to initiate approximation of vocal folds and increased vocal intensity during structured tasks 80% of the time given min verbal cues. Goal #2: Pt will complete basic to mod complex convergent and divergent naming tasks with 85% acc independently across 3 measured opportunities to improve word retrieval. Goal #3: Pt will complete basic to mod complex short-term and working memory tasks (including following directions) with 85% acc independently across 3 measured opportunities. Goal #4: Pt will complete basic to mod complex problem solving/reasoning and safety awareness tasks with 85% acc independently across 3 measured opportunities Goal #5: Pt will complete basic to mod complex sustained, alternating, divided attention tasks with 85% acc independently across 3 measured opportunities. Education - Patient has Indicated that the Following Identified Educational Needs: None The Patient has indicated that they have no educational or learning abilities that may effect their care.: Yes - Patient Instruction Patient Education: Diagnosis, Treatment Plan Person Taught: Patient, Significant Other Teaching Method: Discussion, Demonstration Response to teaching: Return demonstration, Verbalize understanding
== END 2022-01-14 19:00 | disposition home or self-care (01) ==
LOC: PT 15:00
PROVIDERS: PCP Internal Medicine; Referring Provider Internal Medicine; Visit Provider Internal Medicine
DX: R53.81 Other malaise (principal); S06.30AA Unspecified focal traumatic brain injury with loss of consciousness status unknown, initial encounter; X58.XXXA Exposure to other specified factors, initial encounter; R48.8 Other symbolic dysfunctions
CPT/HCPCS: 92507; 97110; 97161; 97164; 97530

== ENCOUNTER 2022-02-13 07:25 | Observation (INO) | payer MEDICARE, SELFPAY ==
[2022-02-13] VITALS (8 sets, daily range): BP systolic 147–160; BP diastolic 73–88; PULSE 18–67; RESP 14–18; TEMP 36.3–36.6; O2SAT 96–98; BMI 25.5; BMI 25.0
--- NOTE | 2022-02-13 07:46 | CT_ITS ---
We are attempting to reach an attending provider to discuss findings. An addendum with communication details will be sent when the communication is complete. STUDY: CT BRAIN WITHOUT CONTRAST REASON FOR EXAM: Male, 81 years old. Confusion, hx brain mass RADIATION DOSAGE (If Supplied By Facility): CTDIvol = ( 44.99 ) mGy, DLP = ( 863.6 ) mGycm TECHNIQUE: Transaxial CT imaging of the brain was performed without administration of intravenous contrast material. Individualized dose optimization techniques were used for this CT. COMPARISON: September 28, 2021, August 16, 2021, August 14, 2021 CT scan head FINDINGS: There is minimal right side craniotomy. There is postoperative change. There is moderate atrophy. There is persistent low attenuation within the right frontal lobe suggesting encephalomalacia. There is a chronic appearing extra-axial postoperative fluid collection without underlying evidence of hemorrhage. There is a persistent hyperdense mass in the left frontal lobe measuring 1.3 x 1.2 cm with slightly deeper appearing hyperdensity that may represent subtle petechial hemorrhage and/or potentially calcification this is similar to the prior study. There is adjacent vasogenic edema. There is no significant shift. There are areas of decreased attenuation within the white matter tracts of the supratentorial brain, consistent with microvascular disease changes. Normal basal ganglia and thalami. Normal brainstem. There is mild cerebellar atrophy. There are no findings of an acute ischemic infarction. The right-sided maxillary mucosal retention cyst. 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 Since September 28, 2021 there is a persistent hyperdense 1.3 x 1.2 cm mass in the left frontal lobe with adjacent edema. There is a similar appearance of slight hyperdensity in the sulci adjacent to this mass with vasogenic edema. This edema is less than the prior study August 14, 2021 and the mass appears more hyperdense and contracted than August 14, 2021. Given the subtle hyperdensity consider possible vascular mass possible adjacent petechial hemorrhage. Electronically Signed: Agata Hurt MD at 9:11 EST ,
--- NOTE | 2022-02-13 07:47 | EKG12_ITS ---
Test Reason : ALT MENTAL SAT Blood Pressure : / mmHG Vent. Rate : 059 BPM Atrial Rate : 059 BPM P-R Int : 226 ms QRS Dur : 094 ms QT Int : 382 ms P-R-T Axes : 022 -38 032 degrees QTc Int : 378 ms Sinus bradycardia with 1st degree A-V block Left axis deviation Incomplete right bundle branch block Abnormal ECG Confirmed by JAKE CARVER, TATIANA ([id number]), makeup editor RITA ROSALES ([id number]) on 02/16/2022 11:02:49 AM Referred By: Confirmed By:TATIANA JOSEPH MD
--- NOTE | 2022-02-13 07:49 | EDS_ITS ---
HPI History of Present Illness Chief Complaint: Confusion Informant: patient and spouse/S.O. Narrative Narrative: brings in patient for increased confusion. This is been going on for weeks. He is getting gamma knife treatment for metastatic melanoma to the brain at [facility]. Earlier in the year he had tumors from his brain removed surgically, some of which was done down in [place] where they were at that time. He has been confused, decreased sleep total, up at night, napping during the day. thinks he is getting maybe 4 or 5 hours total sleep but he dozes off at times so she is not 100% sure, but he is able to stay awake for things like doctors appointments when he needs to. Additionally, and the reason that she brings him in to the ED this morning, is that he has been uncontrollably eating and drinking and it always seems to be sugar-related. He has been drinking off and on all night, and up and down from bed all night urinating, sometimes every 10 minutes or so. seems frustrated about this hence bringing him in today. She states this is not new but it is worse. He is not a diabetic that they know of, but he has been on Decadron 2 mg/day for the past month or so since he started gamma knife treatment, and when they were in [place] and he was on Decadron he was also on insulin which he is not on now, again was not clear to diabetic. 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 metastatic to brain Multiple premature ventricular complexes Nonrheumatic aortic (valve) stenosis Obstructive sleep apnea Obstructive sleep apnea Sinus tachycardia Vitamin B12 deficiency Home Medications doxazosin 2 mg tablet 2 mg PO DAILY prostate 10/18/15 [History Last Taken 08/23/16] metoprolol tartrate 25 mg tablet 25 mg PO BID BP 05/17/20 [History Last Taken Unknown] Bifidobacterium infantis 4 mg capsule (Align) 4 mg PO DAILY probiotic 06/13/20 [History Last Taken Unknown] azelastine 137 mcg (0.1 %) nasal spray aerosol 1 spray intranasal BID nasal spray 08/26/21 [History Last Taken Unknown] cyanocobalamin (vitamin B-12) 500 mcg tablet,extended release 500 mcg PO DAILY vit B12 08/26/21 [History Last Taken Unknown] magnesium oxide 400 mg PO DAILY supplement 08/26/21 [History Last Taken Unknown] famotidine 20 mg tablet 20 tab PO DAILY reflux 09/29/21 [History Last Taken Unknown] isavuconazonium sulfate 186 mg capsule (Cresemba) 372 mg PO DAILY Check with primary doctor 09/29/21 [History Last Taken Unknown] levothyroxine 50 mcg tablet 50 mcg PO DAILY thyroid 09/29/21 [History Last Taken Unknown] amitriptyline 10 mg tablet 10 mg PO QHS #0 tabs 10/26/21 [Rx Last Taken Unknown] cholecalciferol (vitamin D3) 125 mcg (5,000 unit) capsule 125 mcg PO DAILY #1 cap 10/26/21 [Rx Last Taken Unknown] cyanocobalamin (vitamin B-12) 500 mcg tablet 1,000 mcg PO BREAKFAST #1 TAB 10/26/21 [Rx Last Taken Unknown] magnesium chloride 64 mg (magnesium chloride) tablet,delayed release (Mag 64) 128 mg PO DAILY #0 tabs 10/26/21 [Rx Last Taken Unknown] melatonin 3 mg tablet 3 mg PO QHS PRN Insomnia #1 TAB 10/26/21 [Rx Last Taken Unknown] menthol 0.44 %-zinc oxide 20.6 % topical ointment (Calmoseptine) 1 applic topical BID #113 grams 10/26/21 [Rx Last Taken Unknown] oxycodone 5 mg tablet 2.5 mg PO Q4H PRN PRN Pain Score 4-10 7 days #14 tabs 10/26/21 [Rx Last Taken Unknown] prednisone 10 mg tablet 10 mg PO DAILYCM #1 TAB 10/26/21 [Rx Last Taken Unknown] psyllium husk (aspartame) 3 gram oral powder packet (Daily Fiber (psyllium- aspartame)) 1 packet PO BID #54 ea 10/26/21 [Rx Last Taken Unknown] sennosides 8.6 mg tablet (Valerie-jama) 8.6 mg PO BID #1 TAB 10/26/21 [Rx Last Taken Unknown] Allergy/AdvReac Type Severity Reaction Status Date / Time red dye Allergy Severe rash Verified 02/13/22 07:33 terbinafine [From Lamisil] AdvReac Rash Verified 02/13/22 07:33 Surgical History H/O brain surgery (05/19/21) History of nasal septoplasty Social History household members: spouse Smoking Status: Never smoker alcohol intake: never substance use type: does not use caffeine: No ROS ROS ED Constitutional Constitutional ED: Denies chills or fever(s) Eyes Eyes: Denies change in vision or diplopia ENT ENT ED: Denies rhinorrhea or sore throat Cardiovascular Cardiovascular: Denies chest pain or palpitations Respiratory/Chest Respiratory/Chest: Denies cough or dyspnea Gastrointestinal Gastrointestinal: Denies abdominal pain, diarrhea, nausea or vomiting Genitourinary Genitourinary ED: Denies dysuria or hematuria Musculoskeletal Musculoskeletal: Denies back pain or neck pain Integumentary Denies abscess or rash Neurologic Neurologic: Reports as per HPI and confusion; Denies headache(s), paresthesias, seizure-like activity or weakness Psychiatric Psychiatric: Denies anxiety or suicidal thoughts Endocrine Endocrinology: Reports polydipsia, polyphagia and polyuria EXAM Physical Exam Const Vital Signs: 02/13/22 07:26 Temperature 97.3 F L Temperature Source Temporal Pulse Rate 67 Respiratory Rate 14 Blood Pressure 160/84 H Blood Pressure Mean 109 Pulse Ox 98 Oxygen Delivery Method Room Air Positive well nourished and well developed General Appearance ED: well developed and NAD HEENT Reports moist mucous membranes normocephalic and atraumatic Eyes PERRL and EOMs intact bilaterally Neck full ROM and supple Resp normal respiratory effort and clear to auscultation bilaterally Cardio regular rate and regular rhythm Heart Sounds: murmur systolic II/ crescendo-decrescendo left sternal border GI non-tender and non-distended Auscultation: normoactive bowel sounds Palpation: soft Back/Spine no CVA tenderness General Back: other FROM Extremity normal to inspection General Extremety ED: Negative for edema, pulses abnormal or tenderness General Extremity: Negative for edema or pulses abnormal Neuro oriented x3, CN's II-XII intact bilaterally, no sensory deficits noted and gait normal Neuro Narrative: Negative Romberg. Normal [id number] bilaterally. Sensorium / Orientation: awake and alert Motor Exam: strength 5/5 throughout Skin no rashes or lesions noted and no wounds MDM MDM MDM Narrative Medical decision making narrative: Patient's head CT is abnormal, I reviewed and spoke with the radiologist. She states that the findings were there in the summer with his prior CT, but it appears there may be some increased petechial hemorrhage in the mass left frontal compared to before. I had the images sent to [facility] and spoke with the cranial neurosurgeon sexton helper there who reviewed the patient's chart, confirming that he has malignant melanoma to the brain, and that he is a gamma knife patient, and reviewed the current images that we sent to them, comparing them to the scan that he had at his last gamma knife treatment. She confirms that the imaging today shows improved petechial hemorrhage compared with before, and shows that things are starting to collapse internally with regards to the mass. She also confirms that the patient does not require any emergency evaluation or transfer to [facility] at this time based on the scan. To me, he is intact neurologically, and with his urinary frequency, abnormal urine, I suspect his urinalysis is indicative of infection, and this could be causing his increased confusion. The states that she does not have an aide over the weekend, today is Tuesday, and therefore I think the patient will be better served admitting him to the hospital for further treatment. I did obtain blood culture since he is mildly immunocompromised on Decadron, sent a urine culture, and started Rocephin. The rest of his work-up is unremarkable including a 1 view chest x-ray which on my interpretation shows no signs of pneumonia. Plan is for admission to the hospital here. Lab Data Attestation: I reviewed the patient's lab results. Labs: Laboratory Results - last 24 hr 02/13/22 02/13/22 02/13/22 08:15 08:15 08:15 WBC 8.2 RBC 4.35 L Hgb 14.1 Hct 42.6 MCV 97.9 H MCH 32.4 H MCHC 33.1 RDW Std Deviation 46.2 H RDW Coeff of Francis 12.9 Plt Count 102 L MPV 11.1 Immature Gran % (Auto) 4.100 H Neut % (Auto) 78.3 H Lymph % (Auto) 7.8 L Hettinger % (Auto) 9.5 Eos % (Auto) 0.1 Baso % (Auto) 0.2 Absolute Neuts (auto) 6.4 Absolute Lymphs (auto) 0.64 L Nucleated RBC % 0 Sodium 139 Potassium 4.2 Chloride 107 Carbon Dioxide 26.0 Anion Gap 6 BUN 36 H Creatinine 0.89 Estim Creat Clear Calc 66.07 Est GFR (MDRD) Af Amer 105 Est GFR (MDRD) Non-Af 87 BUN/Creatinine Ratio 40.5 H Glucose 85 Calcium 9.0 Total Bilirubin 0.30 AST 10 L ALT 25 Alkaline Phosphatase 46 Ammonia 29.0 Total Protein 6.0 L Albumin 3.1 L Globulin 2.9 Albumin/Globulin Ratio 1.1 Urine Color Urine Clarity Urine pH Ur Specific [place] Urine Protein Urine Glucose (UA) Urine Ketones Urine Occult Blood Urine Nitrite Urine Bilirubin Urine Urobilinogen Ur Leukocyte Esterase Urine RBC Urine WBC Ur Squamous Epith Cells Urine Bacteria Urine Mucus 02/13/22 08:15 WBC RBC Hgb Hct MCV MCH MCHC RDW Std Deviation RDW Coeff of Francis Plt Count MPV Immature Gran % (Auto) Neut % (Auto) Lymph % (Auto) Hettinger % (Auto) Eos % (Auto) Baso % (Auto) Absolute Neuts (auto) Absolute Lymphs (auto) Nucleated RBC % Sodium Potassium Chloride Carbon Dioxide Anion Gap BUN Creatinine Estim Creat Clear Calc Est GFR (MDRD) Af Amer Est GFR (MDRD) Non-Af BUN/Creatinine Ratio Glucose Calcium Total Bilirubin AST ALT Alkaline Phosphatase Ammonia Total Protein Albumin Globulin Albumin/Globulin Ratio Urine Color Yellow Urine Clarity Clear Urine pH 6.5 Ur Specific [place] 1.010 Urine Protein Negative Urine Glucose (UA) Normal Urine Ketones Negative Urine Occult Blood 10 H Urine Nitrite Negative Urine Bilirubin Negative Urine Urobilinogen Normal Ur Leukocyte Esterase 500 H Urine RBC 0 SEEN Urine WBC 25-50 SEEN Ur Squamous Epith Cells 0 SEEN Urine Bacteria 0 SEEN Urine Mucus 0 SEEN Radiography Diagnostic Testing: Clinical Impression(s) from Imaging Studies Brain CT 02/13/22 07:46 IMPRESSION: Stable right frontal encephalomalacia postoperative change status post craniotomy. Since September 28, 2021 there is a persistent hyperdense 1.3 x 1.2 cm mass in the left frontal lobe with adjacent edema. There is a similar appearance of slight hyperdensity in the sulci adjacent to this mass with vasogenic edema. This edema is less than the prior study August 14, 2021 and the mass appears more hyperdense and contracted than August 14, 2021. Given the subtle hyperdensity consider possible vascular mass possible adjacent petechial hemorrhage. Electronically Signed: Agata Hurt MD at 9:11 EST , ADDENDUM: 02/13/22 09 IMPRESSION: Stable right frontal encephalomalacia postoperative change status post craniotomy. Since September 28, 2021 there is a persistent hyperdense 1.3 x 1.2 cm mass in the left frontal lobe with adjacent edema. There is a similar appearance of slight hyperdensity in the sulci adjacent to this mass with vasogenic edema. This edema is less than the prior study August 14, 2021 and the mass appears more hyperdense and contracted than August 14, 2021. Given the subtle hyperdensity consider possible vascular mass possible adjacent petechial hemorrhage. N.B. : The above Results were Read Back by Agata Hurt MD to Dr Kaushal Olivares MD, and understanding confirmed on 02/13/2022 09:19:03 (ET). Electronically Signed: Agata Hurt MD at 9:11 EST , Chest X-Ray 02/13/22 08:40 IMPRESSION: Mild cardiomegaly. Degenerative change thoracic spine. Evidence of old granulomatous disease stable since prior study. No visualized acute focal infiltrate. Electronically Signed: Agata Hurt MD at 9:23 EST , Rhythm Strip Rhythm Strip: Sinus Rhythm Rate: 60 Ectopy: None EKG Initial EKG: Attestation: I personally reviewed and interpreted this EKG as follows: Interpretation: Sinus Rhythm and LAFB Comments: normal EKG Prior EKG tracings: available for review Prior: Unchanged Discharge Plan Dx/Rx/DC Orders Clinical Impression: Urinary tract infection, Debility, Acute encephalopathy, Malignant melanoma metastatic to brain Disposition Disposition: Acute Care [facility]
[2022-02-13] MEDS: 0.9% Normal Saline 1,000 ML 150 ML IV (08:29)
[2022-02-13 08:35] LABS: Bacteria 0 SEEN /hpf (None Seen); Mucous, Urine 0 SEEN /hpf (<or=2+); Red Blood Cells-Urine 0 SEEN /hpf (0-5); Squamous Epithelial Cells - UA 0 SEEN /hpf (0-5)
[2022-02-13 08:36] LABS: Color, Urine Yellow (Yellow); Glucose, Dipstick Normal (Normal); Ketone-Dipstick Negative (Negative); Leukocyte Esterase-Dipstick 500 /ul (Negative); Nitrite-Dipstick Negative (Negative); Occult Blood-Urine 10 /ul (Negative); Protein-Dipstick Negative (Negative); Urine Bilirubin Dipstick Negative (Negative); Urine Clarity Clear (Clear); Urine Urobilinogen Normal (Normal); Urine pH 6.5 (5.0 - 8.0)
[2022-02-13 08:38] LABS: Absolute Lymphocyte Count 0.64 X10^3/uL (0.83-4.51); Absolute Neutrophil Count 6.4 X10^3/uL (2.0-7.7); Basophil# 0.02 X10^3/uL; Basophil% 0.2 % (0-1); Eosinophil# 0.01 X10^3/uL; Eosinophils% 0.1 % (0-5); Hematocrit 42.6 % (40-54); Hemoglobin 14.1 g/dL (13.0-16.5); Lymphocyte # 0.64 X10^3/ul (0.83-4.51); Lymphocyte % 7.8 % (19-41); Mean Corp Hgb Conc 33.1 g/dL (32-36); Mean Corpuscular Hgb 32.4 pg (27.0-32.0); Mean Corpuscular Volume 97.9 fL (80-94); Mean Platelet Vol. 11.1 fl (6.2-12.0); Monocyte# 0.78 X10^3/uL; Monocyte% 9.5 % (0-10); NRBC Flagged by Analyzer 0 % (0-5); Neutrophil # 6.42 X10^3/uL (2.7-7.7); Neutrophil % 78.3 % (47-70); Platelet Count 102 K/mm3 (150-450); RBC Distribution Width CV 12.9 % (11.6-14.6); RBC Distribution Width SD 46.2 fl (35.1-43.9); Red Blood Count 4.35 M/mm3 (4.6-6.2); White Blood Count 8.2 K/mm3 (4.4-11.0)
--- NOTE | 2022-02-13 08:40 | RAD_ITS ---
STUDY: X-RAY CHEST REASON FOR EXAM: Male, 81 years old. Altered MS TECHNIQUE: PA and lateral views of the chest. COMPARISON: September 28, 2021, chest CT FINDINGS: There is a calcification in the right midlung zone measuring 5.3 mm stable since prior study compatible granulomatous disease. There is no demonstrated pleural abnormality. There is mild cardiac enlargement. Normal mediastinum and gardenia. Normal visualized pulmonary arteries. There is atherosclerotic tortuosity of the aortic arch and descending thoracic aorta. There are diffuse degenerative changes of the visualized thoracic spine. Normal visualized ribs, clavicles, and shoulders. There is no demonstrated abnormality of the visualized soft tissue structures of the upper abdomen. RAD/Chest PA and Lateral IMPRESSION: Mild cardiomegaly. Degenerative change thoracic spine. Evidence of old granulomatous disease stable since prior study. No visualized acute focal infiltrate. Electronically Signed: Agata Hurt MD at 9:23 EST ,
[2022-02-13 08:47] LABS: White Blood Cells 25-50 SEEN /hpf (0-5)
[2022-02-13 09:00] LABS: ALB/GLOB Ratio 1.1 RATIO (0.9-2.4); AST(SGOT) 10 U/L (15-37); Alanine Aminotransfer ALT/SGPT 25 U/L (16-61); Albumin, Serum 3.1 g/dL (3.2-5.0); Alkaline Phosphatase 46 U/L (45-117); Anion Gap 6 (5-15); BUN 36 mg/dL (7-18); BUN/Creat Ratio 40.5 RATIO (10-20); Chloride 107 mmol/L (98-107); Creatinine, Serum 0.89 mg/dL (0.70-1.30); EST Glomerular Filtration Rate 87 mL/min (>60); Est Glom Filt Rate - Afr Amer 105 mL/min (>60); Estimated Creatinine Clearance 66.07 ml/min; Globulin 2.9 g/dL (2.2-4.2); Glucose 85 mg/dL (74-106); Potassium 4.2 mmol/L (3.5-5.1); Sodium Level 139 mmol/L (136-145)
--- NOTE | 2022-02-13 09:21 | NURSING ---
CALLED [facility] TRANSFER LINE. MAY OR MAYNOT BE A TRANSFER. NEED NEUROSURGERY
--- NOTE | 2022-02-13 09:36 | NURSING ---
DR CELAYA, NEUROSURGEON AT [facility], FOR DR BIRD
--- NOTE | 2022-02-13 09:44 | NURSING ---
[facility] NEUROSURGEON JUDE ON PHONE FOR DR BIRD
[2022-02-13] MEDS: Ceftriaxone 1 GM/50 ML BAG IV (09:45)
--- NOTE | 2022-02-13 10:08 | NURSING ---
MED SURG TERKARMEN UTI, DEBILITY
--- NOTE | 2022-02-13 12:47 | CASEMGMT ---
Addendum entered by Bertha Mg 02/13/22 14:27: Provided private duty list to pt, left on tray table. not present in room. Original Note: KATHERINE STOVER Assessment: Face to Face with pt for initial transition planning/care coordination assessment. RN JOLANTA introduced self and role at [facility], pt voices understanding and consents to assessment. Pt answers questions and at bedside who mostly answers for pt. Care providers, pharmacy, and demographics verified/updated. Admitting Dx: cystitis, debility PCP:Deuce Specialists:Anthony, ID; [place], onc; Jeramie, pulm; Bruce, neuro onc; Isabel, neuro OR; neurologist in [place] Preferred Pharmacy: [facility] Insurance: [employer] [facility] Prescription Benefit: yes LNOK: Sushma Finkker, Living Arrangements: Pt lives with in a single story house with 2 steps to enter. Pt reports he is mostly I in ADL's. Pt states that pt does need supervision with bathing and toileting tasks. Transportation: Pt transports pt to medical appts. DME/HHC/SNF: Pt has a CPAP, rollator and toilet bars at home. Pt has had HHC in [place] but not in [place]. Pt has a private duty agency from [place] that she hires a couple nights a week. Pt has been in [facility], [facility] and [place] for respite care. Pt states no concerns with going home at time of dc. states she cannot care for pt. States his confusion and being up in the middle of the night is more than she can handle. She states pt is mobile, will await therapy evals. Discussed options of SNF, HHC and private duty. Pt states he can physically move well but has issues with his confusion. She states HHC will not help with someone needing to be there in the middle of the night, which is correct. Pt states that private duty is hard to hire and is expensive. Will provide her with a list of PD agencies. She states she needs to leave and to leave the list in the room. Pt/ states no further concerns/needs. CM to follow. Advised pt to ask CM if any further question/concerns/needs arise, voices understanding. Pt Goal: TBD Plan: TBD Updated SW as well as hospitalist regarding dc plan, will follow therapy. became very upset and stated other hospitals therapy stated pt can return home but does not take anything else into account. She is aware with the insurance, pt would need precertification to go to SNF. She verbalizes understanding.
--- NOTE | 2022-02-13 14:16 | HP.PCM.HOS_ITS ---
HPI - General General Date of Admission: 02/13/22 Date of Service: 02/13/22 Chief Complaint: Lysed weakness, urinary frequency HPI Narrative WINSTON WESTFALL, is a 81 M who presents to the emergency room at [facility] after being brought in by his with complaints of generalized weakness, increased confusion, and frequent urination over the last 1 to 2 days. Patient has a history of metastatic melanoma to the brain and has had gamma knife treatments in the past, he is currently receiving immunotherapy as an outpatient. Patient's admits that the patient has been confused over the last several months since he has had gamma knife treatment, she states that he has been weak over the last 2 days at home and has been getting up frequently in the middle of the night to urinate. She also states that she usually has nursing help at night but this weekend she does not have any nursing help. Labs obtained in the emergency room revealed normal white blood cell count and hemoglobin, patient's chemistry panel was remarkable for BUN of 36, patient's urinalysis was indicative of a urinary tract infection. Patient's chest x-ray showed no evidence of pneumonia, CT scan of the brain revealed a hyperdense 1.3 x 1.2 cm mass in the left frontal lobe with adjacent edema, the edema is less than the prior study in August 2021 and the mass appears more hyperdense and contracted than august of 2021. Patient's brain CT shows a 6 stable right frontal encephalomalacia postoperative changes status postcraniotomy also. The emergency room physician contacted the patient's neurosurgeon who reviewed the films and felt that the overall appearance was improved from previous head CTs. Patient will be placed into observation status for acute cystitis and generalized debility, he will be seen by PT and OT, he will remain on his home medications. 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 Melanoma metastatic to brain Multiple premature ventricular complexes Nonrheumatic aortic (valve) stenosis Obstructive sleep apnea Obstructive sleep apnea Sinus tachycardia Vitamin B12 deficiency Home Medications doxazosin 2 mg tablet 2 mg PO QHS prostate 10/18/15 [History Last Taken 02/12/22] metoprolol tartrate 25 mg tablet 25 mg PO BID BP 05/17/20 [History Last Taken 02/13/22] Bifidobacterium infantis 4 mg capsule (Align) 4 mg PO DAILY probiotic 06/13/20 [History Last Taken 02/13/22] magnesium oxide 400 mg PO DINNER supplement 08/26/21 [History Last Taken 02/12/22] isavuconazonium sulfate 186 mg capsule (Cresemba) 186 mg PO DINNER 09/29/21 [History Last Taken 02/12/22] cyanocobalamin (vitamin B-12) 500 mcg tablet 1,000 mcg PO BREAKFAST #1 TAB 10/26/21 [Rx Last Taken 02/13/22] cholecalciferol (vitamin D3) 125 mcg (5,000 unit) capsule 125 mcg PO DINNER 02/13/22 [History Last Taken 02/12/22] dexamethasone 2 mg tablet 2 mg PO DAILY 02/13/22 [History Last Taken 02/13/22] famotidine 20 mg tablet 20 mg PO DAILY 02/13/22 [History Last Taken 02/13/22] levothyroxine 25 mcg tablet 12.5 mcg PO DAILY 02/13/22 [History Last Taken 02/13/22] menthol 0.44 %-zinc oxide 20.6 % topical ointment (Calmoseptine) 1 applic topical BID PRN EXCORIATION 02/13/22 [History Last Taken Unknown] quetiapine 25 mg tablet 12.5 mg PO QHS 02/13/22 [History Last Taken 02/12/22] Allergy/AdvReac Type Severity Reaction Status Date / Time red dye Allergy Severe rash Verified 02/13/22 07:33 terbinafine [From Lamisil] AdvReac Rash Verified 02/13/22 07:33 Surgical History H/O brain surgery (05/19/21) History of nasal septoplasty Social History household members: spouse Smoking Status: Never smoker alcohol intake: never substance use type: does not use caffeine: No ROS ROS Narrative Complete review of systems was unobtainable due to the patient's cognitive impairment Vital Signs Vital Signs Vital Signs: 02/13/22 07:26 02/13/22 10:29 02/13/22 10:57 Temperature 97.3 F L 97.8 F Temperature Source Temporal Temporal Pulse Rate 67 51 L 51 L Respiratory Rate 14 18 18 Blood Pressure 160/84 H 154/79 H 154/79 H Blood Pressure Mean 109 104 104 Blood Pressure Source Blood Pressure Position Blood Pressure Location Pulse Ox 98 97 97 Oxygen Delivery Method Room Air Room Air Room Air 02/13/22 12:16 Temperature 97.6 F L Temperature Source Oral Pulse Rate 59 L Respiratory Rate 18 Blood Pressure 147/88 H Blood Pressure Mean 107 Blood Pressure Source Monitor Blood Pressure Position Semi-Fowlers Blood Pressure Location Right Arm Pulse Ox 96 Oxygen Delivery Method Room Air Weight Weight: 79 kg Body Mass Index (BMI) 25.0 Physical Exam Const alert Constitutional Narrative: Patient is able to answer some questions appropriately but is unable to carry on a conversation with this examiner at this time, he knows he is in the hospital and he is oriented as to person. HEENT normocephalic, head/scalp atraumatic and hearing grossly normal bilaterally Eyes EOMs intact bilaterally and conjunctivae normal Neck supple and no JVD Resp normal respiratory effort, no retractions, no use of accessory muscles and clear to auscultation bilaterally Cardio regular rate, regular rhythm, S1 normal heart sound, S2 normal heart sound, no murmurs and no rub GI normal to inspection, nondistended, normoactive bowel sounds, soft to palpation, non-tender and non-distended Neuro CN's II-XII intact bilaterally and moves all extremities Sensorium / Orientation: awake, oriented to person and oriented to place Psych Psych Narrative: Patient has flat affect Results Lab / Micro Data Result Diagrams: 02/13/22 08:15 02/13/22 08:15 Labs: Laboratory Results - last 24 hr 02/13/22 08:15: WBC 8.2, RBC 4.35 L, Hgb 14.1, Hct 42.6, MCV 97.9 H, MCH 32.4 H, MCHC 33.1, RDW Std Deviation 46.2 H, RDW Coeff of Francis 12.9, Plt Count 102 L, MPV 11.1, Immature Gran % (Auto) 4.100 H, Neut % (Auto) 78.3 H, Lymph % (Auto) 7.8 L , [place] % (Auto) 9.5, Eos % (Auto) 0.1, Baso % (Auto) 0.2, Absolute Neuts (auto) 6.4, Absolute Lymphs (auto) 0.64 L, Nucleated RBC % 0 02/13/22 08:15: Sodium 139, Potassium 4.2, Chloride 107, Carbon Dioxide 26.0, Anion Gap 6, BUN 36 H, Creatinine 0.89, Estim Creat Clear Calc 66.07, Est GFR (MDRD) Af Amer 105, Est GFR (MDRD) Non-Af 87, BUN/Creatinine Ratio 40.5 H, Glucose 85, Calcium 9.0, Total Bilirubin 0.30, AST 10 L, ALT 25, Alkaline Phosphatase 46, Total Protein 6.0 L, Albumin 3.1 L, Globulin 2.9, Albumin /Globulin Ratio 1.1 02/13/22 08:15: Ammonia 29.0 02/13/22 08:15: Urine Color Yellow, Urine Clarity Clear, Urine pH 6.5, Ur Specific [place] 1.010, Urine Protein Negative, Urine Glucose (UA) Normal, Urine Ketones Negative, Urine Occult Blood 10 H, Urine Nitrite Negative, Urine Bilirubin Negative, Urine Urobilinogen Normal, Ur Leukocyte Esterase 500 H, Urine RBC 0 SEEN, Urine WBC 25-50 SEEN, Ur Squamous Epith Cells 0 SEEN, Urine Bacteria 0 SEEN, Urine Mucus 0 SEEN Micro: Microbiology 02/13/22 09:10 Nasal Secretion SARS-CoV-2 Antigen (Rapid) - Final Rhythm Strip Rhythm Strip: Sinus Rhythm Rate: 60 Ectopy: None Radiology Impression Brain CT 02/13/22 07:46 IMPRESSION: Stable right frontal encephalomalacia postoperative change status post craniotomy. Since September 28, 2021 there is a persistent hyperdense 1.3 x 1.2 cm mass in the left frontal lobe with adjacent edema. There is a similar appearance of slight hyperdensity in the sulci adjacent to this mass with vasogenic edema. This edema is less than the prior study August 14, 2021 and the mass appears more hyperdense and contracted than August 14, 2021. Given the subtle hyperdensity consider possible vascular mass possible adjacent petechial hemorrhage. Electronically Signed: Agata Hurt MD at 9:11 EST , ADDENDUM: 02/13/22925 IMPRESSION: Stable right frontal encephalomalacia postoperative change status post craniotomy. Since September 28, 2021 there is a persistent hyperdense 1.3 x 1.2 cm mass in the left frontal lobe with adjacent edema. There is a similar appearance of slight hyperdensity in the sulci adjacent to this mass with vasogenic edema. This edema is less than the prior study August 14, 2021 and the mass appears more hyperdense and contracted than August 14, 2021. Given the subtle hyperdensity consider possible vascular mass possible adjacent petechial hemorrhage. N.B. : The above Results were Read Back by Agata Hurt MD to Dr Kaushal Olivares MD, and understanding confirmed on 02/13/2022 09:19:03 (ET). Electronically Signed: Agata Hurt MD at 9:11 EST , Chest X-Ray 02/13/22 08:40 IMPRESSION: Mild cardiomegaly. Degenerative change thoracic spine. Evidence of old granulomatous disease stable since prior study. No visualized acute focal infiltrate. Electronically Signed: Agata Hurt MD at 9:23 EST , Assessment & Plan Assessment/Plan (1) Urinary tract infection: PLAN: Plan 1. Acute cystitis-patient was placed on IV Rocephin, he will be given IV fluids and CBC will be rechecked tomorrow. #2 acute on chronic debility-PT and OT will see the patient, he may be a candidate for short-term skilled placement in a jail facility. I talked to the , she is agreeable to this. 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
[2022-02-13] MEDS: Acetaminophen 325 MG Tablet 650 MG PO (16:58)
[2022-02-13] MEDS: 0.9% Normal Saline 1,000 ML 100 ML IV (16:59)
[2022-02-13] MEDS: Doxazosin 1 MG Tablet 2 MG PO (21:10)
[2022-02-13] MEDS: Metoprolol Tartrate 25 MG Tablet PO (21:11)
[2022-02-13] MEDS: QUEtiapine 25 MG Tablet 12.5 MG PO (21:12)
[2022-02-13] MEDS: Heparin Injection (Vial) 5,000 UNIT/ML VIAL 5000 UNIT SC (21:14)
[2022-02-14] VITALS (10 sets, daily range): BP systolic 120–145; BP diastolic 65–77; PULSE 53–68; RESP 16–18; TEMP 36.5–36.7; O2SAT 95–97
[2022-02-14] MEDS: 0.9% Normal Saline 1,000 ML 100 ML IV ×2 (02:02→09:15)
[2022-02-14] MEDS: Levothyroxine 25 MCG TABLET 12.5 MCG PO (05:50)
[2022-02-14 07:04] LABS: Anion Gap 5 (5-15); BUN 29 mg/dL (7-18); BUN/Creat Ratio 31.2 RATIO (10-20); Chloride 111 mmol/L (98-107); Creatinine, Serum 0.93 mg/dL (0.70-1.30); EST Glomerular Filtration Rate 83 mL/min (>60); Est Glom Filt Rate - Afr Amer 100 mL/min (>60); Estimated Creatinine Clearance 63.23 ml/min; Glucose 103 mg/dL (74-106); Potassium 3.8 mmol/L (3.5-5.1); Sodium Level 141 mmol/L (136-145)
[2022-02-14] MEDS: dexAMETHasone 4 MG Tablet 2 MG PO (07:41)
[2022-02-14] MEDS: Metoprolol Tartrate 25 MG Tablet PO ×2 (09:16→21:06)
[2022-02-14] MEDS: Famotidine 20 MG Tablet PO (09:16)
[2022-02-14] MEDS: Ceftriaxone 1 GM/50 ML BAG IV (09:16)
[2022-02-14] MEDS: Heparin Injection (Vial) 5,000 UNIT/ML VIAL 5000 UNIT SC ×2 (09:17→21:05)
--- NOTE | 2022-02-14 10:53 | PCM.PN.HOSP ---
Subjective Subjective Patient was seen and examined today, he does not complain of any fevers or chills. Patient has remained afebrile. BUN is improved. Objective Data Objective Data Vital Signs: Vital Signs Temp Pulse Resp BP Pulse Ox O2 Del Method 98.0 F 68 18 123/75 H 96 Room Air 02/14/22 07:43 02/14/22 09:16 02/14/22 07:43 02/14/22 07:43 02/14/22 07:43 02/14/22 07:49 Oxygen Delivery Method Room Air Weight: 79 kg Body Mass Index (BMI) 25.0 Intake & Output: Intake and Output for Last 24 Hours 02/12/22 02/13/22 02/14/22 23:59 23:59 23:59 Intake Total 1350 / 1350 1676.67 / 1676.67 Output Total 275 / 275 Balance 1350 / 1300 1401.67 / 1401.67 Lab / Micro Data Result Diagrams: 02/13/22 08:15 02/14/22 06:07 Labs: Laboratory Results - last 24 hr 02/14/22 06:07: Sodium 141, Potassium 3.8, Chloride 111 H, Carbon Dioxide 25.0, Anion Gap 5, BUN 29 H, Creatinine 0.93, Estim Creat Clear Calc 63.23, Est GFR (MDRD) Af Amer 100, Est GFR (MDRD) Non-Af 83, BUN/Creatinine Ratio 31.2 H, Glucose 103, Calcium 8.0 L Micro: Microbiology 02/13/22 08:15 Urine, Clean Catch Urine Culture - Preliminary GNR Poss Pseudomonas sp 02/13/22 09:10 Nasal Secretion SARS-CoV-2 Antigen (Rapid) - Final Rhythm Strip Rhythm Strip: Sinus Rhythm Rate: 60 Ectopy: None Physical Exam Const alert, no apparent distress and healthy appearing General Appearance: cooperative, well kempt and well developed Orientation / Consciousness: awake, oriented to person and oriented to place HEENT normocephalic, head/scalp atraumatic and moist oral mucous membranes Eyes PERRL, EOMs intact bilaterally and conjunctivae normal Neck supple, no JVD, thyroid normal and no carotid bruits General: trachea midline Resp normal respiratory effort, no retractions, no use of accessory muscles and clear to auscultation bilaterally Auscultation: Negative for rales, rhonchi or wheezes Cardio regular rate, regular rhythm, S1 normal heart sound, S2 normal heart sound, no murmurs, no rub and no gallops GI normal to inspection, nondistended, normoactive bowel sounds, soft to palpation, non-tender and non-distended Extremity no clubbing, cyanosis or edema Skin no rashes or lesions noted General Skin Exam: no breakdown Neuro oriented x3, CN's II-XII intact bilaterally, no focal motor deficits and no sensory deficits noted Sensorium / Orientation: awake and alert Speech: speech normal Psych affect normal Assessment & Plan Assessment/Plan (1) Urinary tract infection: PLAN: Plan 1. Acute cystitis-patient was placed on IV Rocephin, he will be given IV fluids and BMP will be rechecked tomorrow. #2 acute on chronic debility-PT and OT will see the patient, he may be a candidate for short-term skilled placement in a [facility] facility. I talked to the , she is agreeable to this. I do not know if the patient will qualify to go to an extended care facility. Social service will have to work with the patient tomorrow. 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
[2022-02-14] MEDS: Ciprofloxacin 250 MG Tablet PO (16:22)
[2022-02-14] MEDS: Tolterodine Tartrate 4 MG CAP.SA PO (16:22)
[2022-02-14] MEDS: Tamsulosin HCl 0.4 MG Capsule 0.8 MG PO (16:23)
[2022-02-14] MEDS: Acetaminophen 325 MG Tablet 650 MG PO (16:23)
[2022-02-14] MEDS: QUEtiapine 25 MG Tablet PO (21:06)
[2022-02-15 02:52] VITALS: BP 167/91; PULSE 56; RESP 18; TEMP 36.4; O2SAT 97
[2022-02-15 04:47] VITALS: BP 167/91; PULSE 56; RESP 18; TEMP 36.4; O2SAT 97
[2022-02-15] MEDS: Levothyroxine 25 MCG TABLET 12.5 MCG PO (04:56)
--- NOTE | 2022-02-15 07:24 | PN.HOSP_ITS ---
Subjective Subjective DOS: 02/15/2022 CC: f/u UTI Feeling better today, no complaints this AM Objective Data Objective Data Vital Signs: Vital Signs Temp Pulse Resp BP Pulse Ox O2 Del Method 97.5 F L 56 L 18 167/91 H 97 Room Air 02/15/22 04:47 02/15/22 04:47 02/15/22 04:47 02/15/22 04:47 02/15/22 04:47 02/15/22 04:47 Oxygen Delivery Method Room Air Weight: 79 kg Body Mass Index (BMI) 25.0 Intake & Output: Intake and Output for Last 24 Hours 02/13/22 02/14/22 02/15/22 23:59 23:59 23:59 Intake Total 1350 / 1350 2188.34 / 2628.34 680 / 680 Output Total 1275 / 1650 800 / 800 Balance 1350 / 1300 913.34 / 978.34 -120 / -120 Lab / Micro Data Result Diagrams: 02/13/22 08:15 02/14/22 06:07 Micro: Microbiology 02/13/22 08:15 Urine, Clean Catch Urine Culture - Preliminary GNR Poss Pseudomonas sp 02/13/22 09:10 Nasal Secretion SARS-CoV-2 Antigen (Rapid) - Final Rhythm Strip Rhythm Strip: Sinus Rhythm Rate: 60 Ectopy: None Physical Exam Const alert and no apparent distress HEENT normocephalic and head/scalp atraumatic Eyes Eyes Narrative: EOM grossly intact, anicteric Neck supple Resp normal respiratory effort and clear to auscultation bilaterally Cardio regular rate and regular rhythm GI soft to palpation, non-tender and non-distended Extremity Extremity Narrative: No edema appreciated Neuro moves all extremities Neuro Narrative: No overt focal deficits appreciated Psych Psych Narrative: Cooperative Assessment & Plan Assessment/Plan (1) Urinary tract infection: PLAN: Plan 81-year-old male history of BPH, CKD stage IIIb, hypertension, melanoma metastatic to the brain, hypothyroidism presented 02/13 with generalized weak ness and urinary frequency for 1 to 2 days #Acute cystitis IV fluids and Rocephin which was changed to Cipro 250 p.o. twice daily due to gram-negative rods ? Pseudomonas pending identification and final sensitivities We will follow-up urine culture Had urinary frequency even after antibiotics started On tamsulosin, Detrol also started Blood cultures no growth to date Plan to discharge today #Acute on chronic debility PT/OT did not feel he had a skilled need Will go home with #Metastatic melanoma to the brain CT scan of the brain revealed a hyperdense 1.3 x 1.2 cm mass in the left frontal lobe with adjacent edema, the edema is less than the prior study in August 2021 and the mass appears more hyperdense and contracted than august of 2021.? Patient's brain CT shows a 6 stable right frontal encephalomalacia postoperative changes status postcraniotomy also. Neurosurgery had been contacted in the ED and felt the films were fairly consistent and somewhat improved from previous head CTs Home Decadron was continued #Hypothyroidism Remain on Synthroid Charges/Coding Visit Charges Inpatient E&M: 30210 Subs Hosp L2
[2022-02-15] MEDS: dexAMETHasone 4 MG Tablet 2 MG PO (07:36)
[2022-02-15 07:37] VITALS: PULSE 54
[2022-02-15] MEDS: Famotidine 20 MG Tablet PO (07:37)
[2022-02-15] MEDS: Metoprolol Tartrate 25 MG Tablet PO (07:37)
[2022-02-15] MEDS: Ciprofloxacin 250 MG Tablet PO (07:37)
[2022-02-15] MEDS: Heparin Injection (Vial) 5,000 UNIT/ML VIAL 5000 UNIT SC (07:38)
[2022-02-15] MEDS: Tolterodine Tartrate 4 MG CAP.SA PO (07:38)
[2022-02-15 08:15] VITALS: BP 145/70; PULSE 58; RESP 16; TEMP 36.6; O2SAT 99
--- NOTE | 2022-02-15 09:16 | CASEMGMT ---
Addendum entered by Luzma Hull 02/15/22 09:42: KIM received phone call back from pt , Sushma. Sushma reported concerns with pt getting up in the middle of the night and eating an abundance of food. Sushma discussed pt wanting to eat due to steroid medication and stated I can't handle him doing that. Sushma discussed new plan, contacting campus aide to come throughout the night to watch pt. Sushma also spoke about retirement care, which is an option presented to pt and Sushma by Dr. Tanner. SW explained retirement care in terms of LTC at a nursing facility. Sushma responded with concern over financial ability and not being able to place pt intermediate. Sushma stated would not like pt to be away from home anyway and working through the plan set up now. KIM discussed Dr. Hoffman intent to discharge pt and Sushma voiced understanding. PLAN: D/C home DEXTER Pearl Original Note: Social work SW called pt to discuss D/c for pt. SW left message requesting call back regarding Dr. Au's intent to discharge pt today, as pt is medically ready. DEXTER Pearl
--- NOTE | 2022-02-15 09:51 | CASEMGMT ---
KATHERINE STOVER made tc to pt Sushma at [phone] to discuss RASMUSSEN form. KATHERINE STOVER explained RASMUSSEN form, patient voiced understanding. Second witness verified understanding. Filed RASMUSSEN form in pt chart and provided pt with a copy of signed RASMUSSEN form on tray table. Patient had no further questions or concerns at this time.
[2022-02-15 11:22] VITALS: BP 129/74; PULSE 62; RESP 16; TEMP 36.8; O2SAT 96
--- NOTE | 2022-02-15 14:11 | DCINST_ITS ---
Discharge Instructions Diet Discharge Diet: No restrictions Activity Discharge Activity: Return to Normal Activity Follow Up Care Test Results: Test results from this visit will be discussed in further detail at your follow- up appointment, if applicable. Discharge Plan Admission Admit Date/Time: 02/13/22 11:45 Primary Reason for Your Visit: Generalized weakness and confusion and frequent urination Attending Provider: Silvia Au Primary Care Provider: Berny Tripathi Consulting Providers: Micheal Tanner Patient Instructions: Urinary Tract Infections in Men Additional Instructions / Restrictions: *Please take this with you to your next doctors appointment* ? Starting 02/15/2022 it is reported that your dexamethasone dose will be 1 mg daily for 4 weeks. Please discuss with your oncologist ?Your doxazosin was held during this admission and you were started on tamsulosin (Flomax). You will take this daily, prescription will be sent to your preferred pharmacy on file ?You were also started on tolterodine tartrate (Detrol LA) for your bladder, a prescription of this will also be sent to your preferred pharmacy on file. He will take 4 mg daily ?Your quetiapine (Seroquel) was increased to 25 mg at bedtime. You indicated that you have a 25 mg prescription and have been taking half a tab. You can begin taking 1 full tab, please contact your prescribing physician for further refills. ?You were found to have a urinary tract infection and will be discharged on ciprofloxacin. He will take 1 dose tonight followed by 4 days of twice daily. -Please call your primary care provider's office upon discharge to schedule a hospital follow up within 1 week. -For any concerning signs or symptoms please call 911 or proceed to the nearest emergency department Discharge Orders/Prescriptions Prescriptions: New tolterodine 4 mg Capsule,Extended Release 24hr 4 mg PO DAILY 30 Days Qty: 30 0RF ciprofloxacin HCl 250 mg Tablet 250 mg PO BID 5 Days Qty: 9 0RF tamsulosin 0.4 mg Capsule 0.8 mg PO DAILY@1730 30 Days Qty: 30 0RF Continued Align 4 mg capsule 4 mg PO DAILY magnesium oxide 400 mg magnesium tablet 400 mg PO DINNER metoprolol tartrate 25 MG tablet 25 mg PO BID Cresemba 186 mg Capsule 186 mg PO DINNER Rx Instructions: start 12-24 hrs after loading dose; swallow whole; do not crush, chew, open, break, dissolve, or cut cyanocobalamin (vitamin B-12) 500 mcg Tablet 1,000 mcg PO BREAKFAST Qty: 1 0RF levothyroxine 25 mcg tablet 25 mcg PO DAILY Label Comments: take 1 tablet by mouth once daily before breakfast famotidine 20 mg tablet 20 mg PO DAILY cholecalciferol (vitamin D3) 125 mcg (5,000 unit) capsule 125 mcg PO DINNER menthol-zinc oxide [Calmoseptine] 0.44-20.6 % ointment 1 applic topical BID PRN (Reason: EXCORIATION) Protocol: *Topical Application Instructions APPLICATION INSTRUCTIONS: To coccyx/buttocks Changed quetiapine 25 mg tablet 25 mg PO QHS Qty: 30 0RF Label Comments: take 1/2 tablet by mouth at bedtime dexamethasone 2 mg tablet 1 mg PO DAILY Qty: 30 0RF Discontinued doxazosin 2 MG tablet 2 mg PO QHS Referrals / Follow Up: Berny Tripathi MD [Primary Care Provider] - Within 1 Week Disposition Disposition (needs filled in before D/C Order can be placed): Home, Self Care
--- NOTE | 2022-02-15 14:34 | DS.PCM_ITS ---
Providers Date of Admission: 02/13/22 Date of Discharge: 02/15/22 Primary Care Physician: Dr. 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 #Hypothyroidism Medications at Discharge Home Medications metoprolol tartrate 25 mg tablet 25 mg PO BID BP 05/17/20 Bifidobacterium infantis 4 mg capsule (Align) 4 mg PO DAILY probiotic 06/13/20 magnesium oxide 400 mg PO DINNER supplement 08/26/21 isavuconazonium sulfate 186 mg capsule (Cresemba) 186 mg PO DINNER 09/29/21 cyanocobalamin (vitamin B-12) 500 mcg tablet 1,000 mcg PO BREAKFAST #1 TAB 10/26/21 cholecalciferol (vitamin D3) 125 mcg (5,000 unit) capsule 125 mcg PO DINNER 02/13/22 famotidine 20 mg tablet 20 mg PO DAILY 02/13/22 levothyroxine 25 mcg tablet 25 mcg PO DAILY 02/13/22 menthol 0.44 %-zinc oxide 20.6 % topical ointment (Calmoseptine) 1 applic topical BID PRN EXCORIATION 02/13/22 ciprofloxacin HCl 250 mg tablet 250 mg PO BID 5 days #9 tabs 02/15/22 dexamethasone 2 mg tablet 1 mg PO DAILY #30 tabs 02/15/22 quetiapine 25 mg tablet 25 mg PO QHS #30 tabs 02/15/22 tamsulosin 0.4 mg capsule 0.8 mg PO DAILY@1730 30 days #30 caps 02/15/22 tolterodine 4 mg capsule,extended release 24 hr 4 mg PO DAILY 30 days #30 caps 02/15/22 Hospital Course Summary of Care Provided Minutes Spent on Discharge: 35 Hospital Course: 81-year-old male history of BPH, CKD stage IIIb, hypertension, melanoma metastatic to the brain, hypothyroidism presented 02/13 with generalized weakness and urinary frequency for 1 to 2 days as well as waking up to eat in the middle of the night since being on Decadron. She usually has nursing help at night but this weekend she did not. On admission UA suggestive of UTI and he was started on Rocephin however given preliminary urine culture this was switched to Cipro. Did improve with that and sensitivities finalized, Pseudomonas and is sensitive to Cipro. Additionally given problems with sally tional urinary symptoms he was switched from doxazosin to tamsulosin and was also started on Detrol LA. Did well on these. Was evaluated by PT and OT and was deemed okay to go home. Discussed with patient and his , questions answered. Discharged home in stable condition. Discharge instructions for patient as follows: *Please take this with you to your next doctors appointment* ? Starting 02/15/2022 it is reported that your dexamethasone dose will be 1 mg daily for 4 weeks.? Please discuss with your oncologist ?Your doxazosin was held during this admission and you were started on tamsulosin (Flomax).? You will take this daily, prescription will be sent to your preferred pharmacy on file ?You were also started on tolterodine tartrate (Detrol LA) for your bladder, a prescription of this will also be sent to your preferred pharmacy on file.? He will take 4 mg daily ?Your quetiapine (Seroquel) was increased to 25 mg at bedtime.? You indicated that you have a 25 mg prescription and have been taking half a tab.? You can begin taking 1 full tab, please contact your prescribing physician for further refills. ?You were found to have a urinary tract infection and will be discharged on ciprofloxacin.? He will take 1 dose tonight followed by 4 days of twice daily. -Please call your primary care provider's office upon discharge to schedule a hospital follow up within 1 week. -For any concerning signs or symptoms please call 911 or proceed to the nearest emergency department Physical Exam Const alert and no apparent distress HEENT normocephalic and head/scalp atraumatic Eyes Eyes Narrative: EOM grossly intact, anicteric Neck supple Resp normal respiratory effort and clear to auscultation bilaterally Cardio regular rate and regular rhythm GI soft to palpation, non-tender and non-distended Extremity Extremity Narrative: No edema appreciated Neuro moves all extremities Neuro Narrative: No overt focal deficits appreciated Psych Psych Narrative: Cooperative Weight / BMI Weight Weight: 79 kg Body Mass Index (BMI) 25.0 ABG / Lab / Microbiology Data Result Diagrams: 02/13/22 08:15 02/14/22 06:07 Microbiology: Microbiology 02/13/22 09:18 Blood Culture (Wb) - Anticubital Right Blood Culture - Preliminary No growth in 48 hours. 02/13/22 09:20 Blood Culture (Wb) - Left Forearm Blood Culture - Preliminary No growth in 48 hours. 02/13/22 08:15 Urine, Clean Catch Urine Culture - Final Pseudomonas aeroginosa 02/13/22 09:10 Nasal Secretion SARS-CoV-2 Antigen (Rapid) - Final D/C Instructions Discharge Diet: No restrictions Meaningful Use Info Meaningful Use Diagnoses (Choose all that apply): None applicable Discharge Plan Admission Admit Date/Time: 02/13/22 11:45 Primary Reason for Your Visit: Generalized weakness and confusion and frequent urination Attending Provider: Silvia Au Primary Care Provider: Berny Tripathi Consulting Providers: Micheal Tanner Instructions Patient Instructions: Urinary Tract Infections in Men Additional Instructions / Restrictions: *Please take this with you to your next doctors appointment* ? Starting 02/15/2022 it is reported that your dexamethasone dose will be 1 mg daily for 4 weeks. Please discuss with your oncologist ?Your doxazosin was held during this admission and you were started on tamsulosin (Flomax). You will take this daily, prescription will be sent to your preferred pharmacy on file ?You were also started on tolterodine tartrate (Detrol LA) for your bladder, a prescription of this will also be sent to your preferred pharmacy on file. He will take 4 mg daily ?Your quetiapine (Seroquel) was increased to 25 mg at bedtime. You indicated that you have a 25 mg prescription and have been taking half a tab. You can begin taking 1 full tab, please contact your prescribing physician for further refills. ?You were found to have a urinary tract infection and will be discharged on ciprofloxacin. He will take 1 dose tonight followed by 4 days of twice daily. -Please call your primary care provider's office upon discharge to schedule a hospital follow up within 1 week. -For any concerning signs or symptoms please call 911 or proceed to the nearest emergency department Discharge Orders/Prescriptions Prescriptions: New tolterodine 4 mg Capsule,Extended Release 24hr 4 mg PO DAILY 30 Days Qty: 30 0RF ciprofloxacin HCl 250 mg Tablet 250 mg PO BID 5 Days Qty: 9 0RF tamsulosin 0.4 mg Capsule 0.8 mg PO DAILY@1730 30 Days Qty: 30 0RF Continued Align 4 mg capsule 4 mg PO DAILY magnesium oxide 400 mg magnesium tablet 400 mg PO DINNER metoprolol tartrate 25 MG tablet 25 mg PO BID Cresemba 186 mg Capsule 186 mg PO DINNER Rx Instructions: start 12-24 hrs after loading dose; swallow whole; do not crush, chew, open, break, dissolve, or cut cyanocobalamin (vitamin B-12) 500 mcg Tablet 1,000 mcg PO BREAKFAST Qty: 1 0RF levothyroxine 25 mcg tablet 25 mcg PO DAILY Label Comments: take 1 tablet by mouth once daily before breakfast famotidine 20 mg tablet 20 mg PO DAILY cholecalciferol (vitamin D3) 125 mcg (5,000 unit) capsule 125 mcg PO DINNER menthol-zinc oxide [Calmoseptine] 0.44-20.6 % ointment 1 applic topical BID PRN (Reason: EXCORIATION) Protocol: *Topical Application Instructions APPLICATION INSTRUCTIONS: To coccyx/buttocks Changed quetiapine 25 mg tablet 25 mg PO QHS Qty: 30 0RF Label Comments: take 1/2 tablet by mouth at bedtime dexamethasone 2 mg tablet 1 mg PO DAILY Qty: 30 0RF Discontinued doxazosin 2 MG tablet 2 mg PO QHS Referrals / Follow Up: Berny Tripathi MD [Primary Care Provider] - Within 1 Week Disposition Disposition (needs filled in before D/C Order can be placed): Home, Self Care Charges/Coding Visit Charges OBSV E&M: 10724 Observation care discharge
== END 2022-02-15 15:06 | disposition home or self-care (01) ==
LOC: ED 09:56 → MS3 12:14
PROVIDERS: Admitting Provider Internal Medicine; Emergency Provider Emergency Medicine; PCP Internal Medicine; Visit Provider Internal Medicine
DX: N30.00 Acute cystitis without hematuria (principal); C79.31 Secondary malignant neoplasm of brain; C43.9 Malignant melanoma of skin, unspecified; N18.32 Chronic kidney disease, stage 3b; E78.5 Hyperlipidemia, unspecified; B96.5 Pseudomonas (aeruginosa) (mallei) (pseudomallei) as the cause of diseases classified elsewhere; I12.9 Hypertensive chronic kidney disease with stage 1 through stage 4 chronic kidney disease, or unspecified chronic kidney disease; K21.9 Gastro-esophageal reflux disease without esophagitis; E03.9 Hypothyroidism, unspecified; Z79.899 Other long term (current) drug therapy; Z79.890 Hormone replacement therapy; N40.0 Benign prostatic hyperplasia without lower urinary tract symptoms; G47.33 Obstructive sleep apnea (adult) (pediatric)
CPT/HCPCS: 36415; 70450; 71046; 80048; 80053; 81001; 82140; 85025; 87040; 87077; 87086; 87088; 87184; 87186; 87811; 93005; 96361; 96365; 96366; 96372; 97162; 97165; 99218; 99283; J7030; A4216; G0378

== ENCOUNTER 2022-03-22 14:00 | Outpatient (RCR) | payer MEDICARE, SELFPAY ==
--- NOTE | 2022-01-29 13:04 | HP.SPREEV_ITS ---
History - History Date of Eval: 11/13/21 Smoking Status: Never smoker Hx Smoking: No Hx Tobacco Use: No Hx Smoking Exposure: No - Pain Is pain an issue with your current prescribed condition?: No Patient Allergies - Allergies Allergies red dye Allergy (Severe, Verified 09/28/21 23:50) rash terbinafine [From Lamisil] Adverse Reaction (Verified 09/28/21 23:50) Rash Previous/Current Goals - Goals 1-5 Previous Goal #1: Pt will establish volitional control of respiration evidenced by utilization of diaphragmatic breathing to initiate approximation of vocal folds and increased vocal intensity during structured tasks 80% of the time given min verbal cues. Goal 1 Status: GOAL PROGRESSING: Pt attempting pitch glides with difficulty following directions on how to complete - Pt benefiting from visual of a de paz curve. Pt producing a total of 2-3 pitches and did not benefit from models. Pt's overall voice was weak despite prepping task with diaphragmatic breathing. Pt attempts crescendo louder with varying acc depending on ability to follow directions with his highest acc being 80% independently and benefited from visual of numbers getting louder. Pt demonstrating awareness of change in amplitude. Previous Goal #2: Pt will complete basic to mod complex convergent and divergent naming tasks with 85% acc independently across 3 measured opportunities to improve word retrieval. Goal 2 Status: GOAL STAGNANT: Pt completed word definition task during an acrostic puzzle with 60% acc independently by finding a word that met a description. Pt benefiting from MAX semantic and phonemic cues to improve acc to 80%. Peter participated in modified semantic feature analysis via describing pictures to therapist to guess with 70% acc independently and benefited from mod verbal questions to probe further detail. Previous Goal #3: Pt will complete basic to mod complex short-term and working memory tasks (including following directions) with 85% acc independently across 3 measured opportunities. Goal 3 Status: GOAL STAGNANT: Pt completed immediate memory task via recall of an arrangement of 5 numbers presented to him for 5 seconds before being removed from field of vision with 100% acc. Task increased in difficulty for short-term memory following a 10-15 second delay which patient completed with 0% acc independently and benefited from looking at the board 1-3 additional times to improve acc to 100%. Pt completing immediate memory task via recall of an arrangement of 4 words presented to him for 5 seconds before being removed from field of vision with 100% acc. Pt demonstrated difficulty when a distractor was introduced which decreased acc to 75% of field of 4 - Pt benefiting from fill in the blank cues. --- Pt completed short-term memory activity via a board game of [employer] (memory game) with 30% to 40% across 3 trials progressing to the most of 60% acc with mod-max verbal and logical cues re: opportunities to find a correct match via seeing the previous pair prior. Pt placed tokens back over incorrect picture 3x throughout game plan and demonstrated difficulty problem solving how to fix and which one to change. Pt picking up multiple pieces in the same area when he felt he was close to finding the desired token/match on 6 occasions. Direct education has been provided re: WRAP (write, repeat, associate, picture) memory strategies with examples and handout provided. Pt completed immediate recall of strategies with 75% acc independently and benefited from phonemic cue to improve recall to 100%. Previous Goal #4: Pt will complete basic to mod complex problem solving/reasoning and safety awareness tasks with 85% acc independently across 3 measured opportunities. Goal 4 Status: GOAL STAGNANT: Pt completed mod complex problem solving/reasoning task via sequencing 4 words in terms of progression (e.g., shout, whisper, silence, talk) with 28% acc independently, improving to 50% acc with min cues, to 64% acc with mod cues, and 78% acc given max cues. Pt completed mod complex problem solving/reasoning task via a deduction by exclusion puzzle via following 6 clues to exclude dates on a calendar to only have one date remaining with 0% acc independently and benefited from MAX VERBAL and LOGICAL CUES to complete puzzle with 100% acc. Pt continues to demonstrate difficulty with reasoning tasks. Pt reporting that he was going to run the horse race clocks at the fair in December however Sushma () reporting this was not the case. Pt completed structured safety awareness tasks with identifying the problem in picture scenes with 66% acc and a solution with 68% acc and benefited from mod-max verbal cues and logical cues to improve acc to 80-90%. Pt completed problem solving/reasoning and sequencing task of ordering 6 step picture cards of daily living tasks with 50% acc independently and benefited from mod logical cues to improve acc to 83%. Previous Goal #5: Pt will complete basic to mod complex sustained, alternating, divided attention tasks with 85% acc independently across 3 measured opportunities. Goal 5 Status: GOAL STAGNANT: Pt completed basic alternating attention task via alphabetical [id number] with 88% acc independently. Pt demonstrating difficulty identifying the picture at the end of the puzzle as a barn and silo, [place]. Pt completed sustained and alternating attention task via word search puzzle which he completed with 10% acc independently and benefited from mod-max verbal cues to slow down and scan each row for only one word at a time. Pt completes alternating attention task during trail making with 45% acc and benefits from mod logical cues to improve to 100%. Objective Cog/Ling/Com - Test Administered Znhqpnjnc-Wjdmdudnqb-Wngmvytrjofly Assessment Administered: Yes Ticbxsafy-Evxscjvrut-Dqwcxbohtaagd Assessment: Cognitive ? Linguistic skills were evaluated using patient/family interview, skilled observation and informal evaluation through tasks completed by the patient. - Orientation Orientation: Person, Place, Date, Day - Answer Yes/No Questions Simple: WNL Complex: WFL - Follows Commands 1 Step: WNL 2 Step: WNL Complex: WNL - Repetition Words: Mild Sentences: Mild - Naming Responsive naming: WFL Naming in categories: WFL [place]: WFL Abstract: Mild - Conversational Tasks Conversational Tasks: WFL - Writing Functional writing correctly: Name, Address, Envelope - Recall Repeating Digits: repeats up to 5 numbers and then with 6 and 7 number repetition Pt performing with 16% acc Repeating Words: Pt repeats up to 3 words with 100% acc and then completes task with 50-75% acc with 4 to 7 words. Repeating Sentences: repeats with 90 to 100% acc independently Percent recall of paragraph information (open ended questions): completes with 80% acc with referring back to the paragraph. - Medication Reading a medication label: Mild Correctly stating instructions of medications: Mild - Organization Adding members to categories: Mild Identifying which does not belong: Mild - Cause & Effect Cause & Effect: Mild - Verbal Sequencing Verbal Sequencing: Moderate - Problem Solving Simple: Moderate Complex: Severe - Judgement & Reasoning Judgement/Reasoning: Moderate - Deductive Reasoning Deductive Reasoning: Severe - Cognitive Linguistic Supervision/Saftey Awareness of deficits: Moderate, Severe Being left home alone: Moderate, Severe Managing medications: Moderate, Severe Managing finances: Severe - Executive Function Comments Comments: Pt is reportedly taking medications at the wrong times at home (e.g., thyroid meds at 2 am when he wakes up) so spouse has locked them in a cabinet, which upset patient. Plan - Plan Plan: Will recommend Pt for weekly outpatient speech therapy to address mod- severe cognitive impairment characterized by deficits in immediate and short- term memory, executive functioning, attention, problem solving/reasoning, and safety awareness. Pt would benefit from safety and deficit awareness training as well as cognitive training to improve cognitive functioning. Without skilled ST services, the Pt is at risk for decreased independence completing daily living tasks - Recommendations Treatment Warranted: Yes Treatment Warranted: Cognition, Voice - Progress Prognosis: Fair - Frequency Frequency: 1x/Week Additional (Frequency): 30 min. Duration: 4 Weeks - Goals that are Established Determination:: Goals will be added/modified as deemed necessary and appropriate. Therapy will be discontinued when results of re-evaluation indicate therapy is no longer needed or lack of progress has been documented. - Goal #1-5 Goal #1: Peter will establish volitional control of respiration evidenced by utilization of diaphragmatic breathing to initiate approximation of vocal folds and increased vocal intensity during structured tasks 80% of the time given min verbal cues. Goal #2: Peter will participate in deficit awareness and safety awareness tasks to improve daily functioning at home with 80% acc given min verbal and logical cues. Goal #3: . Goal #4: . Goal #5: .
--- NOTE | 2022-02-08 12:49 | HP.PTREVAL_ITS ---
Dr. Berny Tripathi MD, It has been my pleasure to treat PETER WESTFALL over the last 32 visits for debility. Please see the progress note below for an update on the physical therapy plan of care! Subjective: Pt. reports no major issues. was describing him haivng more issues at night. Not sleeping well and with getting up very early. No issues n oted pre treatment today. Objective/Function: TU.9sec with out AD. 6MWT without AD: 1004feet. MMT 4+/5 BLEs throughout, except R DF 4-/5. He has improved with his DF, but still is limited. He does have a noticeable audible with foot slap on R side during initial contact on R side. GAIT: Peter is able ot ambule well without Ad, he does have lack of eccentric control on R ankle DF. STAIRS: Pt. did well on stairs today with use of 2 HR, but unable to complete with 1 HR, especially with descending. Plan Plan: I want to continue with PT with peter with focus on higher end balance, progress LE strengthening and increase gait distance (endurance). Balance/Gait/Functional tests - Balance/Special Test Scores Lower Extremity Functional Score: 50 Goals Goal 1:: LTG: Pt. to be I with HEP for gym and home exercises. Goal Time Frame: 4-6 Weeks Goal Progress: Progressing Goal 2:: STG: Pt. to have increased TUG time to less than 10sec. Goal Time Frame: 2-4 Weeks Goal Progress: Progressing Goal 3:: LTG: Pt. to improve 6 MWT to greater than 1200 feet without use of AD indicating increased stability and safety with gait. Goal Time Frame: 4-6 Weeks Goal Progress: Progressing Goal 4:: LTG: Pt. to be able ascend and descend stairs reciprocally with 1 HR without LOB. Goal Time Frame: 4-6 Weeks Goal Progress: Progressing Goal 5:: LTG: PT. to have full strength of BLEs, including full 5/5 R DF strength to allow for greater ability to ambulate with improved control. Goal Time Frame: 4-6 Weeks Goal Progress: Progressing Anticipated Interventions Patient/Client Instruction: Educate patient on: Condition, Plan of Care, Risk Factors, Benefits of Fitness Program For the Purpose of:: To foster healthy habits, To improve decision making, To facilitate caregiver knowledge, To improve self management, To prevent re- injury, To improve ability to perform tasks related to life management Therapeutic Exercise to Include: Strength training, Power training, Endurance training, Balance training, Coordination, Dynamic Lumbar Stabilization For the Purpose of:: To decrease swelling/inflammation, To increase ROM, To improve nutrient delivery to tissue, To increase oxygenation perfusion, To improve muscle performance and motor function, To improve gait and locomotor functions, To improve health of tissue, To decrease soft tissue restriction, To improve endurance, To improve balance Please do not hesitate to contact me at [phone] by phone or if you have questions or concerns regarding this new plan of care! Sincerely, TOMMY SteinerT
--- NOTE | 2022-02-24 12:00 | HP.PTREVAL_ITS ---
Dr. Berny Tripathi MD, It has been my pleasure to treat WINSTON WESTFALL over the last 40 visits for debility. Please see the progress note below for an update on the physical therapy plan of care! Subjective: Pt. reports being 75% better overall. No falls noted. Pt. pleased with progress. No pain noted today. Objective/Function: Pt. has improved strength in BLEs: 5-/5 throughout except 4+/5 R DF, B hip flexion 4/5, B hip abd 4+/5. TU.2 sec without AD. 6 MWT: 789feet no AD. FGA: , difficulty with narrow GIBSON and with eyes closed, stairs. Since patient went to the hospital with UTI and dehydration he has had a bit more difficulty with endurance and gait. He was been a bit slower since with his mobility, but still stable. He has had an uptick with his strength in BLEs though. I would like to improve his gait tempo and balance in order to increase stability/safety with general mobility./. . Plan Plan: He has had a bit more issues with his endurance and gait progression over the past 2 weeks since being in hospital with UTI. Pt. would benefit from continued PT to work on these issues. Balance/Gait/Functional tests - Balance/Special Test Scores Lower Extremity Functional Score: 50 Goals Goal 1:: LTG: Pt. to be I with HEP for gym and home exercises. Goal Time Frame: 4-6 Weeks Goal Progress: Progressing Goal 2:: STG: Pt. to have increased TUG time to less than 10sec. Goal Time Frame: 2-4 Weeks Goal Progress: Progressing Goal 3:: LTG: Pt. to improve 6 MWT to greater than 1200 feet without use of AD indicating increased stability and safety with gait. Goal Time Frame: 4-6 Weeks Goal Progress: Progressing Goal 4:: LTG: Pt. to be able ascend and descend stairs reciprocally with 1 HR without LOB. Goal Time Frame: 4-6 Weeks Goal Progress: Progressing Goal 5:: LTG: PT. to have full strength of BLEs, including full 5/5 R DF strength to allow for greater ability to ambulate with improved control. Goal Time Frame: 4-6 Weeks Goal Progress: Progressing Anticipated Interventions Patient/Client Instruction: Educate patient on: Condition, Plan of Care, Risk Factors, Benefits of Fitness Program For the Purpose of:: To foster healthy habits, To improve decision making, To facilitate caregiver knowledge, To improve self management, To prevent re- injury, To improve ability to perform tasks related to life management Therapeutic Exercise to Include: Strength training, Power training, Endurance training, Balance training, Coordination, Dynamic Lumbar Stabilization For the Purpose of:: To decrease swelling/inflammation, To increase ROM, To improve nutrient delivery to tissue, To increase oxygenation perfusion, To improve muscle performance and motor function, To improve gait and locomotor functions, To improve health of tissue, To decrease soft tissue restriction, To improve endurance, To improve balance Please do not hesitate to contact me at [phone] by phone or Fax: if you have questions or concerns regarding this new plan of care! Sincerely, Juancho Larry DPT
--- NOTE | 2022-03-23 18:59 | HP.SP.DC_ITS ---
ST Discharge Summary - Discharged: Discharge: WINSTON WESTFALL is an 81 year old male who was seen for initial cognitive linguistic and voice evaluation at [facility] on 11/13/21 s/p brain tumor resection and fall at home. Pt attended 24 additional consecutive sessions following initial evaluation to target attention, word retrieval, divergent naming, problem solving/reasoning, memory, executive functioning, vocal quality, diaphragmatic breathing, and safety awareness. Following re-evaluation on 01/29/22 of Pt?s current level of cognitive function, self-report, and caregiver report, Pt deemed appropriate for d/c from speech therapy at this time d/t progress towards goals becoming stagnant. Created lists of safe activities for Pt to participate in at home and activities that were not safe for him. Pt demonstrating cont'd difficulty with identifying WHY activities were unsafe for him. Participated in multiple discussions with Pt's spouse, Sushma, re: Pt participated in cont'd informal cognitive assessment this date. Lengthy discussions with and patient at the middle/end of session re: potential for dementia given memory changes, evidence of sundowning, regrowth of tumor, and increased confusion. Per spouse report Pt demonstrating little to no safety awareness at home re: taking medications at the wrong time, taking the trash out independently, etc. Pt provided w/home carry over activities to continue targeting complex executive functioning tasks. Per chart review of current PT notes, Pt continues to demonstrate increased difficulty with memory and safety awareness - spouse is reportedly aware. Pt officially discharged from speech therapy caseload on this date, 03/23/22, given stagnant progress towards stated goals. Thank you for allowing me to participate in the care of your Pt. Will reevaluate at Pt?s request following script from physician.
== END 2022-03-22 19:00 | disposition home or self-care (01) ==
LOC: PT 14:00
PROVIDERS: PCP Internal Medicine; Referring Provider Internal Medicine; Visit Provider Internal Medicine
DX: S06.30AD Unspecified focal traumatic brain injury with loss of consciousness status unknown, subsequent encounter (principal); R53.81 Other malaise
CPT/HCPCS: 92507; 97110; 97164

== ENCOUNTER → 2022-03-26 | Outpatient (CLI) | payer MEDICARE, SELFPAY ==
[2022-03-26 12:45] LABS: Bacteria 0 SEEN /hpf (None Seen); Mucous, Urine 0 SEEN /hpf (<or=2+); Squamous Epithelial Cells - UA 0 SEEN /hpf (0-5)
[2022-03-26 13:27] LABS: Color, Urine Yellow (Yellow); Glucose, Dipstick Normal (Normal); Ketone-Dipstick Negative (Negative); Leukocyte Esterase-Dipstick 500 /ul (Negative); Nitrite-Dipstick Negative (Negative); Occult Blood-Urine 250 /ul (Negative); Protein-Dipstick 30 mg/dl (Negative); Urine Bilirubin Dipstick Negative (Negative); Urine Clarity Sl. Cloudy (Clear); Urine Urobilinogen Normal (Normal)
[2022-03-26 13:36] LABS: Calcium Oxalate Crystals Ur RARE /hpf (<or=2+); Red Blood Cells-Urine 5-10 SEEN /hpf (0-5); White Blood Cells >100 SEEN /hpf (0-5)
== END | disposition home or self-care (01) ==
LOC: LABSPEC 12:25
PROVIDERS: PCP Internal Medicine; Referring Provider Family Medicine; Visit Provider Family Medicine
DX: N40.1 Benign prostatic hyperplasia with lower urinary tract symptoms (principal); R35.0 Frequency of micturition
CPT/HCPCS: 81001; 87077; 87086; 87088; 87186

== ENCOUNTER → 2022-04-28 | Outpatient (REF) | payer MEDICARE, SELFPAY ==
[2022-04-29 08:22] LABS: Mucous, Urine 0 SEEN /hpf (<or=2+); Squamous Epithelial Cells - UA 0 SEEN /hpf (0-5)
[2022-04-29 09:08] LABS: Color, Urine Yellow (Yellow); Glucose, Dipstick Negative (Normal); Urine Clarity Sl Cloudy (Clear)
[2022-04-29 09:09] LABS: Ketone-Dipstick Negative (Negative); Urine Bilirubin Dipstick Negative (Negative)
[2022-04-29 09:10] LABS: Protein-Dipstick 15 mg/dl (Negative); Urine Urobilinogen Negative (Normal)
[2022-04-29 09:11] LABS: Nitrite-Dipstick POSITIVE (Negative)
[2022-04-29 09:12] LABS: Leukocyte Esterase-Dipstick 500 /ul (Negative); Occult Blood-Urine 50 /ul (Negative)
[2022-04-29 09:19] LABS: White Blood Cells 50-100 SEEN /hpf (0-5)
[2022-04-29 09:20] LABS: Red Blood Cells-Urine 5-10 SEEN /hpf (0-5)
[2022-04-29 09:21] LABS: Amorphous Sediment 1+; Bacteria 1+ /hpf (None Seen)
== END ==
LOC: OLS.ACH 20:56
PROVIDERS: PCP Internal Medicine; Visit Provider Internal Medicine
DX: R50.9 Fever, unspecified (principal); R53.83 Other fatigue
CPT/HCPCS: 81001; 87077; 87086; 87088; 87186